=== PATIENT | male | born 1935 | race African-American/Black ===

== ENCOUNTER 2017-05-29 13:30 | Inpatient (IN) | payer OTHER, MEDICARE ==
[~2017-05-29] VITALS: Ht 170.2 cm; Wt 98.6 kg
[~2017-05-29 13:30] MED LIST: FURO1TAB93 PO; METO25 PO; POTA-243 PO
[2017-05-29 14:33] VITALS: BP 212/112; PULSE 83; RESP 18; TEMP 99.4; O2SAT 99
[2017-05-29] MEDS ORDERED: SODIUM CHLORIDE 0.9% FLUSH 10 ML FLUSH IVF PRN (14:45)
--- NOTE | 2017-05-29 14:54 | PD ---
HPI Chief Complaint: Edema Time Seen by Provider: 14:43 Travel History International Travel<30 days: No Contact w/Intl Traveler<30days: No Traveled to known affect area: No History of Present Illness HPI Patient is an 82-year-old male presenting to emergency department for evaluation of bilateral lower extremity edema. Patient states it was worse a few days ago. He usually keeps his legs elevated which helps. He denies any redness, drainage, foul odor, increased pain. He reports that on Saturday he was sitting in a chair eating when he turned and the chair flipped over. He denies any head injury or loss of consciousness. He is currently denying any chest pain, shortness breath, abdominal pain, nausea, vomiting, diarrhea. He states that he has not been on any medications since either the end of February the beginning march. 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 [facility] Past Medical History AAA: Yes Hypertension: Yes Past Surgical History Abdominal Aneurysm Repair: Yes Social History Alcohol Use: No Tobacco Use: No Substance Use: No Allergies-Medications (Allergen,Severity, Reaction): Coded Allergies: No Known Allergies (Verified , 02/13/09) Reported Meds & Prescriptions Reported Meds & Active Scripts Active Review of Systems Except as stated in HPI: all other systems reviewed are Neg Cardiovascular: Positive: Edema, No: Chest Pain or Discomfort Respiratory: No: Shortness of Breath Gastrointestinal: No: Nausea, Abdominal Pain Musculoskeletal: No: Myalgias Skin: Positive Dryness Neurologic: No: Weakness, Dizziness, Syncope Physical Exam Narrative GENERAL: Overweight, well-developed, alert elderly -[place] male. Presenting in no acute distress. SKIN: Warm and dry. Significantly dry, flaky, crusting skin to bilateral lower extremities. HEAD: Atraumatic. Normocephalic. EYES: Pupils equal and round. No scleral icterus. No injection or drainage. ENT: No nasal bleeding or discharge. Mucous membranes pink and moist. NECK: Trachea midline. No JVD. CARDIOVASCULAR: Mildly tachycardic. RESPIRATORY: No accessory muscle use. Clear to auscultation. Breath sounds equal bilaterally. GASTROINTESTINAL: Abdomen soft, non-tender, nondistended. Hepatic and splenic margins not palpable. MUSCULOSKELETAL: Extremities without clubbing, cyanosis, or edema. No obvious deformities. NEUROLOGICAL: Awake and alert. No obvious cranial nerve deficits. Motor grossly within normal limits. Five out of 5 muscle strength in the arms and legs. Normal speech. PSYCHIATRIC: Appropriate mood and affect; insight and judgment normal. Data Data Last Documented VS Vital Signs Date Time Temp Pulse Resp B/P (MAP) Pulse Ox O2 Delivery O2 Flow Rate FiO2 05/29/17 15:43 88 18 186/99 (128) 99 Room Air 05/29/17 14:33 99.4 Orders Orders Complete Blood Count With Diff (05/29/17 14:43) Comprehensive Metabolic Panel (05/29/17 14:43) B-Type Natriuretic Peptide (05/29/17 14:43) Act Partial Throm Time (Ptt) (05/29/17 14:43) Prothrombin Time / Inr (Pt) (05/29/17 14:43) Magnesium (Mg) (05/29/17 14:43) Urinalysis - C+S If Indicated (05/29/17 14:43) Iv Access Insert/Monitor (05/29/17 14:43) Electrocardiogram (05/29/17 14:43) Ecg Monitoring (05/29/17 14:43) Oximetry (05/29/17 14:43) Oxygen Administration (05/29/17 14:43) Chest, Single Ap (05/29/17 14:43) Sodium Chloride 0.9% Flush (Ns Flush) (05/29/17 14:45) Metoprolol Tartrate Inj (Lopressor Inj) (05/29/17 15:00) Cath For Specimen (05/29/17 15:43) Ornicept Request For Service (05/29/17 17:17) Comprehensive Metabolic Panel (05/30/17 06:00) Free Thyroxine (T4) (05/30/17 06:00) Hemoglobin (Hgb) A1c (05/30/17 06:00) Magnesium (Mg) (05/30/17 06:00) Phosphorus (Po4) (05/30/17 06:00) Thyroid Stimulating Hormone (05/30/17 06:00) Complete Blood Count With Diff (05/30/17 06:00) Bedside Glucose NITHIN.CSUGAR (05/29/17 18:21) Blood Glucose Goal (Criteria) (05/29/17 18:21) Hypoglycemia 70 Mg/Dl Or < (05/29/17 18:21) Notify Dr: Other (05/29/17 18:21) Dextrose 50% In Mel (Vial) Inj (D50w (Vi (05/29/17 18:30) Glucagon Inj (Glucagon Inj) (05/29/17 18:30) Case Management Consult (05/29/17 ) Insulin Aspart Supplemtl Scale (Novolog (05/29/17 21:00) Clonidine (Catapres) (05/29/17 18:30) Admit Order (Ed Use Only) (05/29/17 18:22) Labs Laboratory Tests Test 05/29/17 14:50 White Blood Count 8.3 TH/MM3 Red Blood Count 4.22 MIL/MM3 Hemoglobin 13.2 GM/DL Hematocrit 38.1 % Mean Corpuscular Volume 90.3 FL Mean Corpuscular Hemoglobin 31.4 PG Mean Corpuscular Hemoglobin Concent 34.8 % Red Cell Distribution Width 14.1 % Platelet Count 213 TH/MM3 Mean Platelet Volume 8.6 FL Neutrophils (%) (Auto) 78.9 % Lymphocytes (%) (Auto) 9.5 % Monocytes (%) (Auto) 10.2 % Eosinophils (%) (Auto) 0.7 % Basophils (%) (Auto) 0.7 % Neutrophils # (Auto) 6.6 TH/MM3 Lymphocytes # (Auto) 0.8 TH/MM3 Monocytes # (Auto) 0.9 TH/MM3 Eosinophils # (Auto) 0.1 TH/MM3 Basophils # (Auto) 0.1 TH/MM3 CBC Comment DIFF FINAL Differential Comment Prothrombin Time 11.2 SEC Prothromb Time International Ratio 1.1 RATIO Activated Partial Thromboplast Time 30.9 SEC Blood Urea Nitrogen 46 MG/DL Creatinine 2.98 MG/DL Random Glucose 123 MG/DL Total Protein 7.2 GM/DL Albumin 3.2 GM/DL Calcium Level 8.6 MG/DL Magnesium Level 2.2 MG/DL Alkaline Phosphatase 92 U/L Aspartate Amino Transf (AST/SGOT) 83 U/L Alanine Aminotransferase (ALT/SGPT) 24 U/L Total Bilirubin 1.1 MG/DL Sodium Level 140 MEQ/L Potassium Level 4.7 MEQ/L Chloride Level 106 MEQ/L Carbon Dioxide Level 23.8 MEQ/L Anion Gap 10 MEQ/L Estimat Glomerular Filtration Rate 25 ML/MIN B-Type Natriuretic Peptide 623 PG/ML [facility] Medical Decision Making Medical Screen Exam Complete: Yes Emergency Medical Condition: Yes Medical Record Reviewed: Yes Interpretation(s) Vital Signs Date Time Temp Pulse Resp B/P (MAP) Pulse Ox O2 Delivery O2 Flow Rate FiO2 05/29/17 14:33 99.4 83 18 212/112 (145) 99 Differential Diagnosis CHF versus metabolic abnormality versus hypertensive urgency versus other Narrative Course Patient is an 82-year-old male that initially presented for evaluation of bilateral lower extremity edema. His family is not present at bedside and he currently states that he has suprapubic pressure and has trouble voiding. He reports that when he fell the other day he was dizzy prior to the fall. Labs and imaging ordered and pending, will assess urinalysis. Patient was hypertensive on arrival, he was given metoprolol 5 mg IV 1 dose. Blood pressure trended down. CBC with no acute findings, chemistry with elevated BUN and creatinine 46/2.98, BNP is 623, chest x-ray shows no acute disease. Dr. Jimenez use ultrasound machine to visualize bladder. There was a significant amount of urinary retention. Attempted coud catheter twice with no success. Paged on-call urologist. Dr. Osorio returned page. He requested urology cart. Trubates paged. Dr. Osorio came to the emergency department and began to insert urinary catheter when patient spontaneously urinated at the exact same moment. Dr. Osorio recommended patient be placed on Flomax and he can follow-up as outpatient in his office. Paged [facility], Dr. Lam returned page, accepted admit. Orders placed. Discussed Dr. Osorio recommendations with him as well. Diagnosis Primary Impression: ARF (acute renal failure) Qualified Codes: N17.9 - Acute kidney failure, unspecified Additional Impressions: HTN (hypertension) Qualified Codes: I10 - Essential (primary) hypertension CHF (congestive heart failure) Qualified Codes: I50.9 - Heart failure, unspecified Urinary hesitancy Admitting Information Admitting Physician Requests: Admit Condition: Stable Priay Llamas Aruna STRONG May 29, 2017 14:54
[2017-05-29 14:58] VITALS: O2SAT 99
[2017-05-29] MEDS ORDERED: METOPROLOL TARTRATE 5 MG/5 ML VIAL IV PUSH ONE (15:00)
--- NOTE | 2017-05-29 15:18 | RADRPT ---
EXAM DATE/TIME: 05/29/2017 15:07 [facility] COMPARISON: No previous studies available for comparison. INDICATIONS : Short of breath after syncopal episode. MEDICAL HISTORY : Hypertension. SURGICAL HISTORY : CABG. ENCOUNTER: Initial ACUITY: 1 day PAIN SCORE: 0/10 LOCATION: Bilateral chest FINDINGS: A single view of the chest demonstrates the lungs to be symmetrically aerated without evidence of mas s, infiltrate or effusion. The cardiomediastinal contours are unremarkable. There is evidence of pre vious cardiothoracic surgery. Osseous structures are intact. CONCLUSION: No acute disease. Kranthi Mcgrath MD on May 29, 2017 at 15:15 Board Certified Radiologist. This report was verified electronically.
[2017-05-29 15:21] LABS: AUTOMATED NEUTROPHIL # 6.6 TH/MM3 (1.8-7.7); BASOPHIL # 0.1 TH/MM3 (0-0.2); BASOPHIL % 0.7 % (0.0-2.0); EOSINOPHIL # 0.1 TH/MM3 (0-0.4); EOSINOPHIL % 0.7 % (0.0-4.0); HEMATOCRIT 38.1 % (39.0-51.0); HEMOGLOBIN 13.2 GM/DL (13.0-17.0); LYMPH % 9.5 % (9.0-44.0); LYMPHOCYTE # 0.8 TH/MM3 (1.0-4.8); MEAN CELL VOLUME 90.3 FL (80.0-100.0); MEAN CORPUSCULAR HEMOGLOBIN 31.4 PG (27.0-34.0); MEAN CORPUSCULAR HGB CONC 34.8 % (32.0-36.0); MEAN PLATELET VOLUME 8.6 FL (7.0-11.0); MONO % 10.2 % (0.0-8.0); MONOCYTE # 0.9 TH/MM3 (0-0.9); NEUT % 78.9 % (16.0-70.0); PLATELET COUNT 213 TH/MM3 (150-450); RED BLOOD COUNT 4.22 MIL/MM3 (4.50-5.90); RED CELL DISTRIBUTION WIDTH 14.1 % (11.6-17.2); WHITE BLOOD COUNT 8.3 TH/MM3 (4.0-11.0)
[2017-05-29 15:27] LABS: INTERNATIONAL NORMALIZED RATIO 1.1 RATIO; PROTHROMBIN TIME - PATIENT 11.2 SEC (9.8-11.6)
[2017-05-29 15:43] VITALS: BP 186/99; PULSE 88; RESP 18; O2SAT 99
[2017-05-29 15:56] LABS: ALKALINE PHOSPHATASE 92 U/L (45-117); TOTAL BILIRUBIN ADULT 1.1 MG/DL (0.2-1.0); TOTAL PROTEIN 7.2 GM/DL (6.4-8.2)
[2017-05-29 16:19] LABS: ALBUMIN 3.2 GM/DL (3.4-5.0); ALT (GPT) 24 U/L (12-78); AST (GOT) 83 U/L (15-37); BICARBONATE 23.8 MEQ/L (21.0-32.0); BLOOD UREA NITROGEN 46 MG/DL (7-18); CALCIUM 8.6 MG/DL (8.5-10.1); CHLORIDE 106 MEQ/L (98-107); CREATININE 2.98 MG/DL (0.60-1.30); GLOMERULAR FILTRATION RATE 25 ML/MIN (>89); GLUCOSE,RANDOM 123 MG/DL (74-106); MAGNESIUM 2.2 MG/DL (1.5-2.5); SODIUM (NA) 140 MEQ/L (136-145)
[2017-05-29 18:26] VITALS: BP 174/90; PULSE 88; RESP 18; O2SAT 99
[2017-05-29] MEDS ORDERED: BISACODYL 10 MG SUPP RECTAL PRN ×2 (18:30)
[2017-05-29] MEDS ORDERED: oxyCODONE/ACETAMINOPHEN 10 MG/325 MG TAB PO PRN (18:30)
[2017-05-29] MEDS ORDERED: SENNOSIDES 8.6 MG TAB PO PRN ×2 (18:30)
[2017-05-29] MEDS ORDERED: amLODIPine BESYLATE 5 MG TAB PO ONE (18:30)
[2017-05-29] MEDS ORDERED: ACETAMINOPHEN 325 MG TAB PO PRN ×2 (18:30)
[2017-05-29] MEDS ORDERED: NALOXONE HCL 0.4 MG/ML AMP IV PUSH PRN ×2 (18:30)
[2017-05-29] MEDS ORDERED: LACTULOSE SYRUP 20 GM/30 ML CUP PO PRN ×2 (18:30)
[2017-05-29] MEDS ORDERED: FUROSEMIDE 40 MG TAB PO SCH (18:30)
[2017-05-29] MEDS ORDERED: GLUCAGON 1 MG/ML VIAL OTHER PRN (18:30)
[2017-05-29] MEDS ORDERED: MAGNESIUM HYDROXIDE SUSP 30 ML CUP PO PRN ×2 (18:30)
[2017-05-29] MEDS ORDERED: oxyCODONE/ACETAMINOPHEN 5 MG/325 MG TAB PO PRN (18:30)
[2017-05-29] MEDS ORDERED: MORPHINE SULFATE 2 MG/ML SYRINGE IV PUSH PRN (18:30)
[2017-05-29] MEDS ORDERED: ONDANSETRON HCL 4 MG/2 ML VIAL IVP PRN (18:30)
[2017-05-29] MEDS ORDERED: SODIUM CHLORIDE 0.9% FLUSH 10 ML FLUSH IV FLUSH PRN (18:30)
[2017-05-29] MEDS ORDERED: PROCHLORPERAZINE 25 MG SUPP RECTAL PRN (18:30)
[2017-05-29] MEDS ORDERED: DEXTROSE 50% IN WATER 50 ML VIAL(D50) IV PUSH PRN (18:30)
[2017-05-29] MEDS ORDERED: MORPHINE SULFATE 4 MG/ML INJ IV PUSH PRN (19:15)
[2017-05-29] MEDS: TAMSULOSIN HCL 0.4 MG CAP PO SCH (19:30)
[2017-05-29 20:04] LABS: AMORPHOUS SEDIMENT, URINE RARE; BACTERIA, URINE OCC /hpf; BILIRUBIN, URINE NEG (NEG); BLOOD, URINE LARGE (NEG); GLUCOSE,URINE NEG (NEG); KETONE, URINE NEG (NEG); NITRITE,URINE NEG (NEG); URINE LEUKOCYTE ESTERASE MOD (NEG)
[2017-05-29 20:05] LABS: URINE COLOR LIGHT-RED (YELLW/STRAW)
[2017-05-29] MEDS: METOPROLOL TARTRATE 25 MG TAB PO SCH (20:32)
[2017-05-29] MEDS: HEPARIN SODIUM - SQ 10,000 UNITS/ML VIAL SQ SCH (20:32)
[2017-05-29] MEDS: SODIUM CHLORIDE 0.9% FLUSH 10 ML FLUSH IV FLUSH SCH (20:32)
[2017-05-29] MEDS: DOCUSATE SODIUM 50 MG/SENNA 8.6 MG TAB PO SCH (20:32)
--- NOTE | 2017-05-29 20:42 | HHI.HP ---
[facility] Unknown Admission Diagnosis ARF, CHF, HTN Diagnoses: Travel History International Travel<30 Days: No Contact w/Intl Traveler <30 Da: No Traveled to Known Affected Are: No History of Present Illness 82-year-old male with a past medical history significant for hypertension, hyperlipidemia, borderline diabetes mellitus and history of DVT presents to the emergency department for evaluation of a fall. The patient complains of bilateral lower extremity edema for months and is noncompliant with his home medications. Patient denies any history of CHF. The patient reports that he was on the ground for 2-3 hours after his fall. He denies any loss of consciousness. He states he was trying to put on a sock when he lost his balance and fell onto his buttock. He complains of bilateral hip pain. He denies any head trauma. The patient states that he has had increasing fatigue and weakness over the past several months. He has not seen his doctor since February and has been noncompliant with all medication since that time. Patient denies fever/chills. Denies shortness of breath or chest pain. Denies nausea/vomiting/diarrhea. No lateralizing signs/symptoms. He is an extremely poor historian. Review of Systems Except as stated in HPI: all other systems reviewed are Neg Past Family Social History Past Medical History Hypertension Hyperlipidemia Diabetes mellitus? History of DVT 1, not on chronic anticoagulation Past Surgical History Aortic dissection repair Reported Medications Reported Meds & Active Scripts Active Allergies: Coded Allergies: No Known Allergies (Verified , 02/13/09) Family History Mother with diabetes mellitus Social History Denies tobacco, illicit drugs. Rare alcohol Physical Exam Vital Signs Vital Signs Date Time Temp Pulse Resp B/P (MAP) Pulse Ox O2 Delivery O2 Flow Rate FiO2 05/29/17 18:26 88 18 174/90 (118) 99 Room Air 05/29/17 15:43 88 18 186/99 (128) 99 Room Air 05/29/17 14:58 99 Room Air 05/29/17 14:58 99 05/29/17 14:33 99.4 83 18 212/112 (145) 99 Physical Exam GENERAL: Cecilia male lying in bed SKIN: Dry, scaly skin covering bilateral lower extremities with chronic skin changes present HEAD: Atraumatic. Normocephalic. No temporal or scalp tenderness. EYES: Pupils equal round and reactive. Extraocular motions intact. No scleral icterus. No injection or drainage. ENT: Nose without bleeding, purulent drainage or septal hematoma. Throat without erythema, tonsillar hypertrophy or exudate. Uvula midline. Airway patent. NECK: Trachea midline. No JVD or lymphadenopathy. Supple, nontender, no meningeal signs. CARDIOVASCULAR: Regular rate and rhythm without murmurs, gallops, or rubs. RESPIRATORY: Clear to auscultation. Breath sounds equal bilaterally. No wheezes , rales, or rhonchi. GASTROINTESTINAL: Abdomen soft, non-tender, nondistended. No hepato-splenomegaly , or palpable masses. No guarding. MUSCULOSKELETAL: 2+ pitting edema in the bilateral lower extremities NEUROLOGICAL: Awake and alert. Cranial nerves II through XII intact. Motor and sensory grossly within normal limits. Normal speech. Laboratory Laboratory Tests Test 05/29/17 14:50 05/29/17 18:02 White Blood Count 8.3 Red Blood Count 4.22 Hemoglobin 13.2 Hematocrit 38.1 Mean Corpuscular Volume 90.3 Mean Corpuscular Hemoglobin 31.4 Mean Corpuscular Hemoglobin Concent 34.8 Red Cell Distribution Width 14.1 Platelet Count 213 Mean Platelet Volume 8.6 Neutrophils (%) (Auto) 78.9 Lymphocytes (%) (Auto) 9.5 Monocytes (%) (Auto) 10.2 Eosinophils (%) (Auto) 0.7 Basophils (%) (Auto) 0.7 Neutrophils # (Auto) 6.6 Lymphocytes # (Auto) 0.8 Monocytes # (Auto) 0.9 Eosinophils # (Auto) 0.1 Basophils # (Auto) 0.1 CBC Comment DIFF FINAL Differential Comment Prothrombin Time 11.2 Prothromb Time International Ratio 1.1 Activated Partial Thromboplast Time 30.9 Blood Urea Nitrogen 46 Creatinine 2.98 Random Glucose 123 Total Protein 7.2 Albumin 3.2 Calcium Level 8.6 Magnesium Level 2.2 Alkaline Phosphatase 92 Aspartate Amino Transf (AST/SGOT) 83 Alanine Aminotransferase (ALT/SGPT) 24 Total Bilirubin 1.1 Sodium Level 140 Potassium Level 4.7 Chloride Level 106 Carbon Dioxide Level 23.8 Anion Gap 10 Estimat Glomerular Filtration Rate 25 B-Type Natriuretic Peptide 623 Urine Color LIGHT-RED Urine Turbidity HAZY Urine pH 6.0 Urine Specific Filley 1.017 Urine Protein 300 Urine Glucose (UA) NEG Urine Ketones NEG Urine Occult Blood LARGE Urine Nitrite NEG Urine Bilirubin NEG Urine Urobilinogen LESS THAN 2.0 Urine Leukocyte Esterase MOD Urine RBC Urine WBC 83 Urine Amorphous Sediment RARE Urine Bacteria OCC Microscopic Urinalysis Comment CULTURE INDICATED Date/Time Source Procedure Growth Status 05/29/17 18:02 Urine Clean Catch Urine Culture Pending Received Result Diagram: 05/29/17 1450 05/29/17 1450 Caprini VTE Risk Assessment Caprini VTE Risk Assessment: Mod/High Risk (score >= 2) Caprini Risk Assessment Model Point Value = 1 Point Value = 2 Point Value = 3 Point Value = 5 Age 41-60 Minor surgery BMI > 25 kg/m2 Swollen legs Varicose veins or History of unexplained or recurrent spontaneous Oral contraceptives or hormone replacement Sepsis (< 1 month) Serious lung disease, including pneumonia (< 1 month) Abnormal pulmonary function Acute myocardial infarction Congestive heart failure (< 1 month) History of inflammatory bowel disease Medical patient at bed rest Age 61-74 Arthroscopic surgery Major open surgery (> 45 min) Laparoscopic surgery (> 45 min) Malignancy Confined to bed (> 72 hours) Immobilizing plaster cast Central venous access Age >= 75 History of VTE Family history of VTE Factor V Leiden Prothrombin 12508T Lupus anticoagulant Anticardiolipin antibodies Elevated serum homocysteine Heparin-induced thrombocytopenia Other congenital or acquired thrombophilia Stroke (< 1 month) Elective arthroplasty Hip, pelvis, or leg fracture Acute spinal cord injury (< 1 month) Prophylaxis Regimen Total Risk Factor Score Risk Level Prophylaxis Regimen 0-1 Low Early ambulation 2 Moderate Order ONE of the following: *Sequential Compression Device (SCD) *Heparin 5000 units SQ BID 3-4 Higher Order ONE of the following medications: *Heparin 5000 units SQ TID *Enoxaparin/Lovenox 40 mg SQ daily (WT < 150 kg, CrCl > 30 mL/min) *Enoxaparin/Lovenox 30 mg SQ daily (WT < 150 kg, CrCl > 10-29 mL/min) *Enoxaparin/Lovenox 30 mg SQ BID (WT < 150 kg, CrCl > 30 mL/min) AND/OR *Sequential Compression Device (SCD) 5 or more Highest Order ONE of the following medications: *Heparin 5000 units SQ TID (Preferred with Epidurals) *Enoxaparin/Lovenox 40 mg SQ daily (WT < 150 kg, CrCl > 30 mL/min) *Enoxaparin/Lovenox 30 mg SQ daily (WT < 150 kg, CrCl > 10-29 mL/min) *Enoxaparin/Lovenox 30 mg SQ BID (WT < 150 kg, CrCl > 30 mL/min) AND *Sequential Compression Device (SCD) Assessment and Plan Assessment and Plan Assessment/plan: 1. Fall Patient suffered a mechanical fall Complaining of bilateral hip pain Pelvic x-ray pending PT 2. Acute kidney injury BUN/creatinine 46/2.98 Baseline unknown Concern for rhabdo given fall, CK pending Gentle IV fluid hydration given lower extremity edema Monitor renal function Consider nephrology consult if renal function does not improve 3. Bilateral lower extremity edema Patient with history of DVT; bilateral ultrasound pending BMP 623, echo pending IV Lasix - 20 mg twice a day given ROBINSON Chest x-ray with no signs of volume overload, personally reviewed ACS rule out pending 4. Hypertension/hyperlipidemia Metoprolol with clonidine when necessary Lipid profile pending 5. ? Diabetes mellitus A1c pending Sliding scale insulin Monitor blood glucose FEN Renal diet NS at 70 cc/hr Electrolytes: monitor and replete prn Heparin Physician Certification 2 Midnight Certification Type: Admission for Inpatient Services Order for Inpatient Services The services are ordered in accordance with Medicare regulations or non- Medicare payer requirements, as applicable. In the case of services not specified as inpatient-only, they are appropriately provided as inpatient services in accordance with the 2-midnight benchmark. Estimated LOS (days): 2 2 days is the estimated time the patient will need to remain in the hospital, assuming treatment plan goals are met and no additional complications. Post-Hospital Plan: Not yet determined Diana Roman MD May 29, 2017 20:42
[2017-05-29] MEDS: INSULIN ASPART SUPPLEMENTAL SCALE SQ SCH (21:00)
[2017-05-29] MEDS ORDERED: DOCUSATE SODIUM 50 MG/SENNA 8.6 MG TAB PO SCH (21:00)
--- NOTE | 2017-05-29 21:30 | RADRPT ---
EXAM DATE/TIME: 05/29/2017 20:53 [facility] COMPARISON: No previous studies available for comparison. INDICATIONS : Pelvic pain after fall. MEDICAL HISTORY : Hypertension. SURGICAL HISTORY : None. ENCOUNTER: Initial ACUITY: 3 days PAIN SCORE: 4/10 LOCATION: Bilateral pelvis FINDINGS: An acute abnormality is not seen. The hips joints are normally aligned. The pubic symphysis is aligne d. There is fusion of the sacroiliac joints. There is chronic hypertrophic change of the lateral aspe ct of the iliac bones bilaterally being more prominent on the right. There is degenerative change in the lower lumbar spine. Clips are seen over the left hip region. CONCLUSION: Chronic change. Nestor Sorensen MD on May 29, 2017 at 21:26 Board Certified Radiologist. This report was verified electronically.
[2017-05-29 22:17] LABS: TROPONIN I 0.48 NG/ML (0.02-0.05)
--- NOTE | 2017-05-29 22:35 | RADRPT ---
EXAM DATE/TIME: 05/29/2017 22:18 [facility] COMPARISON: No previous studies available for comparison. INDICATIONS : Bilateral leg swelling. MEDICAL HISTORY : Aneurysm, abdominal. Hypertension. SURGICAL HISTORY : Abdominal aortic aneurysm repair. Cervical surgery. ENCOUNTER: Initial ACUITY: 2 months PAIN SCORE: 8/10 LOCATION: Bilateral legs. TECHNIQUE: Venous ultrasound of the left and right leg was performed from the inguinal ligament to the proximal calf. Real-time, color Doppler and spectral tracing, compression and augmentation techniques were us ed. FINDINGS: RIGHT LEG: There is a pseudoaneurysm which is primarily thrombosed seen at the right groin region measuring 3.5 x 3.7 x 3.3 cm. There is normal compressibility of the deep venous system from the inguinal region to the proxim al calf. No echogenic clot is seen in the lumen of the common femoral, femoral, popliteal, and poste rior tibial veins. There is a normal response of the venous system to proximal and distal augmentati on and respiration. LEFT LEG: There is normal compressibility of the deep venous system from the inguinal region to the proximal ca lf. No echogenic clot is seen in the lumen of the common femoral, femoral, popliteal, and posterior tibial veins. There is a normal response of the venous system to proximal and distal augmentation an d respiration. CONCLUSION: 1. No DVT. 2. 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 This is seen at the anastomosis with a graft. There is c olor-flow at the orifice of the pseudoaneurysm. The vast majority of the pseudoaneurysm is thrombosed . Nestor Sorensen MD on May 29, 2017 at 22:31 Board Certified Radiologist. This report was verified electronically.
[2017-05-29] MEDS: cloNIDine HCL 0.1 MG TAB PO PRN (22:59)
[2017-05-29 23:00] VITALS: BP 183/99; PULSE 76; RESP 18; TEMP 98.6; O2SAT 99
[2017-05-30] VITALS (11 sets, daily range): BP systolic 123–184; BP diastolic 57–90; PULSE 69–89; RESP 16–20; TEMP 97.5–98.6; O2SAT 93–100
[2017-05-30 02:14] LABS: BASOPHIL # 0.1 TH/MM3 (0-0.2); BASOPHIL % 0.6 % (0.0-2.0); EOSINOPHIL # 0.2 TH/MM3 (0-0.4); EOSINOPHIL % 2.5 % (0.0-4.0); HEMATOCRIT 33.8 % (39.0-51.0); HEMOGLOBIN 11.8 GM/DL (13.0-17.0); LYMPH % 13.4 % (9.0-44.0); LYMPHOCYTE # 1.1 TH/MM3 (1.0-4.8); MEAN CELL VOLUME 91.2 FL (80.0-100.0); MEAN CORPUSCULAR HEMOGLOBIN 31.9 PG (27.0-34.0); MEAN PLATELET VOLUME 8.1 FL (7.0-11.0); MONO % 12.5 % (0.0-8.0); MONOCYTE # 1.1 TH/MM3 (0-0.9); PLATELET COUNT 182 TH/MM3 (150-450); RED BLOOD COUNT 3.71 MIL/MM3 (4.50-5.90); WHITE BLOOD COUNT 8.5 TH/MM3 (4.0-11.0)
[2017-05-30 02:51] LABS: ALBUMIN 2.5 GM/DL (3.4-5.0); ALKALINE PHOSPHATASE 78 U/L (45-117); ALT (GPT) 22 U/L (12-78); AST (GOT) 59 U/L (15-37); BICARBONATE 23.8 MEQ/L (21.0-32.0); BLOOD UREA NITROGEN 45 MG/DL (7-18); CALCIUM 7.8 MG/DL (8.5-10.1); CHLORIDE 109 MEQ/L (98-107); CREATININE 2.86 MG/DL (0.60-1.30); GLOMERULAR FILTRATION RATE 26 ML/MIN (>89); GLUCOSE,RANDOM 121 MG/DL (74-106); PHOSPHORUS 2.9 MG/DL (2.5-4.9); SODIUM (NA) 141 MEQ/L (136-145); TOTAL BILIRUBIN ADULT 0.7 MG/DL (0.2-1.0); TOTAL PROTEIN 5.8 GM/DL (6.4-8.2); TROPONIN I 0.46 NG/ML (0.02-0.05)
[2017-05-30 07:39] LABS: CHOLESTEROL/ HDL RATIO 3.87 RATIO; HDL CHOLESTEROL 48.8 MG/DL (40.0-60.0)
[2017-05-30] MEDS: INSULIN ASPART SUPPLEMENTAL SCALE SQ SCH ×4 (08:00→20:58)
[2017-05-30] MEDS: amLODIPine BESYLATE 5 MG TAB PO SCH (08:44)
[2017-05-30] MEDS: TAMSULOSIN HCL 0.4 MG CAP PO SCH (08:44)
[2017-05-30] MEDS: METOPROLOL TARTRATE 25 MG TAB PO SCH ×2 (08:44→20:57)
[2017-05-30] MEDS: DOCUSATE SODIUM 50 MG/SENNA 8.6 MG TAB PO SCH ×2 (08:44→20:57)
[2017-05-30] MEDS: HEPARIN SODIUM - SQ 10,000 UNITS/ML VIAL SQ SCH ×2 (08:45→20:57)
[2017-05-30] MEDS: SODIUM CHLORIDE 0.9% FLUSH 10 ML FLUSH IV FLUSH SCH ×2 (08:46→21:26)
[2017-05-30] MEDS ORDERED: FUROSEMIDE 20 MG/2 ML VIAL IV PUSH SCH (09:00)
[2017-05-30] MEDS: SODIUM CHLOR 0.9% 1000 ML INJ 1,000 ML IV SCH ×3 (10:48→23:39)
--- NOTE | 2017-05-30 13:25 | EKG ---
Date Performed: 05/29/2017 Time Performed: 15:16:38 PTAGE: 82 years EKG: Sinus rhythm WITH OCCASIONAL SUPRAVENTRICULAR PREMATURE COMPLEXES POSSIBLE LEFT ATRIAL ENLARGEMENT MARKED LEFT AX IS DEVIATION INCOMPLETE RIGHT BUNDLE BRANCH BLOCK LEFT VENTRICULAR HYPERTROPHY AND ST-T CHANGE ABNORM AL ECG Compared to PREVIOUS TRACING , left ventricular hypertrophy with repolarization changes are new. PREV IOUS TRACIN11/10/2000 15.59 DOCTOR: Luisito Chris Interpretating Date/Time 05/30/2017 13:23:59
--- NOTE | 2017-05-30 14:03 | ECHRPT ---
Indication: Cardiomyopathy, unspecified CONCLUSIONS Normal left ventricular size and wall thickness. The left ventricular systolic function is normal wi th an estimated ejection fraction in the range of 55-60%. Poor apical views; regional wall motion abnorm alities cannot be excluded. Trace mitral valve regurgitation. The aortic valve is not well visualized. Trace aortic valve regurgitation. BP: 123 / 64 HR: 69 Rhythm: Sinus MEASUREMENTS (Male / Female) Normal Values Technical Quality:Good 2D ECHO LV Diastolic Diameter PLAX 4.8 cm 4.2 - 5.9 / 3.9 - 5.3 cm LV Systolic Diameter PLAX 3.9 cm IVS Diastolic Thickness 1.0 cm 0.6 - 1.0 / 0.6 - 0.9 cm LVPW Diastolic Thickness 1.0 cm 0.6 - 1.0 / 0.6 - 0.9 cm LV Relative Wall Thickness 0.4 LVOT Diameter 2.2 cm M-MODE Aortic Root Diameter MM 2.5 cm LA Systolic Diameter MM 3.6 cm LA Ao Ratio MM 1.4 AV Cusp Separation MM 1.8 cm DOPPLER AV Peak Velocity 105.0 cm/s AV Peak Gradient 4.4 mmHg LVOT Peak Velocity 62.2 cm/s LVOT Peak Gradient 1.5 mmHg AV Area Cont Eq pk 2.3 cm MR Peak Velocity 337.5 cm/s MR Peak Gradient 45.6 mmHg Mitral E Point Velocity 55.3 cm/s Mitral A Point Velocity 38.5 cm/s Mitral E to A Ratio 1.4 LV E' Lateral Velocity 6.1 cm/s Mitral E to LV E' Lateral Ratio 9.0 LV E' Septal Velocity 4.1 cm/s Mitral E to LV E' Septal Ratio 13.5 PV Peak Velocity 96.4 cm/s PV Peak Gradient 3.7 mmHg FINDINGS LEFT VENTRICLE Normal left ventricular size and wall thickness. The left ventricular systolic function is normal wi th an estimated ejection fraction in the range of 55-60%. Poor apical views; regional wall motion abnorm alities cannot be excluded. RIGHT VENTRICLE Normal right ventricular size and systolic function. LEFT ATRIUM The left atrial size is normal. RIGHT ATRIUM The right atrial size is normal. ATRIAL SEPTUM Normal atrial septal thickness without atrial level shunting by limited color doppler interrogation. AORTA The aortic root and proximal ascending aorta are normal in size on limited imaging. MITRAL VALVE Trace mitral valve regurgitation. AORTIC VALVE The aortic valve is not well visualized. Trace aortic valve regurgitation. TRICUSPID VALVE Structurally normal tricuspid valve. No tricuspid valve stenosis or regurgitation. PULMONARY VALVE Trivial pulmonary valve regurgitation. VESSELS The inferior vena cava is normal in size. PERICARDIUM No pericardial effusion. Speedy Clayton MD (Electronically Signed) Final Date:30 May 2017 14:02
[2017-05-30 14:10] LABS: HEMOGLOBIN A1C 4.4 % (4.3-6.0)
--- NOTE | 2017-05-30 15:48 | HHI.PR ---
Subjective Remarks 82-year-old male with a past medical history significant for hypertension, hyperlipidemia, borderline diabetes mellitus and history of DVT presents to the emergency department for evaluation of a fall. The patient complains of bilateral lower extremity edema for months and is noncompliant with his home medications. Patient denies any history of CHF. The patient reports that he was on the ground for 2-3 hours after his fall. He denies any loss of consciousness. He states he was trying to put on a sock when he lost his balance and fell onto his buttock. He complains of bilateral hip pain. He denies any head trauma. The patient states that he has had increasing fatigue and weakness over the past several months. He has not seen his doctor since February and has been noncompliant with all medication since that time. Patient denies fever/chills. Denies shortness of breath or chest pain. Denies nausea/vomiting/diarrhea. No lateralizing signs/symptoms. He is an extremely poor historian. 05-30 medications restarted checking UA DW RN AND PT NO CURRENT COMPLAINTS BREATHING BETTER NEEDS TO WORK WITH PT AND OT Objective Vitals Vital Signs Date Time Temp Pulse Resp B/P (MAP) Pulse Ox O2 Delivery O2 Flow Rate FiO2 05/30/17 11:57 98.3 76 18 136/65 (88) 99 05/30/17 08:42 99 21 05/30/17 08:00 98.3 69 18 123/64 (83) 100 05/30/17 03:57 98.6 74 18 124/57 (79) 100 05/30/17 00:50 74 16 139/83 (101) 100 05/29/17 23:00 98.6 76 18 183/99 (127) 99 05/29/17 22:15 05/29/17 18:26 88 18 174/90 (118) 99 Room Air 05/29/17 15:43 88 18 186/99 (128) 99 Room Air I/O 05/29/17 05/29/17 05/29/17 05/30/17 05/30/17 05/30/17 07:00 15:00 23:00 07:00 15:00 23:00 Intake Total 360 ml 400 ml Output Total 250 ml Balance 360 ml 150 ml Intake Oral 360 ml 400 ml Output Urine Total 250 ml # Voids 3 # Bowel Movements 0 1 Result Diagram: 05/30/17 02005/30/17 020 Other Results Laboratory Tests Test 05/29/17 14:50 05/29/17 18:02 05/29/17 20:30 05/30/17 02:00 White Blood Count 8.3 TH/MM3 8.5 TH/MM3 Red Blood Count 4.22 MIL/MM3 3.71 MIL/MM3 Hemoglobin 13.2 GM/DL 11.8 GM/DL Hematocrit 38.1 % 33.8 % Mean Corpuscular Volume 90.3 FL 91.2 FL Mean Corpuscular Hemoglobin 31.4 PG 31.9 PG Mean Corpuscular Hemoglobin Concent 34.8 % 35.0 % Red Cell Distribution Width 14.1 % 14.0 % Platelet Count 213 TH/MM3 182 TH/MM3 Mean Platelet Volume 8.6 FL 8.1 FL Neutrophils (%) (Auto) 78.9 % 71.0 % Lymphocytes (%) (Auto) 9.5 % 13.4 % Monocytes (%) (Auto) 10.2 % 12.5 % Eosinophils (%) (Auto) 0.7 % 2.5 % Basophils (%) (Auto) 0.7 % 0.6 % Neutrophils # (Auto) 6.6 TH/MM3 6.0 TH/MM3 Lymphocytes # (Auto) 0.8 TH/MM3 1.1 TH/MM3 Monocytes # (Auto) 0.9 TH/MM3 1.1 TH/MM3 Eosinophils # (Auto) 0.1 TH/MM3 0.2 TH/MM3 Basophils # (Auto) 0.1 TH/MM3 0.1 TH/MM3 CBC Comment DIFF FINAL DIFF FINAL Differential Comment Prothrombin Time 11.2 SEC Prothromb Time International Ratio 1.1 RATIO Activated Partial Thromboplast Time 30.9 SEC Blood Urea Nitrogen 46 MG/DL 45 MG/DL Creatinine 2.98 MG/DL 2.86 MG/DL Random Glucose 123 MG/DL 121 MG/DL Total Protein 7.2 GM/DL 5.8 GM/DL Albumin 3.2 GM/DL 2.5 GM/DL Calcium Level 8.6 MG/DL 7.8 MG/DL Magnesium Level 2.2 MG/DL 2.0 MG/DL Alkaline Phosphatase 92 U/L 78 U/L Aspartate Amino Transf (AST/SGOT) 83 U/L 59 U/L Alanine Aminotransferase (ALT/SGPT) 24 U/L 22 U/L Total Bilirubin 1.1 MG/DL 0.7 MG/DL Sodium Level 140 MEQ/L 141 MEQ/L Potassium Level 4.7 MEQ/L 4.2 MEQ/L Chloride Level 106 MEQ/L 109 MEQ/L Carbon Dioxide Level 23.8 MEQ/L 23.8 MEQ/L Anion Gap 10 MEQ/L 8 MEQ/L Estimat Glomerular Filtration Rate 25 ML/MIN 26 ML/MIN Hemoglobin A1c 4.4 % B-Type Natriuretic Peptide 623 PG/ML Urine Color LIGHT-RED Urine Turbidity HAZY Urine pH 6.0 Urine Specific [place] 1.017 Urine Protein 300 mg/dL Urine Glucose (UA) NEG mg/dL Urine Ketones NEG mg/dL Urine Occult Blood LARGE Urine Nitrite NEG Urine Bilirubin NEG Urine Urobilinogen LESS THAN 2.0 MG/DL Urine Leukocyte Esterase MOD Urine RBC /hpf Urine WBC 83 /hpf Urine Amorphous Sediment RARE Urine Bacteria OCC /hpf Microscopic Urinalysis Comment CULTURE INDICATED Total Creatine Kinase 1333 U/L 1133 U/L Creatine Kinase MB 9.1 NG/ML 7.6 NG/ML Creatine Kinase MB % 0.7 % 0.7 % Troponin I 0.48 NG/ML 0.46 NG/ML Phosphorus Level 2.9 MG/DL Free Thyroxine 1.40 NG/DL Thyroid Stimulating Hormone 3rd Gen 1.290 uIU/ML Test 05/30/17 05:22 Triglycerides Level 102 MG/DL Cholesterol Level 189 MG/DL LDL Cholesterol 120 MG/DL HDL Cholesterol 48.8 MG/DL Cholesterol/HDL Ratio 3.87 RATIO Imaging Last Impressions Chest X-Ray 05/29/17 1443 Signed Impressions: Service Date/Time: Monday, May 29, 2017 15:07 - CONCLUSION: No acute disease. Kranthi Mcgrath MD Pelvis X-Ray 05/29/17 0000 Signed Impressions: Service Date/Time: Monday, May 29, 2017 20:53 - CONCLUSION: Chronic change. Nestor Sorensen MD Lower Extremity Ultrasound 05/29/17 0000 Signed Impressions: Service Date/Time: Monday, May 29, 2017 22:18 - CONCLUSION: 1. No DVT. 2. 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 This is seen at the anastomosis with a graft. There is color-flow at the orifice of the pseudoaneurysm. The vast majority of the pseudoaneurysm is thrombosed. Nestor Sorensen MD Objective Remarks GENERAL: Cecilia male lying in bed SKIN: Dry, scaly skin covering bilateral lower extremities with chronic skin changes present MIDLINE INCISION FROM CHEST TO UMBILICUS OLD HEALED HEAD: Atraumatic. Normocephalic. No temporal or scalp tenderness. EYES: Pupils equal round and reactive. Extraocular motions intact. No scleral icterus. No injection or drainage. ENT: Nose without bleeding, purulent drainage or septal hematoma. Throat without erythema, tonsillar hypertrophy or exudate. Uvula midline. Airway patent. NECK: Trachea midline. No JVD or lymphadenopathy. Supple, nontender, no meningeal signs. CARDIOVASCULAR: Regular rate and rhythm without murmurs, gallops, or rubs. RESPIRATORY: Clear to auscultation. Breath sounds equal bilaterally. No wheezes , rales, or rhonchi. GASTROINTESTINAL: Abdomen soft, non-tender, nondistended. No hepato-splenomegaly , or palpable masses. No guarding. MUSCULOSKELETAL: 3+ pitting edema in the bilateral lower extremities BRAWNY EDEMA BL LE NEUROLOGICAL: Awake and alert. Cranial nerves II through XII intact. Motor and sensory grossly within normal limits. Normal speech. INSIGHT AND JUDGEMENT ARE GOOD MOOD AND BEHAVIOR ARE APPROPRIATE Medications and IVs Current Medications Sodium Chloride (NS Flush) 2 ml UNSCH PRN IVF FLUSH AFTER USING IV ACCESS; Start 05/29/17 at 14:45; Stop 05/29/17 at 18:47; Status DC Metoprolol Tartrate (Lopressor Inj) 5 mg ONCE ONCE IV PUSH Last administered on 05/29/17at 15:11; Start 05/29/17 at 15:00; Stop 05/29/17 at 15:01; Status DC Dextrose (D50w (Vial) Inj) 50 ml UNSCH PRN IV PUSH HYPOGLYCEMIA-SEE COMMENTS; Start 05/29/17 at 18:30 Glucagon (Glucagon Inj) 1 mg UNSCH PRN OTHER HYPOGLYCEMIA-SEE COMMENTS; Start 05/29/17 at 18:30 Insulin Aspart (NovoLOG SUPPLEMENTAL SCALE) 1 ACHS SLIDING SCALE SQ ; Start at 21:00 Clonidine (Catapres) 0.1 mg Q4H PRN PO SBP>160, DBP>90 Last administered on at 22:59; Start 05/29/17 at 18:30 Metoprolol Tartrate (Lopressor) 25 mg Q12HR PO Last administered on 05/30/17at 08:44; Start 05/29/17 at 21:00 Furosemide (Lasix) 40 mg DAILY PO ; Start 05/29/17 at 18:30; Stop 05/29/17 at 20 :29; Status DC Amlodipine Besylate (Norvasc) 5 mg ONCE ONCE PO Last administered on at 20:32; Start 05/29/17 at 18:30; Stop 05/29/17 at 18:48; Status DC Amlodipine Besylate (Norvasc) 5 mg DAILY PO Last administered on 05/30/17at 08: 44; Start 05/30/17 at 09:00 Tamsulosin HCl (Flomax) 0.4 mg DAILY PO Last administered on 05/30/17at 08:44; Start 05/29/17 at 19:30 Sodium Chloride (NS Flush) 2 ml UNSCH PRN IV FLUSH FLUSH AFTER USING IV ACCESS ; Start 05/29/17 at 18:30 Sodium Chloride (NS Flush) 2 ml BID IV FLUSH Last administered on 05/30/17at 08: 46; Start 05/29/17 at 21:00 Naloxone HCl (Narcan Inj) 0.4 mg UNSCH PRN IV PUSH SEE LABEL COMMENTS; Start at 18:30 Senna/Docusate Sodium (Danyelle-Colace) 1 tab BID PO ; Start 05/29/17 at 21:00; Stop 05/29/17 at 21:00; Status DC Magnesium Hydroxide (Milk Of Magnesia Liq) 30 ml Q12H PRN PO Mild constipation ; Start 05/29/17 at 18:30 Sennosides (Senokot) 17.2 mg Q12H PRN PO Moderate constipation; Start 05/29/17 at 18:30; Stop 05/29/17 at 18:50; Status DC Bisacodyl (Dulcolax Supp) 10 mg DAILY PRN RECTAL SEVERE CONSITIPATION; Start at 18:30 Lactulose (Lactulose Liq) 30 ml DAILY PRN PO SEVERE CONSITIPATION; Start at 18:30; Stop 05/29/17 at 18:50; Status DC Acetaminophen (Tylenol) 650 mg Q4H PRN PO TEMP > 100.4; Start 05/29/17 at 18:30 Ondansetron HCl (Zofran Inj) 4 mg Q6H PRN IVP NAUSEA OR VOMITING; Start at 18:30 Prochlorperazine (Compazine Supp) 25 mg Q12H PRN RECTAL NAUSEA OR VOMITING; Start 05/29/17 at 18:30 Heparin Sodium (Porcine) (Heparin Inj) 5,000 units Q12H SQ Last administered on 05/30/17at 08:45; Start 05/29/17 at 20:00 Acetaminophen (Tylenol) 650 mg Q6H PRN PO PAIN SCALE 1 TO 2; Start 05/29/17 at 18:30 Oxycodone/ Acetaminophen (Percocet 5-325 Mg) 1 tab Q6H PRN PO PAIN SCALE 3 TO 5; Start 05/29/17 at 18:30 Oxycodone/ Acetaminophen (Percocet 10-325 Mg) 1 tab Q6H PRN PO PAIN SCALE 6 TO 10; Start 05/29/17 at 18:30 Morphine Sulfate (Morphine Inj) 2 mg Q3H PRN IV PUSH Pain 3-5; if unable to take PO; Start 05/29/17 at 18:30 Morphine Sulfate (Morphine Inj) 4 mg Q3H PRN IV PUSH Pain 6-10;if unable to take PO; Start 05/29/17 at 19:15 Naloxone HCl (Narcan Inj) 0.4 mg UNSCH PRN IV PUSH SEE LABEL COMMENTS; Start at 18:30; Stop 05/29/17 at 18:50; Status DC Senna/Docusate Sodium (Danyelle-Colace) 1 tab BID PO Last administered on at 08:44; Start 05/29/17 at 21:00 Magnesium Hydroxide (Milk Of Magnesia Liq) 30 ml Q12H PRN PO Mild constipation ; Start 05/29/17 at 18:30; Stop 05/29/17 at 18:50; Status DC Sennosides (Senokot) 17.2 mg Q12H PRN PO Moderate constipation; Start 05/29/17 at 18:30 Bisacodyl (Dulcolax Supp) 10 mg DAILY PRN RECTAL SEVERE CONSITIPATION; Start at 18:30; Stop 05/29/17 at 19:03; Status DC Lactulose (Lactulose Liq) 30 ml DAILY PRN PO SEVERE CONSITIPATION; Start at 18:30 Sodium Chloride 1,000 ml @ 70 mls/hr [id number] IV ; Start 05/29/17 at 20:30 Furosemide (Lasix Inj) 20 mg BID@09,18 IV PUSH Last administered on 05/30/17at 08:45; Start 05/30/17 at 09:00 A/P Assessment and Plan 1. Fall Patient suffered a mechanical fall Complaining of bilateral hip pain Pelvic x-ray pending PT AND OT 2. Acute kidney injury BUN/creatinine 46/2.98 Baseline unknown Concern for rhabdo given fall, CK pending Gentle IV fluid hydration given lower extremity edema Monitor renal function Consider nephrology consult if renal function does not improve 3. Bilateral lower extremity edema Patient with history of DVT; bilateral ultrasound pending BMP 623, echo pending IV Lasix - 20 mg twice a day given ROBINSON Chest x-ray with no signs of volume overload, personally reviewed ACS rule out pending CONSULT VASCULAR REGARDING US OF RIGHT GROIN 4. Hypertension/hyperlipidemia Metoprolol with clonidine when necessary Lipid profile pending 5. ? Diabetes mellitus A1c pending Sliding scale insulin Monitor blood glucose FEN Renal diet NS at 70 cc/hr Electrolytes: monitor and replete prn Heparin UTI- ROCEPHIN 1 GRAM DAILY Discharge Planning PENDING IMPROVEMENT IN ACTIVITY AND OR KIDNEY FUNCTIONS AM LABS Hiro Tom DO May 30, 2017 15:48
--- NOTE | 2017-05-30 15:57 | PD.VS.CON ---
History of Present Illness Chief Complaint: R groin pseudoaneurysm Consult Requested by: Medical service History of Present Illness 82 yo male adm after a fall on Saturday that he says he landed flat on his back. C/o hip pain that led to R groin duplex. This showed a pseudoaneurysm. The patient has no groin pain. He has a notable history of aortic dissection repaired in 1972 according to the patient, but he is somewhat of a poor historian. He likely had a groin cannulation or even graft to facilitate cardiopulmonary bypass. Past/Family/Social History Past Medical History HTN XOL DM DVT aortic dissection Past Surgical History aortic dissection repair L neck surgery (?flap for trauma) Family History NC Home Medications Discontinued Reported Medications Potassium Chloride (Klor-Con 10 Meq) 10 Meq Tabcr, 10 MEQ PO DAILY 02/13/09 Furosemide (Lasix) 40 Mg Tab, 40 MG PO DAILY 02/13/09 Metoprolol Tartrate 25 mg (Metoprolol Tartrate 25 mg) 25 Mg Tab, 25 MG PO BID 02/13/09 Coded Allergies: No Known Allergies (Verified , 02/13/09) Review of Systems Cardiovascular: DENIES: Chest pain Physical Exam Vitals/I&O Date Time Temp Pulse Resp B/P (MAP) Pulse Ox O2 Delivery O2 Flow Rate FiO2 05/30/17 11:57 98.3 76 18 136/65 (88) 99 05/30/17 08:42 99 21 05/30/17 08:00 98.3 69 18 123/64 (83) 100 05/30/17 03:57 98.6 74 18 124/57 (79) 100 05/30/17 00:50 74 16 139/83 (101) 100 05/29/17 23:00 98.6 76 18 183/99 (127) 99 05/29/17 22:15 05/29/17 18:26 88 18 174/90 (118) 99 Room Air 05/30/17 05/30/17 05/30/17 07:00 15:00 23:00 Intake Total 360 ml 400 ml Output Total 250 ml Balance 360 ml 150 ml Neuro: alert, oriented, no distress HEENT: NC/AT Neck: L neck surgical incisions Heart: reg rate Lungs: nonlabored Abdomen: NT Vascular: generous R femoral pulse and normal L femoral pulse skin intact over R groin and nontender to palpation Extremities: venous stasis changes B Laboratory Tests Test 05/29/17 18:02 05/29/17 20:30 05/30/17 02:00 05/30/17 05:22 Urine Color LIGHT-RED Urine Turbidity HAZY Urine pH 6.0 Urine Specific [place] 1.017 Urine Protein 300 Urine Glucose (UA) NEG Urine Ketones NEG Urine Occult Blood LARGE Urine Nitrite NEG Urine Bilirubin NEG Urine Urobilinogen LESS THAN 2.0 Urine Leukocyte Esterase MOD Urine RBC Urine WBC 83 Urine Amorphous Sediment RARE Urine Bacteria OCC Microscopic Urinalysis Comment CULTURE INDICATED Total Creatine Kinase 1333 1133 Creatine Kinase MB 9.1 7.6 Creatine Kinase MB % 0.7 0.7 Troponin I 0.48 0.46 White Blood Count 8.5 Red Blood Count 3.71 Hemoglobin 11.8 Hematocrit 33.8 Mean Corpuscular Volume 91.2 Mean Corpuscular Hemoglobin 31.9 Mean Corpuscular Hemoglobin Concent 35.0 Red Cell Distribution Width 14.0 Platelet Count 182 Mean Platelet Volume 8.1 Neutrophils (%) (Auto) 71.0 Lymphocytes (%) (Auto) 13.4 Monocytes (%) (Auto) 12.5 Eosinophils (%) (Auto) 2.5 Basophils (%) (Auto) 0.6 Neutrophils # (Auto) 6.0 Lymphocytes # (Auto) 1.1 Monocytes # (Auto) 1.1 Eosinophils # (Auto) 0.2 Basophils # (Auto) 0.1 CBC Comment DIFF FINAL Differential Comment Blood Urea Nitrogen 45 Creatinine 2.86 Random Glucose 121 Total Protein 5.8 Albumin 2.5 Calcium Level 7.8 Phosphorus Level 2.9 Magnesium Level 2.0 Alkaline Phosphatase 78 Aspartate Amino Transf (AST/SGOT) 59 Alanine Aminotransferase (ALT/SGPT) 22 Total Bilirubin 0.7 Sodium Level 141 Potassium Level 4.2 Chloride Level 109 Carbon Dioxide Level 23.8 Anion Gap 8 Estimat Glomerular Filtration Rate 26 Free Thyroxine 1.40 Thyroid Stimulating Hormone 3rd Gen 1.290 Triglycerides Level 102 Cholesterol Level 189 LDL Cholesterol 120 HDL Cholesterol 48.8 Cholesterol/HDL Ratio 3.87 Date/Time Source Procedure Growth Status 05/29/17 18:02 Urine Clean Catch Urine Culture - Preliminary NO GROWTH IN 24 HOURS. Resulted Last 48 hours Impressions Chest X-Ray 05/29/17 1443 Signed Impressions: Service Date/Time: Monday, May 29, 2017 15:07 - CONCLUSION: No acute disease. Kranthi Mcgrath MD Pelvis X-Ray 05/29/17 0000 Signed Impressions: Service Date/Time: Monday, May 29, 2017 20:53 - CONCLUSION: Chronic change. Nestor Sorensen MD Lower Extremity Ultrasound 05/29/17 0000 Signed Impressions: Service Date/Time: Monday, May 29, 2017 22:18 - CONCLUSION: 1. No DVT. 2. 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 This is seen at the anastomosis with a graft. There is color-flow at the orifice of the pseudoaneurysm. The vast majority of the pseudoaneurysm is thrombosed. 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 1. I would recommend a CT C/A/P through thighs to eval the dissection as up to 30% become aneurysmal. Ideally, this should be CTA but given ATN this is not possible. A NC CT is a good start and would chambers through groins 2. I will order ABIs. If perfusion ok, can have compression for venous stasis. Will follow. Adam Murphy MD [facility] tack maker [facility] - Heart and Vascular Surgery at [facility] [phone] Adam Murphy MD May 30, 2017 15:57
[2017-05-30] MEDS: cefTRIAXone INJ 1,000 MG in SODIUM CHLORIDE 0.9% INJ 100 ML IV SCH (18:10)
--- NOTE | 2017-05-30 18:29 | MB ---
cc: Armani Avery MD DATE: 05/30/2017 REASON FOR CONSULTATION: Elevated BUN and creatinine, for evaluation. HISTORY OF PRESENT ILLNESS: This is an 82-year-old male with a past medical history of hypertension, diabetes mellitus, hyperlipidemia, history of deep vein thrombosis, possible chronic kidney disease, came to the hospital with complaint of leg edema and history of a fall. I was called to see the patient because of elevated BUN and creatinine. The patient was found to have creatinine of 2.9 on admission and now it is 2.8. He previously had creatinine of 1.2. This was in 2008. The patient denies any known history of renal disease. He was seen by his primary care physician in February and according to him, he was never told that he has any kidney disease. The patient has some prostatic symptoms and he admits that he has some trouble passing the urine for the last 2-3 weeks. He denies any history of dysuria or hematuria, but he has dysuria and hematuria after they tried to put the Scanlon catheter here in the hospital. He has this swelling in the legs, according to him, for the last 2 years, and it has been improving. He fell down 2 days before the admission. Denies any loss of consciousness. According to him, he did not keep his balance and he fell down. He was complaining of some hip pain, but denies taking any nonsteroidal anti-inflammatory drugs at home. PAST MEDICAL HISTORY: Hypertension, diabetes mellitus, hyperlipidemia, possible chronic kidney disease. PAST SURGICAL HISTORY: Aortic dissection repair. REVIEW OF SYSTEMS: There is no history of fever. He has generalized weakness, feeling tired. No nausea, vomiting. No abdominal pain. No history of diarrhea. No shortness of breath. No chest pain. He has some dysuria and a small amount of blood came out after they tried to put the Scanlon catheter. At home, he did not have any of the symptoms in the urine, except that he has some difficulty in starting the urination and the stream was slow. SOCIAL HISTORY: There is no history of smoking. Occasionally, he drinks alcoholic beverages. FAMILY HISTORY: Positive for diabetes on mother's side. ALLERGIES: HE HAS NO KNOWN DRUG ALLERGIES. MEDICATIONS: Currently, he is on normal saline at 70 an hour, Danyelle-Colace 1 tablet b.i.d., Lasix 20 mg b.i.d., Norvasc 5 mg once a day, Flomax 0.4 mg daily, Lopressor 25 mg q. 12 hours, ceftriaxone 1 gm q. 24 hours, insulin as per sliding scale. PHYSICAL EXAMINATION: GENERAL: Patient is awake, alert. He is not in acute distress. VITAL SIGNS: His last blood pressure is 136/65. His blood pressure has been on the lower side, and when he came in here, the first reading was 212/112. HEENT: Pupils , nonicteric sclerae. Conjunctivae pale. NECK: Supple. JVD is not elevated. LUNGS: The patient has bilateral good air entry with scattered wheezing. HEART: S1, S2. Regular rhythm. ABDOMEN: Soft, lax, distended, nontender. Bowel sounds positive. EXTREMITIES: He has bilateral mild leg edema with some wrinkling of the skin and dryness and scaling in the skin in the lower legs. INVESTIGATIONS: WBC count is 8.5, hemoglobin 11.8, platelet count of 182, neutrophils 71%, eosinophil 2.5%. Sodium 142, potassium 4.2, chloride 109, bicarbonate 23.8, BUN 45, creatinine 2.8, glucose 121, calcium 7.8, phosphorus 2.9, AST is 59, ALT is 22, alkaline phosphatase is 78. Creatinine kinase is 1133. Total protein is 5.8 with albumin of 2.5, cholesterol 189. TSH is 1.29. INR 1.1. Urinalysis showing protein of 300. IMAGING STUDIES: The patient has ultrasound of the lower leg done, which shows no DVT and there is a 3.7 cm pseudoaneurysm in the right groin. Chest x-ray was done, which shows lung henrandez clear. Pelvic x-ray was done that showed some chronic changes. ASSESSMENT AND PLAN: 1. Acute kidney injury with possibility of chronic kidney disease. 2. Hypertension, uncontrolled. 3. Diabetes mellitus. 4. History of fall. 5. Aortic aneurysm. The patient has elevated BUN and creatinine and his CPK level is high. He possibly has an element of acute kidney injury, either because of the dehydration or possibility of rhabdomyolysis, and there must be an underlying chronic kidney disease, although he is not aware of it. He has significant proteinuria. I will send the serologies for any other secondary disease including BARTOLO and ANCA and also, I will get the 24-hour urine collection. I will discontinue the Lasix for the time being. Agree with continued IV fluid. Avoid any nephrotoxins and follow the urine output and the BUN and creatinine. I will also order the ultrasound of the kidneys. Thank you for the consultation, and I will follow the patient while he is in the hospital. MD MOHINDER Rincon/KWAME , 05:45 PM , 06:27 PM
[2017-05-30 22:09] LABS: HEMOGLOBIN A1C 4.5 % (4.3-6.0)
[2017-05-30] MEDS: cloNIDine HCL 0.1 MG TAB PO PRN (23:40)
[2017-05-31] VITALS (8 sets, daily range): BP systolic 127–163; BP diastolic 59–84; PULSE 66–84; RESP 16–18; TEMP 97.2–98.7; O2SAT 98–100
[2017-05-31] MEDS: INSULIN ASPART SUPPLEMENTAL SCALE SQ SCH ×4 (08:00→20:56)
[2017-05-31 08:03] LABS: AUTOMATED NEUTROPHIL # 4.1 TH/MM3 (1.8-7.7); BASOPHIL # 0.1 TH/MM3 (0-0.2); BASOPHIL % 0.9 % (0.0-2.0); EOSINOPHIL # 0.3 TH/MM3 (0-0.4); EOSINOPHIL % 5.1 % (0.0-4.0); HEMATOCRIT 29.9 % (39.0-51.0); HEMOGLOBIN 10.9 GM/DL (13.0-17.0); LYMPH % 22.3 % (9.0-44.0); LYMPHOCYTE # 1.5 TH/MM3 (1.0-4.8); MEAN CELL VOLUME 89.6 FL (80.0-100.0); MEAN CORPUSCULAR HEMOGLOBIN 32.7 PG (27.0-34.0); MEAN PLATELET VOLUME 8.4 FL (7.0-11.0); MONO % 11.7 % (0.0-8.0); MONOCYTE # 0.8 TH/MM3 (0-0.9); PLATELET COUNT 173 TH/MM3 (150-450); RED BLOOD COUNT 3.34 MIL/MM3 (4.50-5.90); WHITE BLOOD COUNT 6.8 TH/MM3 (4.0-11.0)
[2017-05-31 08:10] LABS: MEAN CORPUSCULAR HGB CONC 36.4 % (32.0-36.0)
[2017-05-31 08:39] LABS: ALBUMIN 2.5 GM/DL (3.4-5.0); AST (GOT) 44 U/L (15-37); BLOOD UREA NITROGEN 51 MG/DL (7-18); CALCIUM 7.8 MG/DL (8.5-10.1); CHLORIDE 106 MEQ/L (98-107); CREATININE 2.78 MG/DL (0.60-1.30); GLOMERULAR FILTRATION RATE 27 ML/MIN (>89); GLUCOSE,RANDOM 98 MG/DL (74-106); MAGNESIUM 2.1 MG/DL (1.5-2.5); SODIUM (NA) 137 MEQ/L (136-145)
[2017-05-31 08:40] LABS: ALT (GPT) 22 U/L (12-78); PHOSPHORUS 3.8 MG/DL (2.5-4.9)
[2017-05-31 08:42] LABS: ALKALINE PHOSPHATASE 76 U/L (45-117); TOTAL BILIRUBIN ADULT 0.5 MG/DL (0.2-1.0)
[2017-05-31 08:43] LABS: COMPLEMENT C3 101 MG/DL (90-180); COMPLEMENT C4 33 MG/DL (10-40)
[2017-05-31] MEDS: TAMSULOSIN HCL 0.4 MG CAP PO SCH (08:47)
[2017-05-31] MEDS: METOPROLOL TARTRATE 25 MG TAB PO SCH ×2 (08:47→20:53)
[2017-05-31] MEDS: DOCUSATE SODIUM 50 MG/SENNA 8.6 MG TAB PO SCH ×2 (08:47→20:53)
[2017-05-31] MEDS: amLODIPine BESYLATE 5 MG TAB PO SCH (08:47)
[2017-05-31] MEDS: HEPARIN SODIUM - SQ 10,000 UNITS/ML VIAL SQ SCH ×2 (08:47→20:53)
[2017-05-31] MEDS: SODIUM CHLORIDE 0.9% FLUSH 10 ML FLUSH IV FLUSH SCH ×2 (08:48→20:53)
--- NOTE | 2017-05-31 10:15 | HHI.NPPN ---
Subjective General Problems: Anemia Renal Failure: Chronic, Acute History of Present Illness This is an 82-year-old male with a past medical history of hypertension, diabetes mellitus, hyperlipidemia, history of deep vein thrombosis, possible chronic kidney disease, came to the hospital with complaint of leg edema and history of a fall. Nephrology was called to see the patient because of elevated BUN and creatinine. The patient was found to have creatinine of 2.9 on admission and now it is 2.8. He previously had creatinine of 1.2. This was in 2008. The patient denies any known history of renal disease. He was seen by his primary care physician in February and according to him, he was never told that he has any kidney disease. The patient has some prostatic symptoms and he admits that he has some trouble passing the urine for the last 2-3 weeks. He denies any history of dysuria or hematuria, but he has dysuria and hematuria after they tried to put the Scanlon catheter here in the hospital. He has this swelling in the legs, according to him, for the last 2 years,and it has been improving. He fell down 2 days before the admission. Denies any loss of consciousness. According to him, he did not keep his balance and he fell down. He was complaining of some hip pain, but denies taking any nonsteroidal anti- inflammatory drugs at home. Additional Remarks Patient is resting comfortably. Daughter at bedside. Patient denies any SOB. Lower extremity edema. Creatinine is improving. (Damaris Sommers) Review of Systems Respiratory Respiratory Remarks Denies any SOB (Damaris Sommers) Cardiovascular Cardiac: Edema Cardiac Remarks Denies any CP (Damaris Sommers) Gastrointestinal GI Remarks Denies any abdominal pain (Damaris Sommers) Genitourinary Genitourinary: Burning (Damaris Sommers) Objective Data Data Vital Signs Date Time Temp Pulse Resp B/P (MAP) Pulse Ox O2 Delivery O2 Flow Rate FiO2 05/31/17 04:20 98.4 84 18 162/81 (108) 98 05/30/17 23:50 97.9 86 20 184/86 (118) 100 05/30/17 20:40 80 166/90 (115) 05/30/17 20:23 21 05/30/17 19:45 97.5 78 20 151/81 (104) 94 05/30/17 18:55 82 05/30/17 16:50 97.9 72 18 142/75 (97) 97 05/30/17 11:57 98.3 76 18 136/65 (88) 99 (Damaris Sommers) -: 05/31/17 0715 05/31/17 0715 Imaging Last Impressions Chest X-Ray 05/29/17 1443 Signed Impressions: Service Date/Time: Monday, May 29, 2017 15:07 - CONCLUSION: No acute disease. Kranthi Mcgrath MD Pelvis X-Ray 05/29/17 0000 Signed Impressions: Service Date/Time: Monday, May 29, 2017 20:53 - CONCLUSION: Chronic change. Nestor Sorensen MD Lower Extremity Ultrasound 05/29/17 0000 Signed Impressions: Service Date/Time: Monday, May 29, 2017 22:18 - CONCLUSION: 1. No DVT. 2. 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 This is seen at the anastomosis with a graft. There is color-flow at the orifice of the pseudoaneurysm. The vast majority of the pseudoaneurysm is thrombosed. Nestor Sorensen MD (Damaris Sommers) Physical Exam General Appearance: No Acute Distress, Comfortable (Damaris Sommers) Pulmonary Resp Exam: Clear Bilaterally, Breath Sounds Equal, No Distress (Damaris Sommers) Cardiology CV Exam: Regular (Damaris Sommers) Gastrointestinal/Abdomen GI Exam: Soft, Non-Tender, Bowel Sounds Present (Damaris Sommers) Genitourinary Remarks Suprapubic tenderness on palpation (Damaris Sommers) Integumentary Skin Exam: Clear, Warm (Damaris Sommers) Extremeties Extremities Exam: Moderate Edema (Damaris Sommers) Neurologic Neuro Exam: Alert, Awake, Oriented (Damaris Sommers) Psychiatric Psych Exam: Appropriate Responses (Damaris Sommers) Assessment/Plan Discussed Condition With: Patient, Daughter Assessment Summary: ROBINSON/Acute Renal Failure Problem List: (1) ARF (acute renal failure) ICD Codes: N17.9 - Acute kidney failure, unspecified Status: Acute Plan: Acute Kidney injury either because of dehydration or possibility of rhabdomyolysis, and there must be an underlying chronic kidney disease, although he is not aware of it. Significant proteinuria. Creatinine has improved from 2.78 from 2.86 UOP over night at 1100 Plan; US of kidney pending\ HTN amlodipine increased Continue gentle hydration C3 and C4 are negative the rest of serology is pending. 24 urine collection ordered Avoid nephrotoxins Follow the urine output and the BUN and creatinine (2) HTN (hypertension) ICD Codes: I10 - Essential (primary) hypertension Status: Acute Plan: HTN and amlodipine increased. (Damaris Sommers) Problem List: (1) ARF (acute renal failure) ICD Codes: N17.9 - Acute kidney failure, unspecified Status: Acute Plan: Acute Kidney injury either because of dehydration or possibility of rhabdomyolysis, and there must be an underlying chronic kidney disease, although he is not aware of it. Significant proteinuria. Creatinine has improved from 2.78 from 2.86 UOP over night at 1100 Plan; US of kidney pending\ HTN amlodipine increased Continue gentle hydration C3 and C4 are negative the rest of serology is pending. 24 urine collection ordered Avoid nephrotoxins Follow the urine output and the BUN and creatinine. Patient seen and examined,agree with above. Has bilateral small and echogenic kidneys. Complements normal, other serology PND. Continue gentle Hydration. (2) HTN (hypertension) ICD Codes: I10 - Essential (primary) hypertension Status: Acute Plan: HTN and amlodipine increased. (Cale Avery MD) Problem Qualifiers (1) ARF (acute renal failure): Qualified Codes: N17.9 - Acute kidney failure, unspecified (2) HTN (hypertension): Qualified Codes: I10 - Essential (primary) hypertension Damaris Sommers May 31, 2017 10:15 Cale Avery MD May 31, 2017 15:23
--- NOTE | 2017-05-31 10:48 | RADRPT ---
EXAM DATE/TIME: 05/31/2017 08:16 [facility] COMPARISON: No previous studies available for comparison. INDICATIONS : Elevated BUN and creatinine. MEDICAL HISTORY : Hypertension. Arthritis. Neurologic problems. Clotting problems. PTSD. Musculoskeletal disorders. SURGICAL HISTORY : Abdominal aortic aneurysm repair. Cardiac surgery. Orthopedic surgery. ENCOUNTER: Initial ACUITY: 1 day PAIN SCORE: 4/10 LOCATION: Bilateral flank MEASUREMENTS: RIGHT KIDNEY: 8.4 x 4.0 x 3.8 cm LEFT KIDNEY: 8.5 x 4.1 x 3.6 cm FINDINGS: RIGHT KIDNEY: The right kidney is small and atrophic with diffuse cortical thinning and increased echogenicity. The re is a single large simple appearing cyst measuring 7.1 x 7.3 x 5.8 cm extending off the mid kidney. There is no solid mass or hydronephrosis. LEFT KIDNEY: The left kidney is small and atrophic with diffuse cortical thinning and increased echogenicity. A si ngle moderate cyst measuring 4.8 x 4 x 4.8 cm. There is no solid mass or hydronephrosis. BLADDER: Within normal limits given the degree of distension. CONCLUSION: 1. The kidneys are small and atrophic in appearance with cortical thinning and increased echogenicity characteristic of medical renal disease. 2. No hydronephrosis. 3. Bilateral cysts. Farhat Torres MD on May 31, 2017 at 10:44 Board Certified Radiologist. This report was verified electronically.
--- NOTE | 2017-05-31 10:58 | HHI.PR ---
Subjective Remarks 82-year-old male with a past medical history significant for hypertension, hyperlipidemia, borderline diabetes mellitus and history of DVT presents to the emergency department for evaluation of a fall. The patient complains of bilateral lower extremity edema for months and is noncompliant with his home medications. Patient denies any history of CHF. The patient reports that he was on the ground for 2-3 hours after his fall. He denies any loss of consciousness. He states he was trying to put on a sock when he lost his balance and fell onto his buttock. He complains of bilateral hip pain. He denies any head trauma. The patient states that he has had increasing fatigue and weakness over the past several months. He has not seen his doctor since February and has been noncompliant with all medication since that time. Patient denies fever/chills. Denies shortness of breath or chest pain. Denies nausea/vomiting/diarrhea. No lateralizing signs/symptoms. He is an extremely poor historian. 05-30 medications restarted checking UA DW RN AND PT NO CURRENT COMPLAINTS BREATHING BETTER NEEDS TO WORK WITH PT AND OT 05-31 found to have UTI STARTED ON ROCEPHIN SEEN BY VASCULAR AND RENAL NO NEW COMPLAINTS DW RN AND PT AND FAMILY STUDIES ORDERED STILL PENDING Objective Vitals Vital Signs Date Time Temp Pulse Resp B/P (MAP) Pulse Ox O2 Delivery O2 Flow Rate FiO2 05/31/17 10:31 72 05/31/17 04:20 98.4 84 18 162/81 (108) 98 05/30/17 23:50 97.9 86 20 184/86 (118) 100 05/30/17 20:40 80 166/90 (115) 05/30/17 20:23 21 05/30/17 19:45 97.5 78 20 151/81 (104) 94 05/30/17 18:55 82 05/30/17 16:50 97.9 72 18 142/75 (97) 97 05/30/17 11:57 98.3 76 18 136/65 (88) 99 I/O 05/30/17 05/30/17 05/30/17 05/31/17 05/31/17 05/31/17 07:00 15:00 23:00 07:00 15:00 23:00 Intake Total 360 ml 400 ml 100 ml 480 ml Output Total 250 ml 850 ml Balance 360 ml 150 ml 100 ml -370 ml Intake Oral 360 ml 400 ml 480 ml IV Total 100 ml Output Urine Total 250 ml 850 ml # Voids 3 # Bowel Movements 0 1 0 Result Diagram: 05/31/17 0715 05/31/17 0715 Other Results Laboratory Tests Test 05/29/17 14:50 05/29/17 18:02 05/29/17 20:30 05/30/17 02:00 White Blood Count 8.3 TH/MM3 8.5 TH/MM3 Red Blood Count 4.22 MIL/MM3 3.71 MIL/MM3 Hemoglobin 13.2 GM/DL 11.8 GM/DL Hematocrit 38.1 % 33.8 % Mean Corpuscular Volume 90.3 FL 91.2 FL Mean Corpuscular Hemoglobin 31.4 PG 31.9 PG Mean Corpuscular Hemoglobin Concent 34.8 % 35.0 % Red Cell Distribution Width 14.1 % 14.0 % Platelet Count 213 TH/MM3 182 TH/MM3 Mean Platelet Volume 8.6 FL 8.1 FL Neutrophils (%) (Auto) 78.9 % 71.0 % Lymphocytes (%) (Auto) 9.5 % 13.4 % Monocytes (%) (Auto) 10.2 % 12.5 % Eosinophils (%) (Auto) 0.7 % 2.5 % Basophils (%) (Auto) 0.7 % 0.6 % Neutrophils # (Auto) 6.6 TH/MM3 6.0 TH/MM3 Lymphocytes # (Auto) 0.8 TH/MM3 1.1 TH/MM3 Monocytes # (Auto) 0.9 TH/MM3 1.1 TH/MM3 Eosinophils # (Auto) 0.1 TH/MM3 0.2 TH/MM3 Basophils # (Auto) 0.1 TH/MM3 0.1 TH/MM3 CBC Comment DIFF FINAL DIFF FINAL Differential Comment Prothrombin Time 11.2 SEC Prothromb Time International Ratio 1.1 RATIO Activated Partial Thromboplast Time 30.9 SEC Blood Urea Nitrogen 46 MG/DL 45 MG/DL Creatinine 2.98 MG/DL 2.86 MG/DL Random Glucose 123 MG/DL 121 MG/DL Total Protein 7.2 GM/DL 5.8 GM/DL Albumin 3.2 GM/DL 2.5 GM/DL Calcium Level 8.6 MG/DL 7.8 MG/DL Magnesium Level 2.2 MG/DL 2.0 MG/DL Alkaline Phosphatase 92 U/L 78 U/L Aspartate Amino Transf (AST/SGOT) 83 U/L 59 U/L Alanine Aminotransferase (ALT/SGPT) 24 U/L 22 U/L Total Bilirubin 1.1 MG/DL 0.7 MG/DL Sodium Level 140 MEQ/L 141 MEQ/L Potassium Level 4.7 MEQ/L 4.2 MEQ/L Chloride Level 106 MEQ/L 109 MEQ/L Carbon Dioxide Level 23.8 MEQ/L 23.8 MEQ/L Anion Gap 10 MEQ/L 8 MEQ/L Estimat Glomerular Filtration Rate 25 ML/MIN 26 ML/MIN Hemoglobin A1c 4.4 % 4.5 % B-Type Natriuretic Peptide 623 PG/ML Urine Color LIGHT-RED Urine Turbidity HAZY Urine pH 6.0 Urine Specific [place] 1.017 Urine Protein 300 mg/dL Urine Glucose (UA) NEG mg/dL Urine Ketones NEG mg/dL Urine Occult Blood LARGE Urine Nitrite NEG Urine Bilirubin NEG Urine Urobilinogen LESS THAN 2.0 MG/DL Urine Leukocyte Esterase MOD Urine RBC /hpf Urine WBC 83 /hpf Urine Amorphous Sediment RARE Urine Bacteria OCC /hpf Microscopic Urinalysis Comment CULTURE INDICATED Total Creatine Kinase 1333 U/L 1133 U/L Creatine Kinase MB 9.1 NG/ML 7.6 NG/ML Creatine Kinase MB % 0.7 % 0.7 % Troponin I 0.48 NG/ML 0.46 NG/ML Phosphorus Level 2.9 MG/DL Free Thyroxine 1.40 NG/DL Thyroid Stimulating Hormone 3rd Gen 1.290 uIU/ML Test 05/30/17 05:22 05/31/17 07:15 Triglycerides Level 102 MG/DL Cholesterol Level 189 MG/DL LDL Cholesterol 120 MG/DL HDL Cholesterol 48.8 MG/DL Cholesterol/HDL Ratio 3.87 RATIO White Blood Count 6.8 TH/MM3 Red Blood Count 3.34 MIL/MM3 Hemoglobin 10.9 GM/DL Hematocrit 29.9 % Mean Corpuscular Volume 89.6 FL Mean Corpuscular Hemoglobin 32.7 PG Mean Corpuscular Hemoglobin Concent 36.4 % Red Cell Distribution Width 14.0 % Platelet Count 173 TH/MM3 Mean Platelet Volume 8.4 FL Neutrophils (%) (Auto) 60.0 % Lymphocytes (%) (Auto) 22.3 % Monocytes (%) (Auto) 11.7 % Eosinophils (%) (Auto) 5.1 % Basophils (%) (Auto) 0.9 % Neutrophils # (Auto) 4.1 TH/MM3 Lymphocytes # (Auto) 1.5 TH/MM3 Monocytes # (Auto) 0.8 TH/MM3 Eosinophils # (Auto) 0.3 TH/MM3 Basophils # (Auto) 0.1 TH/MM3 CBC Comment AUTO DIFF Differential Comment AUTO DIFF CONFIRMED Blood Urea Nitrogen 51 MG/DL Creatinine 2.78 MG/DL Random Glucose 98 MG/DL Total Protein 6.0 GM/DL Albumin 2.5 GM/DL Calcium Level 7.8 MG/DL Phosphorus Level 3.8 MG/DL Magnesium Level 2.1 MG/DL Alkaline Phosphatase 76 U/L Aspartate Amino Transf (AST/SGOT) 44 U/L Alanine Aminotransferase (ALT/SGPT) 22 U/L Total Bilirubin 0.5 MG/DL Sodium Level 137 MEQ/L Potassium Level 4.5 MEQ/L Chloride Level 106 MEQ/L Carbon Dioxide Level 22.0 MEQ/L Anion Gap 9 MEQ/L Estimat Glomerular Filtration Rate 27 ML/MIN Complement C3 101 MG/DL Complement C4 33 MG/DL Imaging Last Impressions Renal Ultrasound 05/31/17 0600 Signed Impressions: Service Date/Time: Wednesday, May 31, 2017 08:16 - CONCLUSION: 1. The kidneys are small and atrophic in appearance with cortical thinning and increased echogenicity characteristic of medical renal disease. 2. No hydronephrosis. 3. Bilateral cysts. Farhat Torres MD Chest X-Ray 05/29/17 1443 Signed Impressions: Service Date/Time: Monday, May 29, 2017 15:07 - CONCLUSION: No acute disease. Kranthi Mcgrath MD Pelvis X-Ray 05/29/17 0000 Signed Impressions: Service Date/Time: Monday, May 29, 2017 20:53 - CONCLUSION: Chronic change. Nestor Sorensen MD Lower Extremity Ultrasound 05/29/17 0000 Signed Impressions: Service Date/Time: Monday, May 29, 2017 22:18 - CONCLUSION: 1. No DVT. 2. 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 This is seen at the anastomosis with a graft. There is color-flow at the orifice of the pseudoaneurysm. The vast majority of the pseudoaneurysm is thrombosed. Nestor Sorensen MD Objective Remarks GENERAL: Cecilia male lying in bed SKIN: Dry, scaly skin covering bilateral lower extremities with chronic skin changes present MIDLINE INCISION FROM CHEST TO UMBILICUS OLD HEALED HEAD: Atraumatic. Normocephalic. No temporal or scalp tenderness. EYES: Pupils equal round and reactive. Extraocular motions intact. No scleral icterus. No injection or drainage. ENT: Nose without bleeding, purulent drainage or septal hematoma. Throat without erythema, tonsillar hypertrophy or exudate. Uvula midline. Airway patent. NECK: Trachea midline. No JVD or lymphadenopathy. Supple, nontender, no meningeal signs. CARDIOVASCULAR: Regular rate and rhythm without murmurs, gallops, or rubs. RESPIRATORY: Clear to auscultation. Breath sounds equal bilaterally. No wheezes , rales, or rhonchi. GASTROINTESTINAL: Abdomen soft, non-tender, nondistended. No hepato-splenomegaly , or palpable masses. No guarding. MUSCULOSKELETAL: 3+ pitting edema in the bilateral lower extremities BRAWNY EDEMA BL LE NEUROLOGICAL: Awake and alert. Cranial nerves II through XII intact. Motor and sensory grossly within normal limits. Normal speech. INSIGHT AND JUDGEMENT ARE GOOD MOOD AND BEHAVIOR ARE APPROPRIATE Medications and IVs Current Medications Sodium Chloride (NS Flush) 2 ml UNSCH PRN IVF FLUSH AFTER USING IV ACCESS; Start 05/29/17 at 14:45; Stop 05/29/17 at 18:47; Status DC Metoprolol Tartrate (Lopressor Inj) 5 mg ONCE ONCE IV PUSH Last administered on 05/29/17at 15:11; Start 05/29/17 at 15:00; Stop 05/29/17 at 15:01; Status DC Dextrose (D50w (Vial) Inj) 50 ml UNSCH PRN IV PUSH HYPOGLYCEMIA-SEE COMMENTS; Start 05/29/17 at 18:30 Glucagon (Glucagon Inj) 1 mg UNSCH PRN OTHER HYPOGLYCEMIA-SEE COMMENTS; Start 05/29/17 at 18:30 Insulin Aspart (NovoLOG SUPPLEMENTAL SCALE) 1 ACHS SLIDING SCALE SQ ; Start at 21:00 Clonidine (Catapres) 0.1 mg Q4H PRN PO SBP>160, DBP>90 Last administered on at 23:40; Start 05/29/17 at 18:30 Metoprolol Tartrate (Lopressor) 25 mg Q12HR PO Last administered on 05/31/17at 08:47; Start 05/29/17 at 21:00 Furosemide (Lasix) 40 mg DAILY PO ; Start 05/29/17 at 18:30; Stop 05/29/17 at 20 :29; Status DC Amlodipine Besylate (Norvasc) 5 mg ONCE ONCE PO Last administered on at 20:32; Start 05/29/17 at 18:30; Stop 05/29/17 at 18:48; Status DC Amlodipine Besylate (Norvasc) 5 mg DAILY PO Last administered on 05/31/17at 08: 47; Start 05/30/17 at 09:00; Stop 05/31/17 at 10:13; Status DC Tamsulosin HCl (Flomax) 0.4 mg DAILY PO Last administered on 05/31/17at 08:47; Start 05/29/17 at 19:30 Sodium Chloride (NS Flush) 2 ml UNSCH PRN IV FLUSH FLUSH AFTER USING IV ACCESS ; Start 05/29/17 at 18:30 Sodium Chloride (NS Flush) 2 ml BID IV FLUSH Last administered on 05/31/17at 08: 48; Start 05/29/17 at 21:00 Naloxone HCl (Narcan Inj) 0.4 mg UNSCH PRN IV PUSH SEE LABEL COMMENTS; Start at 18:30 Senna/Docusate Sodium (Danyelle-Colace) 1 tab BID PO ; Start 05/29/17 at 21:00; Stop 05/29/17 at 21:00; Status DC Magnesium Hydroxide (Milk Of Magnesia Liq) 30 ml Q12H PRN PO Mild constipation ; Start 05/29/17 at 18:30 Sennosides (Senokot) 17.2 mg Q12H PRN PO Moderate constipation; Start 05/29/17 at 18:30; Stop 05/29/17 at 18:50; Status DC Bisacodyl (Dulcolax Supp) 10 mg DAILY PRN RECTAL SEVERE CONSITIPATION; Start at 18:30 Lactulose (Lactulose Liq) 30 ml DAILY PRN PO SEVERE CONSITIPATION; Start at 18:30; Stop 05/29/17 at 18:50; Status DC Acetaminophen (Tylenol) 650 mg Q4H PRN PO TEMP > 100.4; Start 05/29/17 at 18:30 Ondansetron HCl (Zofran Inj) 4 mg Q6H PRN IVP NAUSEA OR VOMITING; Start at 18:30 Prochlorperazine (Compazine Supp) 25 mg Q12H PRN RECTAL NAUSEA OR VOMITING; Start 05/29/17 at 18:30 Heparin Sodium (Porcine) (Heparin Inj) 5,000 units Q12H SQ Last administered on 05/31/17at 08:47; Start 05/29/17 at 20:00 Acetaminophen (Tylenol) 650 mg Q6H PRN PO PAIN SCALE 1 TO 2; Start 05/29/17 at 18:30 Oxycodone/ Acetaminophen (Percocet 5-325 Mg) 1 tab Q6H PRN PO PAIN SCALE 3 TO 5; Start 05/29/17 at 18:30 Oxycodone/ Acetaminophen (Percocet 10-325 Mg) 1 tab Q6H PRN PO PAIN SCALE 6 TO 10; Start 05/29/17 at 18:30 Morphine Sulfate (Morphine Inj) 2 mg Q3H PRN IV PUSH Pain 3-5; if unable to take PO; Start 05/29/17 at 18:30 Morphine Sulfate (Morphine Inj) 4 mg Q3H PRN IV PUSH Pain 6-10;if unable to take PO; Start 05/29/17 at 19:15 Naloxone HCl (Narcan Inj) 0.4 mg UNSCH PRN IV PUSH SEE LABEL COMMENTS; Start at 18:30; Stop 05/29/17 at 18:50; Status DC Senna/Docusate Sodium (Danyelle-Colace) 1 tab BID PO Last administered on at 08:47; Start 05/29/17 at 21:00 Magnesium Hydroxide (Milk Of Magnesia Liq) 30 ml Q12H PRN PO Mild constipation ; Start 05/29/17 at 18:30; Stop 05/29/17 at 18:50; Status DC Sennosides (Senokot) 17.2 mg Q12H PRN PO Moderate constipation; Start 05/29/17 at 18:30 Bisacodyl (Dulcolax Supp) 10 mg DAILY PRN RECTAL SEVERE CONSITIPATION; Start at 18:30; Stop 05/29/17 at 19:03; Status DC Lactulose (Lactulose Liq) 30 ml DAILY PRN PO SEVERE CONSITIPATION; Start at 18:30 Sodium Chloride 1,000 ml @ 70 mls/hr [id number] IV Last administered on at 18:35; Start 05/29/17 at 20:30 Furosemide (Lasix Inj) 20 mg BID@09,18 IV PUSH Last administered on 05/30/17at 08:45; Start 05/30/17 at 09:00; Stop 05/30/17 at 17:47; Status DC Ceftriaxone Sodium 1000 mg/ Sodium Chloride 100 ml @ 200 mls/hr Q24H IV Last administered on 05/30/17at 18:10; Start 05/30/17 at 17:00 Amlodipine Besylate (Norvasc) 10 mg DAILY PO ; Start 06/01/17 at 09:00 A/P Assessment and Plan 1. Fall Patient suffered a mechanical fall Complaining of bilateral hip pain Pelvic x-ray pending PT AND OT 2. Acute kidney injury- SUSPECT CHRONIC KIDNEY DISEASE DUE TO RENAL ULTRASOUND SUGGESTING MEDICAL RENAL DISEASE BUN/creatinine 46/2.98 Baseline unknown Concern for rhabdo given fall, CK pending Gentle IV fluid hydration given lower extremity edema Monitor renal function Consider nephrology consult if renal function does not improve 3. Bilateral lower extremity edema Patient with history of DVT; bilateral ultrasound pending BMP 623, echo pending LASIX BEING HELD Chest x-ray with no signs of volume overload, personally reviewed ACS rule out pending CONSULT VASCULAR REGARDING US OF RIGHT GROIN 4. Hypertension/hyperlipidemia Metoprolol with clonidine when necessary Lipid profile pending MEDS INCREASED FOR HYPERTENSION- NORVASC 5. ? Diabetes mellitus A1c pending- NORMAL SUSPECT NOT A DIABETIC Sliding scale insulin DC Monitor blood glucose DC FEN Renal diet NS at 70 cc/hr Electrolytes: monitor and replete prn Heparin UTI- ROCEPHIN 1 GRAM DAILY Discharge Planning PENDING IMPROVEMENT IN ACTIVITY AND OR KIDNEY FUNCTIONS AM LABS Hiro Tom DO May 31, 2017 10:58
--- NOTE | 2017-05-31 11:32 | EKG ---
Date Performed: 05/29/2017 Time Performed: 21:34:36 PTAGE: 82 years EKG: Sinus rhythm WITH OCCASIONAL VENTRICULAR PREMATURE COMPLEXES POSSIBLE LEFT ATRIAL ENLARGEMENT MARKED LEFT AXIS DE VIATION INCOMPLETE RIGHT BUNDLE BRANCH BLOCK POSSIBLE LEFT VENTRICULAR HYPERTROPHY ST DEVIATION AND M ODERATE T-WAVE ABNORMALITY, CONSIDER LATERAL ISCHEMIA ABNORMAL ECG PREVIOUS TRACING : 05/29/2017 15.16 Since the previous tracing, no significant change noted DOCTOR: Rolan Ramirez Interpretating Date/Time 05/31/2017 11:28:08
--- NOTE | 2017-05-31 13:48 | RADRPT ---
EXAM DATE/TIME: 05/30/2017 00:00 [facility] COMPARISON: US LEG BILATERAL VENOUS DOPPLER, May 29, 2017, 22:18. INDICATIONS : Bilateral leg swelling. Right femoral graft. Right groin pseudoaneurysm TECHNIQUE: Four-cuff ankle and brachial pressures were obtained. Pulse cuff waveform tracings of the ankles were recorded, and ankle-brachial indices were calculated. PRESSURES (mmHg): Brachial (arm): Right 115 Left IV SITE Ankle: Right 135 Left 105 KATE: Right 1.17 Left 0.91 TBI: Right 0.73 Left 0.68 PULSED CUFF WAVEFORMS: Demonstrate normal amplitude bilaterally. CONCLUSION: Unremarkable ankle brachial indices. No evidence of significant arterial vascular insufficiency. Jacinto Phillips MD on May 31, 2017 at 13:44 Board Certified Radiologist. This report was verified electronically.
[2017-05-31] MEDS: cefTRIAXone INJ 1,000 MG in SODIUM CHLORIDE 0.9% INJ 100 ML IV SCH (17:58)
[2017-05-31] MEDS: SODIUM CHLOR 0.9% 1000 ML INJ 1,000 ML IV SCH (17:59)
[2017-06-01] VITALS (7 sets, daily range): BP systolic 128–192; BP diastolic 59–91; PULSE 58–98; RESP 16–18; TEMP 97.7–98.6; O2SAT 96–99
[2017-06-01] MEDS: cloNIDine HCL 0.1 MG TAB PO PRN (01:18)
[2017-06-01] MEDS: SODIUM CHLOR 0.9% 1000 ML INJ 1,000 ML IV SCH ×2 (05:42→20:00)
[2017-06-01 07:21] LABS: AUTOMATED NEUTROPHIL # 3.5 TH/MM3 (1.8-7.7); BASOPHIL # 0.1 TH/MM3 (0-0.2); BASOPHIL % 0.9 % (0.0-2.0); EOSINOPHIL # 0.4 TH/MM3 (0-0.4); EOSINOPHIL % 6.3 % (0.0-4.0); HEMATOCRIT 30.7 % (39.0-51.0); HEMOGLOBIN 10.8 GM/DL (13.0-17.0); LYMPH % 21.8 % (9.0-44.0); LYMPHOCYTE # 1.3 TH/MM3 (1.0-4.8); MEAN CELL VOLUME 90.6 FL (80.0-100.0); MEAN CORPUSCULAR HEMOGLOBIN 31.9 PG (27.0-34.0); MEAN CORPUSCULAR HGB CONC 35.3 % (32.0-36.0); MEAN PLATELET VOLUME 8.6 FL (7.0-11.0); MONO % 13.1 % (0.0-8.0); MONOCYTE # 0.8 TH/MM3 (0-0.9); NEUT % 57.9 % (16.0-70.0); PLATELET COUNT 173 TH/MM3 (150-450); RED BLOOD COUNT 3.39 MIL/MM3 (4.50-5.90); RED CELL DISTRIBUTION WIDTH 13.9 % (11.6-17.2)
[2017-06-01 07:43] LABS: ALBUMIN 2.5 GM/DL (3.4-5.0); ALT (GPT) 20 U/L (12-78); AST (GOT) 30 U/L (15-37); BICARBONATE 21.3 MEQ/L (21.0-32.0); BLOOD UREA NITROGEN 49 MG/DL (7-18); CALCIUM 7.7 MG/DL (8.5-10.1); CHLORIDE 108 MEQ/L (98-107); GLOMERULAR FILTRATION RATE 30 ML/MIN (>89); GLUCOSE,RANDOM 87 MG/DL (74-106); PHOSPHORUS 3.4 MG/DL (2.5-4.9); SODIUM (NA) 139 MEQ/L (136-145)
[2017-06-01 07:45] LABS: ALKALINE PHOSPHATASE 74 U/L (45-117); TOTAL BILIRUBIN ADULT 0.4 MG/DL (0.2-1.0); TOTAL PROTEIN 5.8 GM/DL (6.4-8.2)
[2017-06-01] MEDS: INSULIN ASPART SUPPLEMENTAL SCALE SQ SCH ×4 (08:00→20:23)
[2017-06-01] MEDS: HEPARIN SODIUM - SQ 10,000 UNITS/ML VIAL SQ SCH ×2 (08:27→20:31)
[2017-06-01] MEDS: METOPROLOL TARTRATE 25 MG TAB PO SCH ×2 (08:28→20:32)
[2017-06-01] MEDS: TAMSULOSIN HCL 0.4 MG CAP PO SCH (08:28)
[2017-06-01] MEDS: DOCUSATE SODIUM 50 MG/SENNA 8.6 MG TAB PO SCH ×2 (08:29→20:32)
[2017-06-01] MEDS: SODIUM CHLORIDE 0.9% FLUSH 10 ML FLUSH IV FLUSH SCH ×2 (08:29→20:32)
--- NOTE | 2017-06-01 09:50 | HHI.PR ---
Subjective Remarks 82-year-old male with a past medical history significant for hypertension, hyperlipidemia, borderline diabetes mellitus and history of DVT presents to the emergency department for evaluation of a fall. The patient complains of bilateral lower extremity edema for months and is noncompliant with his home medications. Patient denies any history of CHF. The patient reports that he was on the ground for 2-3 hours after his fall. He denies any loss of consciousness. He states he was trying to put on a sock when he lost his balance and fell onto his buttock. He complains of bilateral hip pain. He denies any head trauma. The patient states that he has had increasing fatigue and weakness over the past several months. He has not seen his doctor since February and has been noncompliant with all medication since that time. Patient denies fever/chills. Denies shortness of breath or chest pain. Denies nausea/vomiting/diarrhea. No lateralizing signs/symptoms. He is an extremely poor historian. 05-30 medications restarted checking UA DW RN AND PT NO CURRENT COMPLAINTS BREATHING BETTER NEEDS TO WORK WITH PT AND OT 05-31 found to have UTI STARTED ON ROCEPHIN SEEN BY VASCULAR AND RENAL NO NEW COMPLAINTS DW RN AND PT AND FAMILY STUDIES ORDERED STILL PENDING 06-01 CONTINUE ON ROCEPHIN KATE ARE STABLE CONTINUE 24 HOUR URINE DC HOPEFULLY IN NEXT 24- 48 HOURS DW RN AND PT AND FAMILY AND RENAL AND CASE MANAGEMENT Objective Vitals Vital Signs Date Time Temp Pulse Resp B/P (MAP) Pulse Ox O2 Delivery O2 Flow Rate FiO2 06/01/17 04:00 97.7 69 18 158/81 (106) 99 06/01/17 03:51 58 06/01/17 00:00 70 18 192/91 (124) 96 05/31/17 23:52 71 05/31/17 19:53 67 05/31/17 19:30 98.2 74 18 163/84 (110) 100 05/31/17 17:49 21 05/31/17 16:00 98.0 68 16 149/79 (102) 99 05/31/17 12:00 97.2 66 16 128/69 (88) 100 05/31/17 10:31 72 I/O 05/31/17 05/31/17 05/31/17 06/01/17 06/01/17 06/01/17 07:00 15:00 23:00 07:00 15:00 23:00 Intake Total 480 ml 1465 ml 480 ml Output Total 850 ml 800 ml 200 ml Balance -370 ml 665 ml 280 ml Intake Oral 480 ml 600 ml 480 ml IV Total 865 ml Output Urine Total 850 ml 800 ml 200 ml # Bowel Movements 0 0 Result Diagram: 06/01/17 0626 06/01/17 0626 Other Results Laboratory Tests Test 05/29/17 14:50 05/29/17 18:02 05/29/17 20:30 05/30/17 02:00 White Blood Count 8.3 TH/MM3 8.5 TH/MM3 Red Blood Count 4.22 MIL/MM3 3.71 MIL/MM3 Hemoglobin 13.2 GM/DL 11.8 GM/DL Hematocrit 38.1 % 33.8 % Mean Corpuscular Volume 90.3 FL 91.2 FL Mean Corpuscular Hemoglobin 31.4 PG 31.9 PG Mean Corpuscular Hemoglobin Concent 34.8 % 35.0 % Red Cell Distribution Width 14.1 % 14.0 % Platelet Count 213 TH/MM3 182 TH/MM3 Mean Platelet Volume 8.6 FL 8.1 FL Neutrophils (%) (Auto) 78.9 % 71.0 % Lymphocytes (%) (Auto) 9.5 % 13.4 % Monocytes (%) (Auto) 10.2 % 12.5 % Eosinophils (%) (Auto) 0.7 % 2.5 % Basophils (%) (Auto) 0.7 % 0.6 % Neutrophils # (Auto) 6.6 TH/MM3 6.0 TH/MM3 Lymphocytes # (Auto) 0.8 TH/MM3 1.1 TH/MM3 Monocytes # (Auto) 0.9 TH/MM3 1.1 TH/MM3 Eosinophils # (Auto) 0.1 TH/MM3 0.2 TH/MM3 Basophils # (Auto) 0.1 TH/MM3 0.1 TH/MM3 CBC Comment DIFF FINAL DIFF FINAL Differential Comment Prothrombin Time 11.2 SEC Prothromb Time International Ratio 1.1 RATIO Activated Partial Thromboplast Time 30.9 SEC Blood Urea Nitrogen 46 MG/DL 45 MG/DL Creatinine 2.98 MG/DL 2.86 MG/DL Random Glucose 123 MG/DL 121 MG/DL Total Protein 7.2 GM/DL 5.8 GM/DL Albumin 3.2 GM/DL 2.5 GM/DL Calcium Level 8.6 MG/DL 7.8 MG/DL Magnesium Level 2.2 MG/DL 2.0 MG/DL Alkaline Phosphatase 92 U/L 78 U/L Aspartate Amino Transf (AST/SGOT) 83 U/L 59 U/L Alanine Aminotransferase (ALT/SGPT) 24 U/L 22 U/L Total Bilirubin 1.1 MG/DL 0.7 MG/DL Sodium Level 140 MEQ/L 141 MEQ/L Potassium Level 4.7 MEQ/L 4.2 MEQ/L Chloride Level 106 MEQ/L 109 MEQ/L Carbon Dioxide Level 23.8 MEQ/L 23.8 MEQ/L Anion Gap 10 MEQ/L 8 MEQ/L Estimat Glomerular Filtration Rate 25 ML/MIN 26 ML/MIN Hemoglobin A1c 4.4 % 4.5 % B-Type Natriuretic Peptide 623 PG/ML Urine Color LIGHT-RED Urine Turbidity HAZY Urine pH 6.0 Urine Specific [place] 1.017 Urine Protein 300 mg/dL Urine Glucose (UA) NEG mg/dL Urine Ketones NEG mg/dL Urine Occult Blood LARGE Urine Nitrite NEG Urine Bilirubin NEG Urine Urobilinogen LESS THAN 2.0 MG/DL Urine Leukocyte Esterase MOD Urine RBC /hpf Urine WBC 83 /hpf Urine Amorphous Sediment RARE Urine Bacteria OCC /hpf Microscopic Urinalysis Comment CULTURE INDICATED Total Creatine Kinase 1333 U/L 1133 U/L Creatine Kinase MB 9.1 NG/ML 7.6 NG/ML Creatine Kinase MB % 0.7 % 0.7 % Troponin I 0.48 NG/ML 0.46 NG/ML Phosphorus Level 2.9 MG/DL Free Thyroxine 1.40 NG/DL Thyroid Stimulating Hormone 3rd Gen 1.290 uIU/ML Test 05/30/17 05:22 05/31/17 07:15 06/01/17 06:26 Triglycerides Level 102 MG/DL Cholesterol Level 189 MG/DL LDL Cholesterol 120 MG/DL HDL Cholesterol 48.8 MG/DL Cholesterol/HDL Ratio 3.87 RATIO White Blood Count 6.8 TH/MM3 6.0 TH/MM3 Red Blood Count 3.34 MIL/MM3 3.39 MIL/MM3 Hemoglobin 10.9 GM/DL 10.8 GM/DL Hematocrit 29.9 % 30.7 % Mean Corpuscular Volume 89.6 FL 90.6 FL Mean Corpuscular Hemoglobin 32.7 PG 31.9 PG Mean Corpuscular Hemoglobin Concent 36.4 % 35.3 % Red Cell Distribution Width 14.0 % 13.9 % Platelet Count 173 TH/MM3 173 TH/MM3 Mean Platelet Volume 8.4 FL 8.6 FL Neutrophils (%) (Auto) 60.0 % 57.9 % Lymphocytes (%) (Auto) 22.3 % 21.8 % Monocytes (%) (Auto) 11.7 % 13.1 % Eosinophils (%) (Auto) 5.1 % 6.3 % Basophils (%) (Auto) 0.9 % 0.9 % Neutrophils # (Auto) 4.1 TH/MM3 3.5 TH/MM3 Lymphocytes # (Auto) 1.5 TH/MM3 1.3 TH/MM3 Monocytes # (Auto) 0.8 TH/MM3 0.8 TH/MM3 Eosinophils # (Auto) 0.3 TH/MM3 0.4 TH/MM3 Basophils # (Auto) 0.1 TH/MM3 0.1 TH/MM3 CBC Comment AUTO DIFF DIFF FINAL Differential Comment AUTO DIFF CONFIRMED Blood Urea Nitrogen 51 MG/DL 49 MG/DL Creatinine 2.78 MG/DL 2.50 MG/DL Random Glucose 98 MG/DL 87 MG/DL Total Protein 6.0 GM/DL 5.8 GM/DL Albumin 2.5 GM/DL 2.5 GM/DL Calcium Level 7.8 MG/DL 7.7 MG/DL Phosphorus Level 3.8 MG/DL 3.4 MG/DL Magnesium Level 2.1 MG/DL 2.0 MG/DL Alkaline Phosphatase 76 U/L 74 U/L Aspartate Amino Transf (AST/SGOT) 44 U/L 30 U/L Alanine Aminotransferase (ALT/SGPT) 22 U/L 20 U/L Total Bilirubin 0.5 MG/DL 0.4 MG/DL Sodium Level 137 MEQ/L 139 MEQ/L Potassium Level 4.5 MEQ/L 4.3 MEQ/L Chloride Level 106 MEQ/L 108 MEQ/L Carbon Dioxide Level 22.0 MEQ/L 21.3 MEQ/L Anion Gap 9 MEQ/L 10 MEQ/L Estimat Glomerular Filtration Rate 27 ML/MIN 30 ML/MIN Anti-Nuclear Antibody Screen NEG Complement C3 101 MG/DL Complement C4 33 MG/DL Imaging Last Impressions Renal Ultrasound 05/31/17 0600 Signed Impressions: Service Date/Time: Wednesday, May 31, 2017 08:16 - CONCLUSION: 1. The kidneys are small and atrophic in appearance with cortical thinning and increased echogenicity characteristic of medical renal disease. 2. No hydronephrosis. 3. Bilateral cysts. Farhat Torres MD Chest X-Ray 05/29/17 1443 Signed Impressions: Service Date/Time: Monday, May 29, 2017 15:07 - CONCLUSION: No acute disease. Kranthi Mcgrath MD Pelvis X-Ray 05/29/17 0000 Signed Impressions: Service Date/Time: Monday, May 29, 2017 20:53 - CONCLUSION: Chronic change. Nestor Sorensen MD Lower Extremity Ultrasound 05/29/17 0000 Signed Impressions: Service Date/Time: Monday, May 29, 2017 22:18 - CONCLUSION: 1. No DVT. 2. 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 This is seen at the anastomosis with a graft. There is color-flow at the orifice of the pseudoaneurysm. The vast majority of the pseudoaneurysm is thrombosed. Nestor Sorensen MD Objective Remarks GENERAL: Cecilia male lying in bed SKIN: Dry, scaly skin covering bilateral lower extremities with chronic skin changes present MIDLINE INCISION FROM CHEST TO UMBILICUS OLD HEALED HEAD: Atraumatic. Normocephalic. No temporal or scalp tenderness. EYES: Pupils equal round and reactive. Extraocular motions intact. No scleral icterus. No injection or drainage. ENT: Nose without bleeding, purulent drainage or septal hematoma. Throat without erythema, tonsillar hypertrophy or exudate. Uvula midline. Airway patent. NECK: Trachea midline. No JVD or lymphadenopathy. Supple, nontender, no meningeal signs. CARDIOVASCULAR: Regular rate and rhythm without murmurs, gallops, or rubs. RESPIRATORY: Clear to auscultation. Breath sounds equal bilaterally. No wheezes , rales, or rhonchi. GASTROINTESTINAL: Abdomen soft, non-tender, nondistended. No hepato-splenomegaly , or palpable masses. No guarding. MUSCULOSKELETAL: 2+ pitting edema in the bilateral lower extremities BRAWNY EDEMA BL LE NEUROLOGICAL: Awake and alert. Cranial nerves II through XII intact. Motor and sensory grossly within normal limits. Normal speech. INSIGHT AND JUDGEMENT ARE GOOD MOOD AND BEHAVIOR ARE APPROPRIATE Medications and IVs Current Medications Sodium Chloride (NS Flush) 2 ml UNSCH PRN IVF FLUSH AFTER USING IV ACCESS; Start 05/29/17 at 14:45; Stop 05/29/17 at 18:47; Status DC Metoprolol Tartrate (Lopressor Inj) 5 mg ONCE ONCE IV PUSH Last administered on 05/29/17at 15:11; Start 05/29/17 at 15:00; Stop 05/29/17 at 15:01; Status DC Dextrose (D50w (Vial) Inj) 50 ml UNSCH PRN IV PUSH HYPOGLYCEMIA-SEE COMMENTS; Start 05/29/17 at 18:30 Glucagon (Glucagon Inj) 1 mg UNSCH PRN OTHER HYPOGLYCEMIA-SEE COMMENTS; Start 05/29/17 at 18:30 Insulin Aspart (NovoLOG SUPPLEMENTAL SCALE) 1 ACHS SLIDING SCALE SQ ; Start at 21:00 Clonidine (Catapres) 0.1 mg Q4H PRN PO SBP>160, DBP>90 Last administered on at 01:18; Start 05/29/17 at 18:30 Metoprolol Tartrate (Lopressor) 25 mg Q12HR PO Last administered on 06/01/17at 08:28; Start 05/29/17 at 21:00 Furosemide (Lasix) 40 mg DAILY PO ; Start 05/29/17 at 18:30; Stop 05/29/17 at 20 :29; Status DC Amlodipine Besylate (Norvasc) 5 mg ONCE ONCE PO Last administered on at 20:32; Start 05/29/17 at 18:30; Stop 05/29/17 at 18:48; Status DC Amlodipine Besylate (Norvasc) 5 mg DAILY PO Last administered on 05/31/17at 08: 47; Start 05/30/17 at 09:00; Stop 05/31/17 at 10:13; Status DC Tamsulosin HCl (Flomax) 0.4 mg DAILY PO Last administered on 06/01/17at 08:28; Start 05/29/17 at 19:30 Sodium Chloride (NS Flush) 2 ml UNSCH PRN IV FLUSH FLUSH AFTER USING IV ACCESS ; Start 05/29/17 at 18:30 Sodium Chloride (NS Flush) 2 ml BID IV FLUSH Last administered on 05/31/17at 08: 48; Start 05/29/17 at 21:00 Naloxone HCl (Narcan Inj) 0.4 mg UNSCH PRN IV PUSH SEE LABEL COMMENTS; Start at 18:30 Senna/Docusate Sodium (Danyelle-Colace) 1 tab BID PO ; Start 05/29/17 at 21:00; Stop 05/29/17 at 21:00; Status DC Magnesium Hydroxide (Milk Of Magnesia Liq) 30 ml Q12H PRN PO Mild constipation ; Start 05/29/17 at 18:30 Sennosides (Senokot) 17.2 mg Q12H PRN PO Moderate constipation; Start 05/29/17 at 18:30; Stop 05/29/17 at 18:50; Status DC Bisacodyl (Dulcolax Supp) 10 mg DAILY PRN RECTAL SEVERE CONSITIPATION; Start at 18:30 Lactulose (Lactulose Liq) 30 ml DAILY PRN PO SEVERE CONSITIPATION; Start at 18:30; Stop 05/29/17 at 18:50; Status DC Acetaminophen (Tylenol) 650 mg Q4H PRN PO TEMP > 100.4; Start 05/29/17 at 18:30 Ondansetron HCl (Zofran Inj) 4 mg Q6H PRN IVP NAUSEA OR VOMITING; Start at 18:30 Prochlorperazine (Compazine Supp) 25 mg Q12H PRN RECTAL NAUSEA OR VOMITING; Start 05/29/17 at 18:30 Heparin Sodium (Porcine) (Heparin Inj) 5,000 units Q12H SQ Last administered on 06/01/17at 08:27; Start 05/29/17 at 20:00 Acetaminophen (Tylenol) 650 mg Q6H PRN PO PAIN SCALE 1 TO 2; Start 05/29/17 at 18:30 Oxycodone/ Acetaminophen (Percocet 5-325 Mg) 1 tab Q6H PRN PO PAIN SCALE 3 TO 5; Start 05/29/17 at 18:30 Oxycodone/ Acetaminophen (Percocet 10-325 Mg) 1 tab Q6H PRN PO PAIN SCALE 6 TO 10; Start 05/29/17 at 18:30 Morphine Sulfate (Morphine Inj) 2 mg Q3H PRN IV PUSH Pain 3-5; if unable to take PO; Start 05/29/17 at 18:30 Morphine Sulfate (Morphine Inj) 4 mg Q3H PRN IV PUSH Pain 6-10;if unable to take PO; Start 05/29/17 at 19:15 Naloxone HCl (Narcan Inj) 0.4 mg UNSCH PRN IV PUSH SEE LABEL COMMENTS; Start at 18:30; Stop 05/29/17 at 18:50; Status DC Senna/Docusate Sodium (Danyelle-Colace) 1 tab BID PO Last administered on at 08:29; Start 05/29/17 at 21:00 Magnesium Hydroxide (Milk Of Magnesia Liq) 30 ml Q12H PRN PO Mild constipation ; Start 05/29/17 at 18:30; Stop 05/29/17 at 18:50; Status DC Sennosides (Senokot) 17.2 mg Q12H PRN PO Moderate constipation; Start 05/29/17 at 18:30 Bisacodyl (Dulcolax Supp) 10 mg DAILY PRN RECTAL SEVERE CONSITIPATION; Start at 18:30; Stop 05/29/17 at 19:03; Status DC Lactulose (Lactulose Liq) 30 ml DAILY PRN PO SEVERE CONSITIPATION; Start at 18:30 Sodium Chloride 1,000 ml @ 70 mls/hr [id number] IV Last administered on at 05:42; Start 05/29/17 at 20:30 Furosemide (Lasix Inj) 20 mg BID@09,18 IV PUSH Last administered on 05/30/17at 08:45; Start 05/30/17 at 09:00; Stop 05/30/17 at 17:47; Status DC Ceftriaxone Sodium 1000 mg/ Sodium Chloride 100 ml @ 200 mls/hr Q24H IV Last administered on 05/31/17at 17:58; Start 05/30/17 at 17:00 Amlodipine Besylate (Norvasc) 10 mg DAILY PO Last administered on 06/01/17at 08: 28; Start 06/01/17 at 09:00 A/P Assessment and Plan 1. Fall Patient suffered a mechanical fall Complaining of bilateral hip pain Pelvic x-ray pending PT AND OT 2. Acute kidney injury- SUSPECT CHRONIC KIDNEY DISEASE DUE TO RENAL ULTRASOUND SUGGESTING MEDICAL RENAL DISEASE BUN/creatinine 46/2.98 Baseline unknown Concern for rhabdo given fall, CK pending Gentle IV fluid hydration given lower extremity edema Monitor renal function Consider nephrology consult if renal function does not improve 3. Bilateral lower extremity edema Patient with history of DVT; bilateral ultrasound pending BMP 623, echo pending LASIX BEING HELD Chest x-ray with no signs of volume overload, personally reviewed ACS rule out pending CONSULT VASCULAR REGARDING US OF RIGHT GROIN 4. Hypertension/hyperlipidemia Metoprolol with clonidine when necessary Lipid profile pending MEDS INCREASED FOR HYPERTENSION- NORVASC 5. ? Diabetes mellitus A1c pending- NORMAL SUSPECT NOT A DIABETIC Sliding scale insulin DC Monitor blood glucose DC FEN Renal diet NS at 70 cc/hr Electrolytes: monitor and replete prn Heparin UTI- ROCEPHIN 1 GRAM DAILY AM LABS RENAL FUNCTIONS IMPROVEMENT Discharge Planning PENDING IMPROVEMENT IN ACTIVITY AND OR KIDNEY FUNCTIONS AM LABS Hiro Tom DO Jun 01, 2017 09:50
--- NOTE | 2017-06-01 10:05 | HHI.NPPN ---
Subjective General Problems: Anemia Renal Failure: Chronic, Acute History of Present Illness This is an 82-year-old male with a past medical history of hypertension, diabetes mellitus, hyperlipidemia, history of deep vein thrombosis, possible chronic kidney disease, came to the hospital with complaint of leg edema and history of a fall. Nephrology was called to see the patient because of elevated BUN and creatinine. The patient was found to have creatinine of 2.9 on admission and now it is 2.8. He previously had creatinine of 1.2. This was in 2008. The patient denies any known history of renal disease. He was seen by his primary care physician in February and according to him, he was never told that he has any kidney disease. The patient has some prostatic symptoms and he admits that he has some trouble passing the urine for the last 2-3 weeks. He denies any history of dysuria or hematuria, but he has dysuria and hematuria after they tried to put the Scanlon catheter here in the hospital. He has this swelling in the legs, according to him, for the last 2 years,and it has been improving. He fell down 2 days before the admission. Denies any loss of consciousness. According to him, he did not keep his balance and he fell down. He was complaining of some hip pain, but denies taking any nonsteroidal anti- inflammatory drugs at home. Additional Remarks Patient is alert, feeling better, no SOB. Review of Systems Respiratory Respiratory Remarks Denies any SOB Cardiovascular Cardiac: Edema Cardiac Remarks Denies any CP Gastrointestinal GI Remarks Denies any abdominal pain Genitourinary Genitourinary: Burning Objective Data Data Vital Signs Date Time Temp Pulse Resp B/P (MAP) Pulse Ox O2 Delivery O2 Flow Rate FiO2 06/01/17 08:00 98.0 91 18 162/79 (106) 98 06/01/17 04:00 97.7 69 18 158/81 (106) 99 06/01/17 03:51 58 06/01/17 00:00 70 18 192/91 (124) 96 05/31/17 23:52 71 05/31/17 19:53 67 05/31/17 19:30 98.2 74 18 163/84 (110) 100 05/31/17 17:49 21 05/31/17 16:00 98.0 68 16 149/79 (102) 99 05/31/17 12:00 97.2 66 16 128/69 (88) 100 05/31/17 10:31 72 -: 06/01/17 0626 06/01/17 0626 Physical Exam General Appearance: No Acute Distress, Comfortable Pulmonary Resp Exam: Clear Bilaterally, Breath Sounds Equal, No Distress Cardiology CV Exam: Regular Gastrointestinal/Abdomen GI Exam: Soft, Non-Tender, Bowel Sounds Present Integumentary Skin Exam: Clear, Warm Extremeties Extremities Exam: Moderate Edema Neurologic Neuro Exam: Alert, Awake, Oriented Psychiatric Psych Exam: Appropriate Responses Assessment/Plan Discussed Condition With: Patient, Daughter Assessment Summary: ROBINSON/Acute Renal Failure Problem List: (1) ARF (acute renal failure) ICD Codes: N17.9 - Acute kidney failure, unspecified Status: Acute Plan: Acute Kidney injury either because of dehydration or possibility of rhabdomyolysis, and there must be an underlying chronic kidney disease, although he is not aware of it. Significant proteinuria. Creatinine has improved from 2.78 from 2.86 UOP over night at 1100 Plan; US of kidney pending\ HTN amlodipine increased Continue gentle hydration C3 and C4 are negative the rest of serology is pending. 24 urine collection ordered Avoid nephrotoxins Follow the urine output and the BUN and creatinine. Patient seen and examined,agree with above. Has bilateral small and echogenic kidneys. Complements normal, and BARTOLO negative. 24 Hr. urine collection in progress. Creatinine is 2.5, better. Can be discharged after urine collection. I can follow as out patient. (2) HTN (hypertension) ICD Codes: I10 - Essential (primary) hypertension Status: Acute Plan: HTN and amlodipine increased. Problem Qualifiers (1) ARF (acute renal failure): Qualified Codes: N17.9 - Acute kidney failure, unspecified (2) HTN (hypertension): Qualified Codes: I10 - Essential (primary) hypertension Cale Avery MD Jun 01, 2017 10:05
--- NOTE | 2017-06-01 14:01 | EKG ---
Date Performed: 06/01/2017 Time Performed: 05:01:25 PTAGE: 82 years EKG: Sinus rhythm WITH OCCASIONAL SUPRAVENTRICULAR PREMATURE COMPLEXES BORDERLINE LEFT AXIS DEVIATION LEFT VENTRICULAR HYPERTROPHY AND ST-T CHANGE ABNORMAL ECG PREVIOUS TRACING : 05/29/2017 21.34 Since the previous tracing, no significant change noted DOCTOR: Rolan Ramirez Interpretating Date/Time 06/01/2017 13:59:05
[2017-06-01] MEDS: cefTRIAXone INJ 1,000 MG in SODIUM CHLORIDE 0.9% INJ 100 ML IV SCH (17:30)
[2017-06-02 00:15] VITALS: BP 173/85; PULSE 85; RESP 18; TEMP 99; O2SAT 96
[2017-06-02 04:15] VITALS: BP 183/93; PULSE 79; RESP 18; TEMP 97.9; O2SAT 98
[2017-06-02] MEDS: cloNIDine HCL 0.1 MG TAB PO PRN (04:35)
[2017-06-02 06:42] LABS: AUTOMATED NEUTROPHIL # 4.3 TH/MM3 (1.8-7.7); BASOPHIL # 0.1 TH/MM3 (0-0.2); EOSINOPHIL # 0.3 TH/MM3 (0-0.4); EOSINOPHIL % 4.9 % (0.0-4.0); HEMATOCRIT 34.2 % (39.0-51.0); LYMPH % 21.1 % (9.0-44.0); LYMPHOCYTE # 1.5 TH/MM3 (1.0-4.8); MEAN CELL VOLUME 91.3 FL (80.0-100.0); MEAN CORPUSCULAR HEMOGLOBIN 32.1 PG (27.0-34.0); MEAN CORPUSCULAR HGB CONC 35.2 % (32.0-36.0); MEAN PLATELET VOLUME 8.8 FL (7.0-11.0); MONO % 11.3 % (0.0-8.0); MONOCYTE # 0.8 TH/MM3 (0-0.9); NEUT % 61.7 % (16.0-70.0); PLATELET COUNT 216 TH/MM3 (150-450); RED BLOOD COUNT 3.75 MIL/MM3 (4.50-5.90); RED CELL DISTRIBUTION WIDTH 13.8 % (11.6-17.2); WHITE BLOOD COUNT 6.9 TH/MM3 (4.0-11.0)
[2017-06-02 07:07] LABS: ALBUMIN 2.8 GM/DL (3.4-5.0); AST (GOT) 35 U/L (15-37); BICARBONATE 19.8 MEQ/L (21.0-32.0); BLOOD UREA NITROGEN 52 MG/DL (7-18); CALCIUM 8.2 MG/DL (8.5-10.1); CHLORIDE 107 MEQ/L (98-107); CREATININE 2.43 MG/DL (0.60-1.30); GLOMERULAR FILTRATION RATE 31 ML/MIN (>89); GLUCOSE,RANDOM 79 MG/DL (74-106); MAGNESIUM 2.2 MG/DL (1.5-2.5); SODIUM (NA) 136 MEQ/L (136-145)
[2017-06-02 07:08] LABS: ALT (GPT) 29 U/L (12-78); PHOSPHORUS 3.6 MG/DL (2.5-4.9)
[2017-06-02 07:10] LABS: ALKALINE PHOSPHATASE 97 U/L (45-117); TOTAL BILIRUBIN ADULT 0.4 MG/DL (0.2-1.0); TOTAL PROTEIN 6.7 GM/DL (6.4-8.2)
[2017-06-02 08:00] VITALS: BP 193/93; PULSE 76; RESP 18; TEMP 99.3; O2SAT 99
[2017-06-02] MEDS: INSULIN ASPART SUPPLEMENTAL SCALE SQ SCH ×4 (08:00→19:44)
[2017-06-02] MEDS: HEPARIN SODIUM - SQ 10,000 UNITS/ML VIAL SQ SCH ×2 (08:23→19:44)
[2017-06-02] MEDS: TAMSULOSIN HCL 0.4 MG CAP PO SCH (08:23)
[2017-06-02] MEDS: DOCUSATE SODIUM 50 MG/SENNA 8.6 MG TAB PO SCH ×2 (08:24→19:43)
[2017-06-02] MEDS: METOPROLOL TARTRATE 25 MG TAB PO SCH (08:24)
[2017-06-02] MEDS: SODIUM CHLORIDE 0.9% FLUSH 10 ML FLUSH IV FLUSH SCH ×2 (08:27→19:44)
[2017-06-02] MEDS: SODIUM CHLOR 0.9% 1000 ML INJ 1,000 ML IV SCH (10:18)
[2017-06-02 12:00] VITALS: BP 174/81; PULSE 70; RESP 18; TEMP 98.1; O2SAT 100
--- NOTE | 2017-06-02 12:56 | HHI.PR ---
Subjective Remarks 82-year-old male with a past medical history significant for hypertension, hyperlipidemia, borderline diabetes mellitus and history of DVT presents to the emergency department for evaluation of a fall. The patient complains of bilateral lower extremity edema for months and is noncompliant with his home medications. Patient denies any history of CHF. The patient reports that he was on the ground for 2-3 hours after his fall. He denies any loss of consciousness. He states he was trying to put on a sock when he lost his balance and fell onto his buttock. He complains of bilateral hip pain. He denies any head trauma. The patient states that he has had increasing fatigue and weakness over the past several months. He has not seen his doctor since February and has been noncompliant with all medication since that time. Patient denies fever/chills. Denies shortness of breath or chest pain. Denies nausea/vomiting/diarrhea. No lateralizing signs/symptoms. He is an extremely poor historian. 3 medications restarted checking UA DW RN AND PT NO CURRENT COMPLAINTS BREATHING BETTER NEEDS TO WORK WITH PT AND OT 3 found to have UTI STARTED ON ROCEPHIN SEEN BY VASCULAR AND RENAL NO NEW COMPLAINTS DW RN AND PT AND FAMILY STUDIES ORDERED STILL PENDING 06-01 CONTINUE ON ROCEPHIN KATE ARE STABLE CONTINUE 24 HOUR URINE DC HOPEFULLY IN NEXT 24- 48 HOURS DW RN AND PT AND FAMILY AND RENAL AND CASE MANAGEMENT 4- seen by RENAL AND MYSELF OK FOR SNF IF BED IS AVAILABLE DW RN AND PT AND CM AND FAMILY FOLLOW UP WITH NEPHROLOGY Objective Vitals Vital Signs Date Time Temp Pulse Resp B/P (MAP) Pulse Ox O2 Delivery O2 Flow Rate FiO2 06/02/17 08:00 99.3 76 18 193/93 (126) 99 06/02/17 04:15 97.9 79 18 183/93 (123) 98 06/02/17 00:15 99.0 85 18 173/85 (114) 96 06/01/17 19:30 98.1 87 18 159/88 (111) 99 06/01/17 19:14 98.6 76 18 153/69 (97) 97 06/01/17 14:58 98.0 98 16 128/59 (82) 98 I/O 06/01/17 06/01/17 06/01/17 06/02/17 06/02/17 06/02/17 07:00 15:00 23:00 07:00 15:00 23:00 Intake Total 480 ml 600 ml 360 ml Output Total 200 ml 800 ml Balance 280 ml -200 ml 360 ml Intake Oral 480 ml 600 ml 360 ml Output Urine Total 200 ml 800 ml # Voids 2 # Bowel Movements 0 0 Result Diagram: 06/02/17 0425 06/02/17 0425 Other Results Laboratory Tests Test 05/31/17 07:15 06/01/17 06:26 06/02/17 04:25 06/02/17 08:30 White Blood Count 6.8 TH/MM3 6.0 TH/MM3 6.9 TH/MM3 Red Blood Count 3.34 MIL/MM3 3.39 MIL/MM3 3.75 MIL/MM3 Hemoglobin 10.9 GM/DL 10.8 GM/DL 12.0 GM/DL Hematocrit 29.9 % 30.7 % 34.2 % Mean Corpuscular Volume 89.6 FL 90.6 FL 91.3 FL Mean Corpuscular Hemoglobin 32.7 PG 31.9 PG 32.1 PG Mean Corpuscular Hemoglobin Concent 36.4 % 35.3 % 35.2 % Red Cell Distribution Width 14.0 % 13.9 % 13.8 % Platelet Count 173 TH/MM3 173 TH/MM3 216 TH/MM3 Mean Platelet Volume 8.4 FL 8.6 FL 8.8 FL Neutrophils (%) (Auto) 60.0 % 57.9 % 61.7 % Lymphocytes (%) (Auto) 22.3 % 21.8 % 21.1 % Monocytes (%) (Auto) 11.7 % 13.1 % 11.3 % Eosinophils (%) (Auto) 5.1 % 6.3 % 4.9 % Basophils (%) (Auto) 0.9 % 0.9 % 1.0 % Neutrophils # (Auto) 4.1 TH/MM3 3.5 TH/MM3 4.3 TH/MM3 Lymphocytes # (Auto) 1.5 TH/MM3 1.3 TH/MM3 1.5 TH/MM3 Monocytes # (Auto) 0.8 TH/MM3 0.8 TH/MM3 0.8 TH/MM3 Eosinophils # (Auto) 0.3 TH/MM3 0.4 TH/MM3 0.3 TH/MM3 Basophils # (Auto) 0.1 TH/MM3 0.1 TH/MM3 0.1 TH/MM3 CBC Comment AUTO DIFF DIFF FINAL DIFF FINAL Differential Comment AUTO DIFF CONFIRMED Blood Urea Nitrogen 51 MG/DL 49 MG/DL 52 MG/DL Creatinine 2.78 MG/DL 2.50 MG/DL 2.43 MG/DL Random Glucose 98 MG/DL 87 MG/DL 79 MG/DL Total Protein 6.0 GM/DL 5.8 GM/DL 6.7 GM/DL Albumin 2.5 GM/DL 2.5 GM/DL 2.8 GM/DL Calcium Level 7.8 MG/DL 7.7 MG/DL 8.2 MG/DL Phosphorus Level 3.8 MG/DL 3.4 MG/DL 3.6 MG/DL Magnesium Level 2.1 MG/DL 2.0 MG/DL 2.2 MG/DL Alkaline Phosphatase 76 U/L 74 U/L 97 U/L Aspartate Amino Transf (AST/SGOT) 44 U/L 30 U/L 35 U/L Alanine Aminotransferase (ALT/SGPT) 22 U/L 20 U/L 29 U/L Total Bilirubin 0.5 MG/DL 0.4 MG/DL 0.4 MG/DL Sodium Level 137 MEQ/L 139 MEQ/L 136 MEQ/L Potassium Level 4.5 MEQ/L 4.3 MEQ/L 4.9 MEQ/L Chloride Level 106 MEQ/L 108 MEQ/L 107 MEQ/L Carbon Dioxide Level 22.0 MEQ/L 21.3 MEQ/L 19.8 MEQ/L Anion Gap 9 MEQ/L 10 MEQ/L 9 MEQ/L Estimat Glomerular Filtration Rate 27 ML/MIN 30 ML/MIN 31 ML/MIN Anti-Nuclear Antibody Screen NEG Complement C3 101 MG/DL Complement C4 33 MG/DL Urine Total Volume 24 Hours 1170 ML Urine Total Protein 24 Hour 1494 MG/24HR Imaging Last Impressions Renal Ultrasound 05/31/17 0600 Signed Impressions: Service Date/Time: Wednesday, May 31, 2017 08:16 - CONCLUSION: 1. The kidneys are small and atrophic in appearance with cortical thinning and increased echogenicity characteristic of medical renal disease. 2. No hydronephrosis. 3. Bilateral cysts. Farhat Torres MD Chest X-Ray 05/29/17 1443 Signed Impressions: Service Date/Time: Monday, May 29, 2017 15:07 - CONCLUSION: No acute disease. Kranthi Mcgrath MD Pelvis X-Ray 05/29/17 0000 Signed Impressions: Service Date/Time: Monday, May 29, 2017 20:53 - CONCLUSION: Chronic change. Nestor Sorensen MD Lower Extremity Ultrasound 05/29/17 0000 Signed Impressions: Service Date/Time: Monday, May 29, 2017 22:18 - CONCLUSION: 1. No DVT. 2. 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 This is seen at the anastomosis with a graft. There is color-flow at the orifice of the pseudoaneurysm. The vast majority of the pseudoaneurysm is thrombosed. Nestor Sorensen MD Objective Remarks GENERAL: Cecilia male lying in bed SKIN: Dry, scaly skin covering bilateral lower extremities with chronic skin changes present MIDLINE INCISION FROM CHEST TO UMBILICUS OLD HEALED HEAD: Atraumatic. Normocephalic. No temporal or scalp tenderness. EYES: Pupils equal round and reactive. Extraocular motions intact. No scleral icterus. No injection or drainage. ENT: Nose without bleeding, purulent drainage or septal hematoma. Throat without erythema, tonsillar hypertrophy or exudate. Uvula midline. Airway patent. NECK: Trachea midline. No JVD or lymphadenopathy. Supple, nontender, no meningeal signs. CARDIOVASCULAR: Regular rate and rhythm without murmurs, gallops, or rubs. RESPIRATORY: Clear to auscultation. Breath sounds equal bilaterally. No wheezes , rales, or rhonchi. GASTROINTESTINAL: Abdomen soft, non-tender, nondistended. No hepato-splenomegaly , or palpable masses. No guarding. MUSCULOSKELETAL: 2+ pitting edema in the bilateral lower extremities BRAWNY EDEMA BL LE NEUROLOGICAL: Awake and alert. Cranial nerves II through XII intact. Motor and sensory grossly within normal limits. Normal speech. INSIGHT AND JUDGEMENT ARE GOOD MOOD AND BEHAVIOR ARE APPROPRIATE Procedures NONE Medications and IVs Current Medications Sodium Chloride (NS Flush) 2 ml UNSCH PRN IVF FLUSH AFTER USING IV ACCESS; Start 05/29/17 at 14:45; Stop 05/29/17 at 18:47; Status DC Metoprolol Tartrate (Lopressor Inj) 5 mg ONCE ONCE IV PUSH Last administered on 05/29/17at 15:11; Start 05/29/17 at 15:00; Stop 05/29/17 at 15:01; Status DC Dextrose (D50w (Vial) Inj) 50 ml UNSCH PRN IV PUSH HYPOGLYCEMIA-SEE COMMENTS; Start 05/29/17 at 18:30 Glucagon (Glucagon Inj) 1 mg UNSCH PRN OTHER HYPOGLYCEMIA-SEE COMMENTS; Start 05/29/17 at 18:30 Insulin Aspart (NovoLOG SUPPLEMENTAL SCALE) 1 ACHS SLIDING SCALE SQ ; Start at 21:00 Clonidine (Catapres) 0.1 mg Q4H PRN PO SBP>160, DBP>90 Last administered on 06/02at 04:35; Start 05/29/17 at 18:30 Metoprolol Tartrate (Lopressor) 25 mg Q12HR PO Last administered on 06/02/17at 08 :24; Start 05/29/17 at 21:00 Furosemide (Lasix) 40 mg DAILY PO ; Start 05/29/17 at 18:30; Stop 05/29/17 at 20 :29; Status DC Amlodipine Besylate (Norvasc) 5 mg ONCE ONCE PO Last administered on at 20:32; Start 05/29/17 at 18:30; Stop 05/29/17 at 18:48; Status DC Amlodipine Besylate (Norvasc) 5 mg DAILY PO Last administered on 05/31/17at 08: 47; Start 05/30/17 at 09:00; Stop 05/31/17 at 10:13; Status DC Tamsulosin HCl (Flomax) 0.4 mg DAILY PO Last administered on 06/02/17at 08:23; Start 05/29/17 at 19:30 Sodium Chloride (NS Flush) 2 ml UNSCH PRN IV FLUSH FLUSH AFTER USING IV ACCESS ; Start 05/29/17 at 18:30 Sodium Chloride (NS Flush) 2 ml BID IV FLUSH Last administered on 06/02/17at 08: 27; Start 05/29/17 at 21:00 Naloxone HCl (Narcan Inj) 0.4 mg UNSCH PRN IV PUSH SEE LABEL COMMENTS; Start at 18:30 Senna/Docusate Sodium (Danyelle-Colace) 1 tab BID PO ; Start 05/29/17 at 21:00; Stop 05/29/17 at 21:00; Status DC Magnesium Hydroxide (Milk Of Magnesia Liq) 30 ml Q12H PRN PO Mild constipation ; Start 05/29/17 at 18:30 Sennosides (Senokot) 17.2 mg Q12H PRN PO Moderate constipation; Start 05/29/17 at 18:30; Stop 05/29/17 at 18:50; Status DC Bisacodyl (Dulcolax Supp) 10 mg DAILY PRN RECTAL SEVERE CONSITIPATION; Start at 18:30 Lactulose (Lactulose Liq) 30 ml DAILY PRN PO SEVERE CONSITIPATION; Start at 18:30; Stop 05/29/17 at 18:50; Status DC Acetaminophen (Tylenol) 650 mg Q4H PRN PO TEMP > 100.4; Start 05/29/17 at 18:30 Ondansetron HCl (Zofran Inj) 4 mg Q6H PRN IVP NAUSEA OR VOMITING; Start at 18:30 Prochlorperazine (Compazine Supp) 25 mg Q12H PRN RECTAL NAUSEA OR VOMITING; Start 05/29/17 at 18:30 Heparin Sodium (Porcine) (Heparin Inj) 5,000 units Q12H SQ Last administered on 06/02/17at 08:23; Start 05/29/17 at 20:00 Acetaminophen (Tylenol) 650 mg Q6H PRN PO PAIN SCALE 1 TO 2; Start 05/29/17 at 18:30 Oxycodone/ Acetaminophen (Percocet 5-325 Mg) 1 tab Q6H PRN PO PAIN SCALE 3 TO 5; Start 05/29/17 at 18:30 Oxycodone/ Acetaminophen (Percocet 10-325 Mg) 1 tab Q6H PRN PO PAIN SCALE 6 TO 10; Start 05/29/17 at 18:30 Morphine Sulfate (Morphine Inj) 2 mg Q3H PRN IV PUSH Pain 3-5; if unable to take PO; Start 05/29/17 at 18:30 Morphine Sulfate (Morphine Inj) 4 mg Q3H PRN IV PUSH Pain 6-10;if unable to take PO; Start 05/29/17 at 19:15 Naloxone HCl (Narcan Inj) 0.4 mg UNSCH PRN IV PUSH SEE LABEL COMMENTS; Start at 18:30; Stop 05/29/17 at 18:50; Status DC Senna/Docusate Sodium (Danyelle-Colace) 1 tab BID PO Last administered on 06/02/17at 08:24; Start 05/29/17 at 21:00 Magnesium Hydroxide (Milk Of Magnesia Liq) 30 ml Q12H PRN PO Mild constipation ; Start 05/29/17 at 18:30; Stop 05/29/17 at 18:50; Status DC Sennosides (Senokot) 17.2 mg Q12H PRN PO Moderate constipation; Start 05/29/17 at 18:30 Bisacodyl (Dulcolax Supp) 10 mg DAILY PRN RECTAL SEVERE CONSITIPATION; Start at 18:30; Stop 05/29/17 at 19:03; Status DC Lactulose (Lactulose Liq) 30 ml DAILY PRN PO SEVERE CONSITIPATION; Start at 18:30 Sodium Chloride 1,000 ml @ 70 mls/hr [id number] IV Last administered on at 05:42; Start 05/29/17 at 20:30 Furosemide (Lasix Inj) 20 mg BID@09,18 IV PUSH Last administered on 05/30/17at 08:45; Start 05/30/17 at 09:00; Stop 05/30/17 at 17:47; Status DC Ceftriaxone Sodium 1000 mg/ Sodium Chloride 100 ml @ 200 mls/hr Q24H IV Last administered on 06/01/17at 17:30; Start 05/30/17 at 17:00 Amlodipine Besylate (Norvasc) 10 mg DAILY PO Last administered on 06/02/17at 08: 23; Start 06/01/17 at 09:00 A/P Assessment and Plan 1. Fall Patient suffered a mechanical fall Complaining of bilateral hip pain Pelvic x-ray pending PT AND OT 2. Acute kidney injury- SUSPECT CHRONIC KIDNEY DISEASE DUE TO RENAL ULTRASOUND SUGGESTING MEDICAL RENAL DISEASE BUN/creatinine 46/2.98 Baseline unknown Concern for rhabdo given fall, CK pending Gentle IV fluid hydration given lower extremity edema Monitor renal function Consider nephrology consult if renal function does not improve 3. Bilateral lower extremity edema Patient with history of DVT; bilateral ultrasound pending BMP 623, echo pending LASIX BEING HELD Chest x-ray with no signs of volume overload, personally reviewed ACS rule out pending CONSULT VASCULAR REGARDING US OF RIGHT GROIN 4. Hypertension/hyperlipidemia Metoprolol with clonidine when necessary Lipid profile pending MEDS INCREASED FOR HYPERTENSION- NORVASC 5. ? Diabetes mellitus A1c pending- NORMAL SUSPECT NOT A DIABETIC Sliding scale insulin DC Monitor blood glucose DC FEN Renal diet NS at 70 cc/hr Electrolytes: monitor and replete prn Heparin UTI- ROCEPHIN 1 GRAM DAILY AM LABS RENAL FUNCTIONS IMPROVEMENT DC TO SNF IF BED AVAILABLE CLEARED FOR DC BY ALL OTHERS FOLLOW UP NEPHROLOGY Discharge Planning PENDING IMPROVEMENT IN ACTIVITY AND OR KIDNEY FUNCTIONS AM LABS Hiro Tom DO Jun 02, 2017 12:56
[2017-06-02] MEDS ORDERED: SENN187 PO (12:59)
[2017-06-02] MEDS ORDERED: TAMS5CAP PO (12:59)
[2017-06-02] MEDS ORDERED: METO25TA3 PO (12:59)
[2017-06-02] MEDS ORDERED: CEFU1TAB18 PO (12:59)
[2017-06-02] MEDS ORDERED: OXYC1TAB63 PO (12:59)
[2017-06-02] MEDS ORDERED: CLON.1 PO (12:59)
[2017-06-02] MEDS ORDERED: AMLO10 PO (12:59)
--- NOTE | 2017-06-02 13:02 | HHI.DS ---
Discharge Summary Admission Date May 29, 2017 at 18:23 Discharge Date: Jun 02, 2017 Admitting Diagnosis ARF, CHF, HTN (1) ARF (acute renal failure) ICD Code: N17.9 - Acute kidney failure, unspecified Status: Acute (2) HTN (hypertension) ICD Code: I10 - Essential (primary) hypertension Status: Acute (3) Urinary hesitancy ICD Code: R39.11 - Hesitancy of micturition Status: Acute (4) CHF (congestive heart failure) ICD Code: I50.9 - Heart failure, unspecified Status: Acute Procedures NONE Brief History - From Admission 82-year-old male with a past medical history significant for hypertension, hyperlipidemia, borderline diabetes mellitus and history of DVT presents to the emergency department for evaluation of a fall. The patient complains of bilateral lower extremity edema for months and is noncompliant with his home medications. Patient denies any history of CHF. The patient reports that he was on the ground for 2-3 hours after his fall. He denies any loss of consciousness. He states he was trying to put on a sock when he lost his balance and fell onto his buttock. He complains of bilateral hip pain. He denies any head trauma. The patient states that he has had increasing fatigue and weakness over the past several months. He has not seen his doctor since February and has been noncompliant with all medication since that time. Patient denies fever/chills. Denies shortness of breath or chest pain. Denies nausea/vomiting/diarrhea. No lateralizing signs/symptoms. He is an extremely poor historian. CBC/BMP: 06/02/17 0425 06/02/17 0425 Significant Findings Laboratory Tests Test 05/31/17 07:15 06/01/17 06:26 06/02/17 04:25 06/02/17 08:30 Red Blood Count 3.34 MIL/MM3 (4.50-5.90) 3.39 MIL/MM3 (4.50-5.90) 3.75 MIL/MM3 (4.50-5.90) Hemoglobin 10.9 GM/DL (13.0-17.0) 10.8 GM/DL (13.0-17.0) 12.0 GM/DL (13.0-17.0) Hematocrit 29.9 % (39.0-51.0) 30.7 % (39.0-51.0) 34.2 % (39.0-51.0) Mean Corpuscular Hemoglobin Concent 36.4 % (32.0-36.0) Monocytes (%) (Auto) 11.7 % (0.0-8.0) 13.1 % (0.0-8.0) 11.3 % (0.0-8.0) Eosinophils (%) (Auto) 5.1 % (0.0-4.0) 6.3 % (0.0-4.0) 4.9 % (0.0-4.0) Blood Urea Nitrogen 51 MG/DL (7-18) 49 MG/DL (7-18) 52 MG/DL (7-18) Creatinine 2.78 MG/DL (0.60-1.30) 2.50 MG/DL (0.60-1.30) 2.43 MG/DL (0.60-1.30) Total Protein 6.0 GM/DL (6.4-8.2) 5.8 GM/DL (6.4-8.2) Albumin 2.5 GM/DL (3.4-5.0) 2.5 GM/DL (3.4-5.0) 2.8 GM/DL (3.4-5.0) Calcium Level 7.8 MG/DL (8.5-10.1) 7.7 MG/DL (8.5-10.1) 8.2 MG/DL (8.5-10.1) Aspartate Amino Transf (AST/SGOT) 44 U/L (15-37) Estimat Glomerular Filtration Rate 27 ML/MIN (>89) 30 ML/MIN (>89) 31 ML/MIN (>89) Chloride Level 108 MEQ/L (98-107) Carbon Dioxide Level 19.8 MEQ/L (21.0-32.0) Urine Total Protein 24 Hour 1494 MG/24HR (0-150) Imaging Last Impressions Renal Ultrasound 05/31/17 0600 Signed Impressions: Service Date/Time: Wednesday, May 31, 2017 08:16 - CONCLUSION: 1. The kidneys are small and atrophic in appearance with cortical thinning and increased echogenicity characteristic of medical renal disease. 2. No hydronephrosis. 3. Bilateral cysts. Farhat Torres MD Chest X-Ray 05/29/17 1443 Signed Impressions: Service Date/Time: Monday, May 29, 2017 15:07 - CONCLUSION: No acute disease. Kranthi Mcgrath MD Pelvis X-Ray 05/29/17 0000 Signed Impressions: Service Date/Time: Monday, May 29, 2017 20:53 - CONCLUSION: Chronic change. Nestor Sorensen MD Lower Extremity Ultrasound 05/29/17 0000 Signed Impressions: Service Date/Time: Monday, May 29, 2017 22:18 - CONCLUSION: 1. No DVT. 2. 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 This is seen at the anastomosis with a graft. There is color-flow at the orifice of the pseudoaneurysm. The vast majority of the pseudoaneurysm is thrombosed. Nestor Sorensen MD PE at Discharge GENERAL: Cecilia male lying in bed SKIN: Dry, scaly skin covering bilateral lower extremities with chronic skin changes present MIDLINE INCISION FROM CHEST TO UMBILICUS OLD HEALED HEAD: Atraumatic. Normocephalic. No temporal or scalp tenderness. EYES: Pupils equal round and reactive. Extraocular motions intact. No scleral icterus. No injection or drainage. ENT: Nose without bleeding, purulent drainage or septal hematoma. Throat without erythema, tonsillar hypertrophy or exudate. Uvula midline. Airway patent. NECK: Trachea midline. No JVD or lymphadenopathy. Supple, nontender, no meningeal signs. CARDIOVASCULAR: Regular rate and rhythm without murmurs, gallops, or rubs. RESPIRATORY: Clear to auscultation. Breath sounds equal bilaterally. No wheezes , rales, or rhonchi. GASTROINTESTINAL: Abdomen soft, non-tender, nondistended. No hepato-splenomegaly , or palpable masses. No guarding. MUSCULOSKELETAL: 2+ pitting edema in the bilateral lower extremities BRAWNY EDEMA BL LE NEUROLOGICAL: Awake and alert. Cranial nerves II through XII intact. Motor and sensory grossly within normal limits. Normal speech. INSIGHT AND JUDGEMENT ARE GOOD MOOD AND BEHAVIOR ARE APPROPRIATE Hospital Course 82-year-old male with a past medical history significant for hypertension, hyperlipidemia, borderline diabetes mellitus and history of DVT presents to the emergency department for evaluation of a fall. The patient complains of bilateral lower extremity edema for months and is noncompliant with his home medications. Patient denies any history of CHF. The patient reports that he was on the ground for 2-3 hours after his fall. He denies any loss of consciousness. He states he was trying to put on a sock when he lost his balance and fell onto his buttock. He complains of bilateral hip pain. He denies any head trauma. The patient states that he has had increasing fatigue and weakness over the past several months. He has not seen his doctor since February and has been noncompliant with all medication since that time. Patient denies fever/chills. Denies shortness of breath or chest pain. Denies nausea/vomiting/diarrhea. No lateralizing signs/symptoms. He is an extremely poor historian. 3 medications restarted checking UA DW RN AND PT NO CURRENT COMPLAINTS BREATHING BETTER NEEDS TO WORK WITH PT AND OT 3 found to have UTI STARTED ON ROCEPHIN SEEN BY VASCULAR AND RENAL NO NEW COMPLAINTS DW RN AND PT AND FAMILY STUDIES ORDERED STILL PENDING 3 CONTINUE ON ROCEPHIN KATE ARE STABLE CONTINUE 24 HOUR URINE DC HOPEFULLY IN NEXT 24- 48 HOURS DW RN AND PT AND FAMILY AND RENAL AND CASE MANAGEMENT Pt Condition on Discharge: Good Discharge Disposition: Discharge to SNF Discharge Time: > 30 minutes Discharge Instructions DIET: Follow Instructions for: Heart Healthy Diet, Renal Failure Diet Speech Therapy-Diet Recommends: Regular Activities you can perform: Regular-No Restrictions Follow up Referrals: Nephrology - 2 Weeks with Cale Avery MD PCP Follow-up - 1 Week with Nestor Lockwood MD New Medications: Cefuroxime (Ceftin) 250 Mg Tab 250 MG PO BID for Infection for 5 Days, #10 TAB Amlodipine (Norvasc) 10 Mg Tab 10 MG PO DAILY for Blood Pressure Management, #30 TAB Clonidine (Catapres) 0.1 Mg Tab 0.1 MG PO Q4H PRN for SBP>160, DBP>90, #120 TAB Metoprolol Tartrate (Metoprolol Tartrate) 25 Mg Tab 25 MG PO Q12HR for Blood Pressure Management, #60 TAB Oxycodone HCl/Acetaminophen (Oxycodone-Acetaminophen 5-325) 5 Mg-325 Mg Tablet 1 TAB PO Q6H PRN for PAIN SCALE 3 TO 5, #60 TAB Sennosides (Senna-Lax) 8.6 Mg Tab 17.2 MG PO Q12H for Constipation, #120 TAB Tamsulosin (Flomax) 0.4 Mg Cap 0.4 MG PO DAILY for Manage Prostate Problems, #30 CAP Hiro Tom DO Jun 02, 2017 13:02
--- NOTE | 2017-06-02 13:41 | HHI.NPPN ---
Subjective General Problems: Anemia Renal Failure: Chronic, Acute History of Present Illness This is an 82-year-old male with a past medical history of hypertension, diabetes mellitus, hyperlipidemia, history of deep vein thrombosis, possible chronic kidney disease, came to the hospital with complaint of leg edema and history of a fall. Nephrology was called to see the patient because of elevated BUN and creatinine. The patient was found to have creatinine of 2.9 on admission and now it is 2.8. He previously had creatinine of 1.2. This was in 2008. The patient denies any known history of renal disease. He was seen by his primary care physician in February and according to him, he was never told that he has any kidney disease. The patient has some prostatic symptoms and he admits that he has some trouble passing the urine for the last 2-3 weeks. He denies any history of dysuria or hematuria, but he has dysuria and hematuria after they tried to put the Scanlon catheter here in the hospital. He has this swelling in the legs, according to him, for the last 2 years,and it has been improving. He fell down 2 days before the admission. Denies any loss of consciousness. According to him, he did not keep his balance and he fell down. He was complaining of some hip pain, but denies taking any nonsteroidal anti- inflammatory drugs at home. Additional Remarks Patient is alert, feeling better, no SOB, eating, no complaint. Review of Systems Respiratory Respiratory Remarks Denies any SOB Cardiovascular Cardiac: Edema Cardiac Remarks Denies any CP Gastrointestinal GI Remarks Denies any abdominal pain Genitourinary Genitourinary: Burning Objective Data Data Vital Signs Date Time Temp Pulse Resp B/P (MAP) Pulse Ox O2 Delivery O2 Flow Rate FiO2 06/02/17 12:00 98.1 70 18 174/81 (112) 100 06/02/17 08:00 99.3 76 18 193/93 (126) 99 06/02/17 04:15 97.9 79 18 183/93 (123) 98 06/02/17 00:15 99.0 85 18 173/85 (114) 96 06/01/17 19:30 98.1 87 18 159/88 (111) 99 06/01/17 19:14 98.6 76 18 153/69 (97) 97 06/01/17 14:58 98.0 98 16 128/59 (82) 98 -: 06/02/17 0425 06/02/17 0425 Physical Exam General Appearance: No Acute Distress, Comfortable Pulmonary Resp Exam: Clear Bilaterally, Breath Sounds Equal, No Distress Cardiology CV Exam: Regular Gastrointestinal/Abdomen GI Exam: Soft, Non-Tender, Bowel Sounds Present Integumentary Skin Exam: Clear, Warm Extremeties Extremities Exam: Moderate Edema Neurologic Neuro Exam: Alert, Awake, Oriented Psychiatric Psych Exam: Appropriate Responses Assessment/Plan Discussed Condition With: Patient, Daughter Assessment Summary: ROBINSON/Acute Renal Failure Problem List: (1) ARF (acute renal failure) ICD Codes: N17.9 - Acute kidney failure, unspecified Status: Acute Plan: Acute Kidney injury either because of dehydration or possibility of rhabdomyolysis, and there must be an underlying chronic kidney disease, although he is not aware of it. Significant proteinuria. Creatinine has improved from 2.78 from 2.86 UOP over night at 1100 Plan; US of kidney pending\ HTN amlodipine increased Continue gentle hydration C3 and C4 are negative the rest of serology is pending. 24 urine collection ordered Avoid nephrotoxins Follow the urine output and the BUN and creatinine. Patient seen and examined,agree with above. Has bilateral small and echogenic kidneys. Complements normal, and BARTOLO negative. 24 Hr. urine collection in progress. Creatinine is now 2.4, 24 hr. urine protein is 1.7 gm only. For placement in SNF. (2) HTN (hypertension) ICD Codes: I10 - Essential (primary) hypertension Status: Acute Plan: HTN and amlodipine increased. Problem Qualifiers (1) ARF (acute renal failure): Qualified Codes: N17.9 - Acute kidney failure, unspecified (2) HTN (hypertension): Qualified Codes: I10 - Essential (primary) hypertension Cale Avery MD Jun 02, 2017 13:41
[2017-06-02] MEDS: cefTRIAXone INJ 1,000 MG in SODIUM CHLORIDE 0.9% INJ 100 ML IV SCH (17:39)
[2017-06-02] MEDS: METOPROLOL TARTRATE 50 MG TAB PO SCH (19:43)
[2017-06-02 20:00] VITALS: BP 178/84; PULSE 85; RESP 20; TEMP 98.1; O2SAT 97
[2017-06-02 21:44] VITALS: O2SAT 100
[2017-06-03] VITALS (9 sets, daily range): BP systolic 137–174; BP diastolic 66–84; PULSE 66–96; RESP 17–18; TEMP 97.3–98.5; O2SAT 94–99
[2017-06-03] MEDS: SODIUM CHLOR 0.9% 1000 ML INJ 1,000 ML IV SCH ×2 (00:36→14:54)
[2017-06-03] MEDS: INSULIN ASPART SUPPLEMENTAL SCALE SQ SCH ×4 (08:00→21:00)
[2017-06-03] MEDS: HEPARIN SODIUM - SQ 10,000 UNITS/ML VIAL SQ SCH ×2 (08:11→20:59)
[2017-06-03] MEDS: SODIUM CHLORIDE 0.9% FLUSH 10 ML FLUSH IV FLUSH SCH ×2 (08:12→20:59)
[2017-06-03] MEDS: METOPROLOL TARTRATE 50 MG TAB PO SCH ×2 (08:12→20:59)
[2017-06-03] MEDS: DOCUSATE SODIUM 50 MG/SENNA 8.6 MG TAB PO SCH ×2 (08:12→20:59)
[2017-06-03] MEDS: TAMSULOSIN HCL 0.4 MG CAP PO SCH (08:12)
--- NOTE | 2017-06-03 09:50 | HHI.NPPN ---
Subjective General Problems: Anemia Renal Failure: Chronic, Acute History of Present Illness This is an 82-year-old male with a past medical history of hypertension, diabetes mellitus, hyperlipidemia, history of deep vein thrombosis, possible chronic kidney disease, came to the hospital with complaint of leg edema and history of a fall. Nephrology was called to see the patient because of elevated BUN and creatinine. The patient was found to have creatinine of 2.9 on admission and now it is 2.8. He previously had creatinine of 1.2. This was in 2008. The patient denies any known history of renal disease. He was seen by his primary care physician in February and according to him, he was never told that he has any kidney disease. The patient has some prostatic symptoms and he admits that he has some trouble passing the urine for the last 2-3 weeks. He denies any history of dysuria or hematuria, but he has dysuria and hematuria after they tried to put the Scanlon catheter here in the hospital. He has this swelling in the legs, according to him, for the last 2 years,and it has been improving. He fell down 2 days before the admission. Denies any loss of consciousness. According to him, he did not keep his balance and he fell down. He was complaining of some hip pain, but denies taking any nonsteroidal anti- inflammatory drugs at home. Additional Remarks Patient is alert with family at bedside, no complaints. (Damaris Sommers) Review of Systems Respiratory Respiratory Remarks Denies any SOB (Damaris Sommers) Cardiovascular Cardiac: Edema Cardiac Remarks Denies any CP (Damaris Sommers) Gastrointestinal GI Remarks Denies any abdominal pain (Damaris Sommers) Genitourinary Genitourinary: Burning (Damaris Sommers) Objective Data Data Vital Signs Date Time Temp Pulse Resp B/P (MAP) Pulse Ox O2 Delivery O2 Flow Rate FiO2 06/03/17 09:27 99 06/03/17 04:00 98.5 72 17 165/77 (106) 97 06/03/17 00:00 98.4 72 17 174/84 (114) 97 06/02/17 21:44 100 21 06/02/17 20:00 98.1 85 20 178/84 (115) 97 06/02/17 12:00 98.1 70 18 174/81 (112) 100 (Damaris Sommers) -: 06/02/17 0425 06/02/17 0425 Physical Exam General Appearance: No Acute Distress, Comfortable (Damaris Sommers) Pulmonary Resp Exam: Clear Bilaterally, Breath Sounds Equal, No Distress (Damaris Sommers) Cardiology CV Exam: Regular (Damaris Sommers) Gastrointestinal/Abdomen GI Exam: Soft, Non-Tender, Bowel Sounds Present (Damaris Sommers) Genitourinary Remarks Suprapubic tenderness on palpation (Damaris Sommers) Integumentary Skin Exam: Clear, Warm (Damaris Sommers) Extremeties Extremities Exam: Moderate Edema (Damaris Sommers) Neurologic Neuro Exam: Alert, Awake, Oriented (Damaris Sommers) Psychiatric Psych Exam: Appropriate Responses (Damaris Sommers) Assessment/Plan Discussed Condition With: Patient, Daughter Assessment Summary: ROBINSON/Acute Renal Failure Problem List: (1) ARF (acute renal failure) ICD Codes: N17.9 - Acute kidney failure, unspecified Status: Acute Plan: Acute Kidney injury either because of dehydration or possibility of rhabdomyolysis, and there must be an underlying chronic kidney disease, although he is not aware of it. Significant proteinuria. US of kidney: Has bilateral small and echogenic kidneys. Complements normal, and BARTOLO negative. 24 hr. urine protein is 1.7 gm only. Plan For discharge to rehab today Will need to be followed by nephrology outpatient with advanced kidney disease Continue to avoid nephrotoxins (2) HTN (hypertension) ICD Codes: I10 - Essential (primary) hypertension Status: Acute Plan: Continue home medications (Damaris Sommers) Problem List: (1) ARF (acute renal failure) ICD Codes: N17.9 - Acute kidney failure, unspecified Status: Acute Plan: Acute Kidney injury either because of dehydration or possibility of rhabdomyolysis, and there must be an underlying chronic kidney disease, although he is not aware of it. Significant proteinuria. US of kidney: Has bilateral small and echogenic kidneys. Complements normal, and BARTOLO negative. 24 hr. urine protein is 1.7 gm only. Plan For discharge to rehab today Will need to be followed by nephrology outpatient with advanced kidney disease Continue to avoid nephrotoxins Patient seen and examined, agree with above. Creatinine is almost same, continue IVF. (2) HTN (hypertension) ICD Codes: I10 - Essential (primary) hypertension Status: Acute Plan: Continue home medications (Cale Avery MD) Problem Qualifiers (1) ARF (acute renal failure): Qualified Codes: N17.9 - Acute kidney failure, unspecified (2) HTN (hypertension): Qualified Codes: I10 - Essential (primary) hypertension Damaris Sommers Jun 03, 2017 09:50 Cale Avery MD Jun 03, 2017 17:54
[2017-06-03 10:03] LABS: AUTOMATED NEUTROPHIL # 3.8 TH/MM3 (1.8-7.7); BASOPHIL % 0.4 % (0.0-2.0); EOSINOPHIL # 0.3 TH/MM3 (0-0.4); EOSINOPHIL % 4.9 % (0.0-4.0); HEMATOCRIT 31.9 % (39.0-51.0); HEMOGLOBIN 11.2 GM/DL (13.0-17.0); LYMPH % 21.8 % (9.0-44.0); LYMPHOCYTE # 1.4 TH/MM3 (1.0-4.8); MEAN CELL VOLUME 90.2 FL (80.0-100.0); MEAN CORPUSCULAR HEMOGLOBIN 31.7 PG (27.0-34.0); MEAN CORPUSCULAR HGB CONC 35.1 % (32.0-36.0); MEAN PLATELET VOLUME 8.3 FL (7.0-11.0); MONO % 12.7 % (0.0-8.0); MONOCYTE # 0.8 TH/MM3 (0-0.9); NEUT % 60.2 % (16.0-70.0); PLATELET COUNT 204 TH/MM3 (150-450); RED BLOOD COUNT 3.54 MIL/MM3 (4.50-5.90); RED CELL DISTRIBUTION WIDTH 13.8 % (11.6-17.2); WHITE BLOOD COUNT 6.3 TH/MM3 (4.0-11.0)
[2017-06-03 10:19] LABS: ALBUMIN 2.6 GM/DL (3.4-5.0); AST (GOT) 31 U/L (15-37); BICARBONATE 21.7 MEQ/L (21.0-32.0); BLOOD UREA NITROGEN 51 MG/DL (7-18); CALCIUM 7.8 MG/DL (8.5-10.1); CHLORIDE 107 MEQ/L (98-107); CREATININE 2.48 MG/DL (0.60-1.30); GLOMERULAR FILTRATION RATE 30 ML/MIN (>89); GLUCOSE,RANDOM 73 MG/DL (74-106); MAGNESIUM 2.1 MG/DL (1.5-2.5); SODIUM (NA) 138 MEQ/L (136-145)
[2017-06-03 10:23] LABS: ALKALINE PHOSPHATASE 80 U/L (45-117); ALT (GPT) 24 U/L (12-78); PHOSPHORUS 4.1 MG/DL (2.5-4.9); TOTAL BILIRUBIN ADULT 0.5 MG/DL (0.2-1.0); TOTAL PROTEIN 6.1 GM/DL (6.4-8.2)
--- NOTE | 2017-06-03 10:56 | HHI.PR ---
Subjective Remarks 82-year-old male with a past medical history significant for hypertension, hyperlipidemia, borderline diabetes mellitus and history of DVT presents to the emergency department for evaluation of a fall. The patient complains of bilateral lower extremity edema for months and is noncompliant with his home medications. Patient denies any history of CHF. The patient reports that he was on the ground for 2-3 hours after his fall. He denies any loss of consciousness. He states he was trying to put on a sock when he lost his balance and fell onto his buttock. He complains of bilateral hip pain. He denies any head trauma. The patient states that he has had increasing fatigue and weakness over the past several months. He has not seen his doctor since February and has been noncompliant with all medication since that time. Patient denies fever/chills. Denies shortness of breath or chest pain. Denies nausea/vomiting/diarrhea. No lateralizing signs/symptoms. He is an extremely poor historian. 3-29 medications restarted checking UA DW RN AND PT NO CURRENT COMPLAINTS BREATHING BETTER NEEDS TO WORK WITH PT AND OT 3-30 found to have UTI STARTED ON ROCEPHIN SEEN BY VASCULAR AND RENAL NO NEW COMPLAINTS DW RN AND PT AND FAMILY STUDIES ORDERED STILL PENDING 3-31 CONTINUE ON ROCEPHIN KATE ARE STABLE CONTINUE 24 HOUR URINE DC HOPEFULLY IN NEXT 24- 48 HOURS DW RN AND PT AND FAMILY AND RENAL AND CASE MANAGEMENT 4-1 seen by RENAL AND MYSELF OK FOR SNF IF BED IS AVAILABLE DW RN AND PT AND CM AND FAMILY FOLLOW UP WITH NEPHROLOGY 4-2 patient had rhabdomyolysis which has improved Patient can be discharged to SNF if bed is available and insurance approves it paperwork has been done Await SNF placement Discussed with patient and RN Objective Vitals Vital Signs Date Time Temp Pulse Resp B/P (MAP) Pulse Ox O2 Delivery O2 Flow Rate FiO2 06/03/17 09:27 99 06/03/17 08:00 97.8 70 17 171/80 (110) 99 06/03/17 04:00 98.5 72 17 165/77 (106) 97 06/03/17 00:00 98.4 72 17 174/84 (114) 97 06/02/17 21:44 100 21 06/02/17 20:00 98.1 85 20 178/84 (115) 97 06/02/17 12:00 98.1 70 18 174/81 (112) 100 I/O 06/02/17 06/02/17 06/02/17 06/03/17 06/03/17 06/03/17 07:00 15:00 23:00 07:00 15:00 23:00 Intake Total 360 ml 600 ml 420 ml Output Total 600 ml 400 ml Balance 360 ml 0 ml 20 ml Intake Oral 360 ml 600 ml 420 ml Output Urine Total 600 ml 400 ml # Voids 2 # Bowel Movements 0 1 Result Diagram: 06/03/17 0933 06/03/17 0933 Other Results Laboratory Tests Test 06/01/17 06:26 06/02/17 04:25 06/02/17 08:30 06/03/17 09:33 White Blood Count 6.0 TH/MM3 6.9 TH/MM3 6.3 TH/MM3 Red Blood Count 3.39 MIL/MM3 3.75 MIL/MM3 3.54 MIL/MM3 Hemoglobin 10.8 GM/DL 12.0 GM/DL 11.2 GM/DL Hematocrit 30.7 % 34.2 % 31.9 % Mean Corpuscular Volume 90.6 FL 91.3 FL 90.2 FL Mean Corpuscular Hemoglobin 31.9 PG 32.1 PG 31.7 PG Mean Corpuscular Hemoglobin Concent 35.3 % 35.2 % 35.1 % Red Cell Distribution Width 13.9 % 13.8 % 13.8 % Platelet Count 173 TH/MM3 216 TH/MM3 204 TH/MM3 Mean Platelet Volume 8.6 FL 8.8 FL 8.3 FL Neutrophils (%) (Auto) 57.9 % 61.7 % 60.2 % Lymphocytes (%) (Auto) 21.8 % 21.1 % 21.8 % Monocytes (%) (Auto) 13.1 % 11.3 % 12.7 % Eosinophils (%) (Auto) 6.3 % 4.9 % 4.9 % Basophils (%) (Auto) 0.9 % 1.0 % 0.4 % Neutrophils # (Auto) 3.5 TH/MM3 4.3 TH/MM3 3.8 TH/MM3 Lymphocytes # (Auto) 1.3 TH/MM3 1.5 TH/MM3 1.4 TH/MM3 Monocytes # (Auto) 0.8 TH/MM3 0.8 TH/MM3 0.8 TH/MM3 Eosinophils # (Auto) 0.4 TH/MM3 0.3 TH/MM3 0.3 TH/MM3 Basophils # (Auto) 0.1 TH/MM3 0.1 TH/MM3 0.0 TH/MM3 CBC Comment DIFF FINAL DIFF FINAL DIFF FINAL Differential Comment Blood Urea Nitrogen 49 MG/DL 52 MG/DL 51 MG/DL Creatinine 2.50 MG/DL 2.43 MG/DL 2.48 MG/DL Random Glucose 87 MG/DL 79 MG/DL 73 MG/DL Total Protein 5.8 GM/DL 6.7 GM/DL 6.1 GM/DL Albumin 2.5 GM/DL 2.8 GM/DL 2.6 GM/DL Calcium Level 7.7 MG/DL 8.2 MG/DL 7.8 MG/DL Phosphorus Level 3.4 MG/DL 3.6 MG/DL 4.1 MG/DL Magnesium Level 2.0 MG/DL 2.2 MG/DL 2.1 MG/DL Alkaline Phosphatase 74 U/L 97 U/L 80 U/L Aspartate Amino Transf (AST/SGOT) 30 U/L 35 U/L 31 U/L Alanine Aminotransferase (ALT/SGPT) 20 U/L 29 U/L 24 U/L Total Bilirubin 0.4 MG/DL 0.4 MG/DL 0.5 MG/DL Sodium Level 139 MEQ/L 136 MEQ/L 138 MEQ/L Potassium Level 4.3 MEQ/L 4.9 MEQ/L 4.6 MEQ/L Chloride Level 108 MEQ/L 107 MEQ/L 107 MEQ/L Carbon Dioxide Level 21.3 MEQ/L 19.8 MEQ/L 21.7 MEQ/L Anion Gap 10 MEQ/L 9 MEQ/L 9 MEQ/L Estimat Glomerular Filtration Rate 30 ML/MIN 31 ML/MIN 30 ML/MIN Urine Total Volume 24 Hours 1170 ML Urine Total Protein 24 Hour 1494 MG/24HR Imaging Last Impressions Renal Ultrasound 05/31/17 0600 Signed Impressions: Service Date/Time: Wednesday, May 31, 2017 08:16 - CONCLUSION: 1. The kidneys are small and atrophic in appearance with cortical thinning and increased echogenicity characteristic of medical renal disease. 2. No hydronephrosis. 3. Bilateral cysts. Farhat Torres MD Chest X-Ray 05/29/17 1443 Signed Impressions: Service Date/Time: Monday, May 29, 2017 15:07 - CONCLUSION: No acute disease. Kranthi Mcgrath MD Pelvis X-Ray 05/29/17 0000 Signed Impressions: Service Date/Time: Monday, May 29, 2017 20:53 - CONCLUSION: Chronic change. Nestor Sorensen MD Lower Extremity Ultrasound 05/29/17 0000 Signed Impressions: Service Date/Time: Monday, May 29, 2017 22:18 - CONCLUSION: 1. No DVT. 2. 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 This is seen at the anastomosis with a graft. There is color-flow at the orifice of the pseudoaneurysm. The vast majority of the pseudoaneurysm is thrombosed. Nestor Sorensen MD Objective Remarks GENERAL: Cecilia male lying in bed SKIN: Dry, scaly skin covering bilateral lower extremities with chronic skin changes present MIDLINE INCISION FROM CHEST TO UMBILICUS OLD HEALED HEAD: Atraumatic. Normocephalic. No temporal or scalp tenderness. EYES: Pupils equal round and reactive. Extraocular motions intact. No scleral icterus. No injection or drainage. ENT: Nose without bleeding, purulent drainage or septal hematoma. Throat without erythema, tonsillar hypertrophy or exudate. Uvula midline. Airway patent. NECK: Trachea midline. No JVD or lymphadenopathy. Supple, nontender, no meningeal signs. CARDIOVASCULAR: Regular rate and rhythm without murmurs, gallops, or rubs. RESPIRATORY: Clear to auscultation. Breath sounds equal bilaterally. No wheezes , rales, or rhonchi. GASTROINTESTINAL: Abdomen soft, non-tender, nondistended. No hepato-splenomegaly , or palpable masses. No guarding. MUSCULOSKELETAL: 2+ pitting edema in the bilateral lower extremities BRAWNY EDEMA BL LE NEUROLOGICAL: Awake and alert. Cranial nerves II through XII intact. Motor and sensory grossly within normal limits. Normal speech. INSIGHT AND JUDGEMENT ARE GOOD MOOD AND BEHAVIOR ARE APPROPRIATE Procedures NONE Medications and IVs Current Medications Sodium Chloride (NS Flush) 2 ml UNSCH PRN IVF FLUSH AFTER USING IV ACCESS; Start 05/29/17 at 14:45; Stop 05/29/17 at 18:47; Status DC Metoprolol Tartrate (Lopressor Inj) 5 mg ONCE ONCE IV PUSH Last administered on 05/29/17at 15:11; Start 05/29/17 at 15:00; Stop 05/29/17 at 15:01; Status DC Dextrose (D50w (Vial) Inj) 50 ml UNSCH PRN IV PUSH HYPOGLYCEMIA-SEE COMMENTS; Start 05/29/17 at 18:30 Glucagon (Glucagon Inj) 1 mg UNSCH PRN OTHER HYPOGLYCEMIA-SEE COMMENTS; Start 05/29/17 at 18:30 Insulin Aspart (NovoLOG SUPPLEMENTAL SCALE) 1 ACHS SLIDING SCALE SQ ; Start at 21:00 Clonidine (Catapres) 0.1 mg Q4H PRN PO SBP>160, DBP>90 Last administered on 06/02at 04:35; Start 05/29/17 at 18:30 Metoprolol Tartrate (Lopressor) 25 mg Q12HR PO Last administered on 06/02/17at 08 :24; Start 05/29/17 at 21:00; Stop 06/02/17 at 13:41; Status DC Furosemide (Lasix) 40 mg DAILY PO ; Start 05/29/17 at 18:30; Stop 05/29/17 at 20 :29; Status DC Amlodipine Besylate (Norvasc) 5 mg ONCE ONCE PO Last administered on at 20:32; Start 05/29/17 at 18:30; Stop 05/29/17 at 18:48; Status DC Amlodipine Besylate (Norvasc) 5 mg DAILY PO Last administered on 05/31/17at 08: 47; Start 05/30/17 at 09:00; Stop 05/31/17 at 10:13; Status DC Tamsulosin HCl (Flomax) 0.4 mg DAILY PO Last administered on 06/03/17at 08:12; Start 05/29/17 at 19:30 Sodium Chloride (NS Flush) 2 ml UNSCH PRN IV FLUSH FLUSH AFTER USING IV ACCESS ; Start 05/29/17 at 18:30 Sodium Chloride (NS Flush) 2 ml BID IV FLUSH Last administered on 06/03/17at 08: 12; Start 05/29/17 at 21:00 Naloxone HCl (Narcan Inj) 0.4 mg UNSCH PRN IV PUSH SEE LABEL COMMENTS; Start at 18:30 Senna/Docusate Sodium (Danyelle-Colace) 1 tab BID PO ; Start 05/29/17 at 21:00; Stop 05/29/17 at 21:00; Status DC Magnesium Hydroxide (Milk Of Magnesia Liq) 30 ml Q12H PRN PO Mild constipation ; Start 05/29/17 at 18:30 Sennosides (Senokot) 17.2 mg Q12H PRN PO Moderate constipation; Start 05/29/17 at 18:30; Stop 05/29/17 at 18:50; Status DC Bisacodyl (Dulcolax Supp) 10 mg DAILY PRN RECTAL SEVERE CONSITIPATION; Start at 18:30 Lactulose (Lactulose Liq) 30 ml DAILY PRN PO SEVERE CONSITIPATION; Start at 18:30; Stop 05/29/17 at 18:50; Status DC Acetaminophen (Tylenol) 650 mg Q4H PRN PO TEMP > 100.4; Start 05/29/17 at 18:30 Ondansetron HCl (Zofran Inj) 4 mg Q6H PRN IVP NAUSEA OR VOMITING; Start at 18:30 Prochlorperazine (Compazine Supp) 25 mg Q12H PRN RECTAL NAUSEA OR VOMITING; Start 05/29/17 at 18:30 Heparin Sodium (Porcine) (Heparin Inj) 5,000 units Q12H SQ Last administered on 06/03/17at 08:11; Start 05/29/17 at 20:00 Acetaminophen (Tylenol) 650 mg Q6H PRN PO PAIN SCALE 1 TO 2; Start 05/29/17 at 18:30 Oxycodone/ Acetaminophen (Percocet 5-325 Mg) 1 tab Q6H PRN PO PAIN SCALE 3 TO 5; Start 05/29/17 at 18:30 Oxycodone/ Acetaminophen (Percocet 10-325 Mg) 1 tab Q6H PRN PO PAIN SCALE 6 TO 10 Last administered on 06/03/17at 04:20; Start 05/29/17 at 18:30 Morphine Sulfate (Morphine Inj) 2 mg Q3H PRN IV PUSH Pain 3-5; if unable to take PO; Start 05/29/17 at 18:30 Morphine Sulfate (Morphine Inj) 4 mg Q3H PRN IV PUSH Pain 6-10;if unable to take PO; Start 05/29/17 at 19:15 Naloxone HCl (Narcan Inj) 0.4 mg UNSCH PRN IV PUSH SEE LABEL COMMENTS; Start at 18:30; Stop 05/29/17 at 18:50; Status DC Senna/Docusate Sodium (Danyelle-Colace) 1 tab BID PO Last administered on 06/03/17at 08:12; Start 05/29/17 at 21:00 Magnesium Hydroxide (Milk Of Magnesia Liq) 30 ml Q12H PRN PO Mild constipation ; Start 05/29/17 at 18:30; Stop 05/29/17 at 18:50; Status DC Sennosides (Senokot) 17.2 mg Q12H PRN PO Moderate constipation; Start 05/29/17 at 18:30 Bisacodyl (Dulcolax Supp) 10 mg DAILY PRN RECTAL SEVERE CONSITIPATION; Start at 18:30; Stop 05/29/17 at 19:03; Status DC Lactulose (Lactulose Liq) 30 ml DAILY PRN PO SEVERE CONSITIPATION; Start at 18:30 Sodium Chloride 1,000 ml @ 70 mls/hr [id number] IV Last administered on at 05:42; Start 05/29/17 at 20:30 Furosemide (Lasix Inj) 20 mg BID@09,18 IV PUSH Last administered on 05/30/17at 08:45; Start 05/30/17 at 09:00; Stop 05/30/17 at 17:47; Status DC Ceftriaxone Sodium 1000 mg/ Sodium Chloride 100 ml @ 200 mls/hr Q24H IV Last administered on 06/02/17at 17:39; Start 05/30/17 at 17:00 Amlodipine Besylate (Norvasc) 10 mg DAILY PO Last administered on 06/03/17at 08: 12; Start 06/01/17 at 09:00 Metoprolol Tartrate (Lopressor) 50 mg Q12HR PO Last administered on 06/03/17at 08 :12; Start 06/02/17 at 21:00 A/P Problem List: (1) ARF (acute renal failure) ICD Code: N17.9 - Acute kidney failure, unspecified Status: Acute (2) HTN (hypertension) ICD Code: I10 - Essential (primary) hypertension Status: Acute (3) Urinary hesitancy ICD Code: R39.11 - Hesitancy of micturition Status: Acute (4) CHF (congestive heart failure) ICD Code: I50.9 - Heart failure, unspecified Status: Acute Assessment and Plan 1. Fall Patient suffered a mechanical fall Complaining of bilateral hip pain Pelvic x-ray pending PT AND OT 2. Acute kidney injury- SUSPECT CHRONIC KIDNEY DISEASE DUE TO RENAL ULTRASOUND SUGGESTING MEDICAL RENAL DISEASE BUN/creatinine 46/2.98 Baseline unknown Concern for rhabdo given fall, CK pending Gentle IV fluid hydration given lower extremity edema Monitor renal function Consider nephrology consult if renal function does not improve Rhabdomyolysis improved and resolved--numbers were elevated due to renal insufficiency 3. Bilateral lower extremity edema Patient with history of DVT; bilateral ultrasound pending BMP 623, echo pending LASIX BEING HELD Chest x-ray with no signs of volume overload, personally reviewed ACS rule out pending CONSULT VASCULAR REGARDING US OF RIGHT GROIN 4. Hypertension/hyperlipidemia Metoprolol with clonidine when necessary Lipid profile pending MEDS INCREASED FOR HYPERTENSION- NORVASC 5. ? Diabetes mellitus A1c pending- NORMAL SUSPECT NOT A DIABETIC Sliding scale insulin DC Monitor blood glucose DC FEN Renal diet NS at 70 cc/hr Electrolytes: monitor and replete prn Heparin UTI- ROCEPHIN 1 GRAM DAILY AM LABS RENAL FUNCTIONS IMPROVEMENT DC TO SNF IF BED AVAILABLE CLEARED FOR DC BY ALL OTHERS FOLLOW UP NEPHROLOGY Discharge Planning PENDING IMPROVEMENT IN ACTIVITY AND OR KIDNEY FUNCTIONS AM LABS Problem Qualifiers (1) ARF (acute renal failure): Qualified Codes: N17.9 - Acute kidney failure, unspecified (2) HTN (hypertension): Qualified Codes: I10 - Essential (primary) hypertension (3) CHF (congestive heart failure): Qualified Codes: I50.9 - Heart failure, unspecified Hiro Tom DO Jun 03, 2017 10:56
[2017-06-03] MEDS: cefTRIAXone INJ 1,000 MG in SODIUM CHLORIDE 0.9% INJ 100 ML IV SCH (17:30)
[2017-06-04] VITALS: BP 181/86; PULSE 70; RESP 18; TEMP 97.3; O2SAT 94
[2017-06-04] MEDS: cloNIDine HCL 0.1 MG TAB PO PRN (02:41)
[2017-06-04 04:00] VITALS: BP 143/68; PULSE 66; RESP 18; TEMP 98.2; O2SAT 100
[2017-06-04] MEDS: SODIUM CHLOR 0.9% 1000 ML INJ 1,000 ML IV SCH (05:12)
[2017-06-04 08:00] VITALS: BP 171/82; PULSE 72; RESP 17; TEMP 98.6; O2SAT 98
[2017-06-04] MEDS: INSULIN ASPART SUPPLEMENTAL SCALE SQ SCH ×2 (08:00→12:00)
[2017-06-04] MEDS: HEPARIN SODIUM - SQ 10,000 UNITS/ML VIAL SQ SCH (09:04)
[2017-06-04] MEDS: METOPROLOL TARTRATE 50 MG TAB PO SCH (09:05)
[2017-06-04] MEDS: TAMSULOSIN HCL 0.4 MG CAP PO SCH (09:05)
[2017-06-04] MEDS: DOCUSATE SODIUM 50 MG/SENNA 8.6 MG TAB PO SCH (09:05)
[2017-06-04] MEDS: SODIUM CHLORIDE 0.9% FLUSH 10 ML FLUSH IV FLUSH SCH (09:06)
--- NOTE | 2017-06-04 09:39 | HHI.NPPN ---
Subjective General Problems: Anemia Renal Failure: Chronic, Acute History of Present Illness This is an 82-year-old male with a past medical history of hypertension, diabetes mellitus, hyperlipidemia, history of deep vein thrombosis, possible chronic kidney disease, came to the hospital with complaint of leg edema and history of a fall. Nephrology was called to see the patient because of elevated BUN and creatinine. The patient was found to have creatinine of 2.9 on admission and now it is 2.8. He previously had creatinine of 1.2. This was in 2008. The patient denies any known history of renal disease. He was seen by his primary care physician in February and according to him, he was never told that he has any kidney disease. The patient has some prostatic symptoms and he admits that he has some trouble passing the urine for the last 2-3 weeks. He denies any history of dysuria or hematuria, but he has dysuria and hematuria after they tried to put the Scanlon catheter here in the hospital. He has this swelling in the legs, according to him, for the last 2 years,and it has been improving. He fell down 2 days before the admission. Denies any loss of consciousness. According to him, he did not keep his balance and he fell down. He was complaining of some hip pain, but denies taking any nonsteroidal anti- inflammatory drugs at home. Additional Remarks Patient is alert with family at bedside. Feels like he is having a gout episode in right foot. Painful to palpation. (Damaris Sommers) Review of Systems Respiratory Respiratory Remarks Denies any SOB (Damaris Sommers) Cardiovascular Cardiac: Edema Cardiac Remarks Denies any CP (Damaris Sommers) Gastrointestinal GI Remarks Denies any abdominal pain (Damaris Sommers) Musculoskeletal MS: Swelling in Joint MS Remarks right foot (Damaris Sommers) Objective Data Data 06/04/17 06/05/17 19:00 07:00 # Voids 2 Vital Signs Date Time Temp Pulse Resp B/P (MAP) Pulse Ox O2 Delivery O2 Flow Rate FiO2 06/04/17 08:00 98.6 72 17 171/82 (111) 98 06/04/17 04:00 98.2 66 18 143/68 (93) 100 06/04/17 00:00 70 06/04/17 00:00 97.3 70 18 181/86 (117) 94 06/03/17 22:08 94 06/03/17 20:59 75 06/03/17 20:00 97.3 96 18 174/79 (110) 95 06/03/17 16:00 98.3 67 18 139/73 (95) 99 06/03/17 12:00 98.2 66 18 137/66 (89) 97 (Damaris Sommers) -: 06/03/17 0933 06/03/17 0933 Physical Exam General Appearance: No Acute Distress, Comfortable (Damaris Sommers) Pulmonary Resp Exam: Clear Bilaterally, Breath Sounds Equal, No Distress (Damaris Sommers) Cardiology CV Exam: Regular (Damaris Sommers) Gastrointestinal/Abdomen GI Exam: Soft, Non-Tender, Bowel Sounds Present (Damaris oSmmers) Genitourinary Remarks Suprapubic tenderness on palpation (Damaris Sommers) Integumentary Skin Exam: Clear, Warm (Damaris Sommers) Extremeties Extremities Exam: Moderate Edema (Damaris Sommers) Neurologic Neuro Exam: Alert, Awake, Oriented (Damaris Sommers) Psychiatric Psych Exam: Appropriate Responses (Damaris Sommers) Assessment/Plan Discussed Condition With: Patient, Daughter Assessment Summary: ROBINSON/Acute Renal Failure Problem List: (1) ARF (acute renal failure) ICD Codes: N17.9 - Acute kidney failure, unspecified Status: Acute Plan: Acute Kidney injury either because of dehydration or possibility of rhabdomyolysis, and there must be an underlying chronic kidney disease, although he is not aware of it. Significant proteinuria. US of kidney: Has bilateral small and echogenic kidneys. Complements normal, and BARTOLO negative. 24 hr. urine protein is 1.7 gm only. Plan Will need to be followed by nephrology outpatient with advanced kidney disease Continue to avoid nephrotoxins IVF discontinue Anticipate discharge to [facility] possibly today (2) HTN (hypertension) ICD Codes: I10 - Essential (primary) hypertension Status: Acute Plan: Continue home medications (Damaris Sommers) Problem List: (1) ARF (acute renal failure) ICD Codes: N17.9 - Acute kidney failure, unspecified Status: Acute Plan: Acute Kidney injury either because of dehydration or possibility of rhabdomyolysis, and there must be an underlying chronic kidney disease, although he is not aware of it. Significant proteinuria. US of kidney: Has bilateral small and echogenic kidneys. Complements normal, and BARTOLO negative. 24 hr. urine protein is 1.7 gm only. Plan Will need to be followed by nephrology outpatient with advanced kidney disease Continue to avoid nephrotoxins IVF discontinue Anticipate discharge to [facility] possibly today. Patient seen and examined, agree with above. Creatinine is stable at 2.5. For D/C to Rehab, will need Nephrology follow up, in 3-4 weeks. (2) HTN (hypertension) ICD Codes: I10 - Essential (primary) hypertension Status: Acute Plan: Continue home medications (Cale Avery MD) Problem Qualifiers (1) ARF (acute renal failure): Qualified Codes: N17.9 - Acute kidney failure, unspecified (2) HTN (hypertension): Qualified Codes: I10 - Essential (primary) hypertension Damaris Sommers Jun 04, 2017 09:39 Cale Avery MD Jun 04, 2017 19:01
[2017-06-04 11:07] LABS: BICARBONATE 20.5 MEQ/L (21.0-32.0); CALCIUM 8.1 MG/DL (8.5-10.1); CREATININE 2.58 MG/DL (0.60-1.30)
[2017-06-04 12:00] VITALS: BP 158/77; PULSE 65; RESP 18; TEMP 98.3; O2SAT 98
[2017-06-04 16:00] VITALS: BP 123/57; PULSE 68; RESP 18; TEMP 98; O2SAT 93
--- NOTE | 2017-06-04 16:41 | HHI.DS ---
Discharge Summary Admission Date May 29, 2017 at 18:23 Discharge Date: Jun 04, 2017 Admitting Diagnosis ARF, CHF, HTN (1) ARF (acute renal failure) ICD Code: N17.9 - Acute kidney failure, unspecified Status: Acute (2) HTN (hypertension) ICD Code: I10 - Essential (primary) hypertension Status: Acute (3) Urinary hesitancy ICD Code: R39.11 - Hesitancy of micturition Status: Acute (4) CHF (congestive heart failure) ICD Code: I50.9 - Heart failure, unspecified Status: Acute Procedures NONE Brief History - From Admission 82-year-old male with a past medical history significant for hypertension, hyperlipidemia, borderline diabetes mellitus and history of DVT presents to the emergency department for evaluation of a fall. The patient complains of bilateral lower extremity edema for months and is noncompliant with his home medications. Patient denies any history of CHF. The patient reports that he was on the ground for 2-3 hours after his fall. He denies any loss of consciousness. He states he was trying to put on a sock when he lost his balance and fell onto his buttock. He complains of bilateral hip pain. He denies any head trauma. The patient states that he has had increasing fatigue and weakness over the past several months. He has not seen his doctor since February and has been noncompliant with all medication since that time. Patient denies fever/chills. Denies shortness of breath or chest pain. Denies nausea/vomiting/diarrhea. No lateralizing signs/symptoms. He is an extremely poor historian. CBC/BMP: 06/03/17 0933 06/04/17 1014 Significant Findings Laboratory Tests Test 06/02/17 04:25 06/02/17 08:30 06/03/17 09:33 06/04/17 10:14 Red Blood Count 3.75 MIL/MM3 (4.50-5.90) 3.54 MIL/MM3 (4.50-5.90) Hemoglobin 12.0 GM/DL (13.0-17.0) 11.2 GM/DL (13.0-17.0) Hematocrit 34.2 % (39.0-51.0) 31.9 % (39.0-51.0) Monocytes (%) (Auto) 11.3 % (0.0-8.0) 12.7 % (0.0-8.0) Eosinophils (%) (Auto) 4.9 % (0.0-4.0) 4.9 % (0.0-4.0) Blood Urea Nitrogen 52 MG/DL (7-18) 51 MG/DL (7-18) 52 MG/DL (7-18) Creatinine 2.43 MG/DL (0.60-1.30) 2.48 MG/DL (0.60-1.30) 2.58 MG/DL (0.60-1.30) Albumin 2.8 GM/DL (3.4-5.0) 2.6 GM/DL (3.4-5.0) Calcium Level 8.2 MG/DL (8.5-10.1) 7.8 MG/DL (8.5-10.1) 8.1 MG/DL (8.5-10.1) Carbon Dioxide Level 19.8 MEQ/L (21.0-32.0) 20.5 MEQ/L (21.0-32.0) Estimat Glomerular Filtration Rate 31 ML/MIN (>89) 30 ML/MIN (>89) 29 ML/MIN (>89) Urine Total Protein 24 Hour 1494 MG/24HR (0-150) Random Glucose 73 MG/DL (74-106) Total Protein 6.1 GM/DL (6.4-8.2) Imaging Last Impressions Renal Ultrasound 05/31/17 0600 Signed Impressions: Service Date/Time: Wednesday, May 31, 2017 08:16 - CONCLUSION: 1. The kidneys are small and atrophic in appearance with cortical thinning and increased echogenicity characteristic of medical renal disease. 2. No hydronephrosis. 3. Bilateral cysts. Farhat Torres MD Chest X-Ray 05/29/17 1443 Signed Impressions: Service Date/Time: Monday, May 29, 2017 15:07 - CONCLUSION: No acute disease. Kranthi Mcgrath MD Pelvis X-Ray 05/29/17 0000 Signed Impressions: Service Date/Time: Monday, May 29, 2017 20:53 - CONCLUSION: Chronic change. Netsor Sorensen MD Lower Extremity Ultrasound 05/29/17 0000 Signed Impressions: Service Date/Time: Monday, May 29, 2017 22:18 - CONCLUSION: 1. No DVT. 2. 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 This is seen at the anastomosis with a graft. There is color-flow at the orifice of the pseudoaneurysm. The vast majority of the pseudoaneurysm is thrombosed. Nestor Sorensen MD PE at Discharge GENERAL: Cecilia male lying in bed SKIN: Dry, scaly skin covering bilateral lower extremities with chronic skin changes present MIDLINE INCISION FROM CHEST TO UMBILICUS OLD HEALED HEAD: Atraumatic. Normocephalic. No temporal or scalp tenderness. EYES: Pupils equal round and reactive. Extraocular motions intact. No scleral icterus. No injection or drainage. ENT: Nose without bleeding, purulent drainage or septal hematoma. Throat without erythema, tonsillar hypertrophy or exudate. Uvula midline. Airway patent. NECK: Trachea midline. No JVD or lymphadenopathy. Supple, nontender, no meningeal signs. CARDIOVASCULAR: Regular rate and rhythm without murmurs, gallops, or rubs. RESPIRATORY: Clear to auscultation. Breath sounds equal bilaterally. No wheezes , rales, or rhonchi. GASTROINTESTINAL: Abdomen soft, non-tender, nondistended. No hepato-splenomegaly , or palpable masses. No guarding. MUSCULOSKELETAL: 2+ pitting edema in the bilateral lower extremities BRAWNY EDEMA BL LE NEUROLOGICAL: Awake and alert. Cranial nerves II through XII intact. Motor and sensory grossly within normal limits. Normal speech. INSIGHT AND JUDGEMENT ARE GOOD MOOD AND BEHAVIOR ARE APPROPRIATE Pt update on day of discharge The patient denies chest pain or shortness of breath. The patient also denies nausea, vomiting or abdominal pain. Patient has acceptable urine output. Hospital Course Is an 82-year-old male with past medical history significant for hypertension, hyperlipidemia, borderline diabetes mellitus and history of DVT who presented to the emergency department for ventilation after a fall. The patient had been complaining of bilateral extremity edema for months and has been noncompliant with his medications. The patient denied any history of CHF. As per documentation the patient was on the ground for 2-3 hours after his fall. The patient denies any loss of consciousness. The patient was found to have a UTI and started on IV Rocephin. The patient was also noticed to have an elevated creatinine for which nephrology has been consulted and cleared the patient to be discharged with posterior follow-up as an outpatient with nephrology. Any ultrasound was obtained and concordant with medical renal disease. Have some degree of CKD as well. Patient has significant proteinuria. Complements normal , BARTOLO negative. 24-hour urine protein is 1.7 g only. The patient was treated with IV fluids with minimal improvement of creatinine. On day of discharge the patient was noticed to have a severely elevated high blood pressure in the morning. The patient was started on amlodipine 10 mg p.o. daily. The patient had already been on metoprolol 50 mg p.o. twice daily as needed systolic blood pressure prior to discharge in the 150s. Pt Condition on Discharge: Stable Discharge Disposition: Discharge to SNF Discharge Time: > 30 minutes Discharge Instructions DIET: Follow Instructions for: Heart Healthy Diet, Renal Failure Diet Speech Therapy-Diet Recommends: Regular Activities you can perform: Regular-No Restrictions, See Additionl Instruction Other Activity Instructions: OOB with assistance As per Pt instructions Follow up Referrals: Nephrology - 2 Weeks with Cale Avery MD PCP Follow-up - 1 Week with Nestor Lockwood MD Vascular Surgery - 3 Weeks @ Vascular Surgery with Adam Murphy MD New Medications: Cefuroxime (Ceftin) 250 Mg Tab 250 MG PO BID for Infection for 5 Days, #10 TAB Amlodipine (Norvasc) 10 Mg Tab 10 MG PO DAILY for Blood Pressure Management, #30 TAB Clonidine (Catapres) 0.1 Mg Tab 0.1 MG PO Q4H PRN for SBP>160, DBP>90, #120 TAB Metoprolol Tartrate (Metoprolol Tartrate) 25 Mg Tab 25 MG PO Q12HR for Blood Pressure Management, #60 TAB Oxycodone HCl/Acetaminophen (Oxycodone-Acetaminophen 5-325) 5 Mg-325 Mg Tablet 1 TAB PO Q6H PRN for PAIN SCALE 3 TO 5, #60 TAB Sennosides (Senna-Lax) 8.6 Mg Tab 17.2 MG PO Q12H for Constipation, #120 TAB Tamsulosin (Flomax) 0.4 Mg Cap 0.4 MG PO DAILY for Manage Prostate Problems, #30 CAP Prosper Rodriguez MD Jun 04, 2017 16:41
== END 2017-06-04 18:07 | DRG 683 ==
LOC: NEPC 13:30 → NEDA 18:23 → N06B 22:23
PROVIDERS: ADMIT Hospitalist; ATTEND Hospitalist
DX: N17.9 Acute kidney failure, unspecified (principal); I13.0 Hypertensive heart and chronic kidney disease with heart failure and stage 1 through stage 4 chronic kidney disease, or unspecified chronic kidney disease; I72.8 Aneurysm of other specified arteries; I50.9 Heart failure, unspecified; N39.0 Urinary tract infection, site not specified; R31.9 Hematuria, unspecified; D64.9 Anemia, unspecified; E78.5 Hyperlipidemia, unspecified; N18.3 Chronic kidney disease, stage 3 (moderate); W01.0XXA Fall on same level from slipping, tripping and stumbling without subsequent striking against object, initial encounter; M25.551 Pain in right hip; M25.552 Pain in left hip; R30.0 Dysuria; R39.11 Hesitancy of micturition; R80.9 Proteinuria, unspecified; Z95.828 Presence of other vascular implants and grafts; R73.03 Prediabetes; Z86.718 Personal history of other venous thrombosis and embolism; Z79.899 Other long term (current) drug therapy; Z91.14 Patient's other noncompliance with medication regimen
CPT/HCPCS: 71045; 72170; 76775; 80048; 80053; 80061; 81001; 82550; 82552; 82948; 83036; 83735; 83880; 84100; 84157; 84439; 84443; 84484; 85025; 85610; 85730; 86021; 86038; 86160; 87086; 93005; 93306; 93922; 93970; 96374; J0696; J1644; J1940; J7030

== ENCOUNTER 2017-06-28 10:00 | Emergency (ER) | payer MEDICARE, OTHER ==
[~2017-06-28] VITALS: Ht 165.1 cm; Wt 96.8 kg
[~2017-06-28 10:00] MED LIST changes: +AMLO10 PO; +CEFU1TAB18 PO; +CLON.1 PO; -FURO1TAB93 PO; -METO25 PO; +METO25TA3 PO; +OXYC1TAB63 PO; -POTA-243 PO; +SENN187 PO; +TAMS5CAP PO
[2017-06-28 10:11] VITALS: BP 122/58; PULSE 75; RESP 27; TEMP 98.5; O2SAT 100
[2017-06-28 10:25] VITALS: O2SAT 100
--- NOTE | 2017-06-28 11:12 | PD ---
HPI Chief Complaint: Syncope/Near-Syncope Time Seen by Provider: 10:53 Travel History International Travel<30 days: No Contact w/Intl Traveler<30days: No Traveled to known affect area: No History of Present Illness HPI 82-year-old male with a history of hypertension, hyperlipidemia, borderline diabetes, DVT status post thrombectomy. Presents emergency department for evaluation of a syncopal episode that occurred just prior to arrival. Patient arrives by [facility] from his rehab facility after his daughter found him slumped over on the toilet as he was having a bowel movement. Says that he was out of it for 8-10 seconds before he became normal. Denies any falls or head trauma. Denies fever, chills, chest pain, shortness of breath, abdominal pain, dizziness. He has no other complaints today. Patient is actually annoyed by being in the emergency department today. Says he wants to cups of coffee and 2 doughnuts and to go back to his rehab facility. Family says that he is acting normal and does not exhibit any weakness. He normally ambulates with a walker. 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 Denies excessive leg weakness. PFSH Past Medical History AAA: Yes Arthritis: Yes Blood Disorders: No Anxiety: No Depression: No Cancer: No Diabetes: No Endocrine: No Gastrointestinal Disorders: No Genitourinary: No Hypertension: Yes Immune Disorder: No Musculoskeletal: Yes Neurologic: Yes Psychiatric: No Respiratory: No Thyroid Disease: No Past Surgical History Abdominal Aneurysm Repair: Yes Cardiac Surgery: Yes (2000; pt unable to articulate specific type of cardiac surgery) Social History Alcohol Use: No Tobacco Use: No Substance Use: No Allergies-Medications (Allergen,Severity, Reaction): Coded Allergies: No Known Allergies (Verified , 02/13/09) Reported Meds & Prescriptions Reported Meds & Active Scripts Active Ceftin (Cefuroxime Axetil) 250 Mg Tab 250 Mg PO BID 5 Days Senna-Lax (Sennosides) 8.6 Mg Tab 17.2 Mg PO Q12H Oxycodone-Acetaminophen 5-325 (Oxycodone HCl/Acetaminophen) 5 Mg-325 Mg Tablet 1 Tab PO Q6H PRN Norvasc (Amlodipine Besylate) 10 Mg Tab 10 Mg PO DAILY Metoprolol Tartrate 25 Mg Tab 25 Mg PO Q12HR Catapres (Clonidine) 0.1 Mg Tab 0.1 Mg PO Q4H PRN Flomax (Tamsulosin HCl) 0.4 Mg Cap 0.4 Mg PO DAILY Review of Systems Except as stated in HPI: all other systems reviewed are Neg Physical Exam Narrative GENERAL: Well-developed well-nourished in no apparent distress, pleasant SKIN: Focused skin assessment warm/dry. HEAD: Atraumatic. Normocephalic. EYES: Pupils equal and round. No scleral icterus. No injection or drainage. ENT: No nasal bleeding or discharge. Mucous membranes pink and moist. NECK: Trachea midline. No JVD. No lymphadenopathy CARDIOVASCULAR: Regular rate and rhythm. No murmur appreciated. RESPIRATORY: No accessory muscle use. Clear to auscultation. Breath sounds equal bilaterally. GASTROINTESTINAL: Abdomen soft, non-tender, nondistended. No CVAT MUSCULOSKELETAL: No obvious deformities. No clubbing. No cyanosis. Bilateral lower extremities-mild edema, normal per pt NEUROLOGICAL: Awake and alert. No obvious cranial nerve deficits. Motor grossly within normal limits. Normal speech. PSYCHIATRIC: Appropriate mood and affect; insight and judgment normal. Data Data Last Documented VS Vital Signs Date Time Temp Pulse Resp B/P (MAP) Pulse Ox O2 Delivery O2 Flow Rate FiO2 06/28/17 11:34 64 18 159/75 (103) 100 Room Air 06/28/17 10:11 98.5 Orders Orders Electrocardiogram (06/28/17 ) Electrocardiogram (06/28/17 11:04) Complete Blood Count With Diff (06/28/17 11:04) Comprehensive Metabolic Panel (06/28/17 11:04) Magnesium (Mg) (06/28/17 11:04) Ckmb (Isoenzyme) Profile (06/28/17 11:04) Troponin I (06/28/17 11:04) Act Partial Throm Time (Ptt) (06/28/17 11:04) Prothrombin Time / Inr (Pt) (06/28/17 11:04) Urinalysis - C+S If Indicated (06/28/17 11:04) Chest, Single Ap (06/28/17 11:04) Ct Brain W/O Iv Contrast(Rout) (06/28/17 11:04) Ecg Monitoring (06/28/17 11:04) Iv Access Insert/Monitor (06/28/17 11:04) Oximetry (06/28/17 11:04) Sodium Chlorid 0.9% 500 Ml Inj (Ns 500 M (06/28/17 11:15) CKMB (06/28/17 11:05) CKMB% (06/28/17 11:05) Ed Discharge Order (06/28/17 13:02) Labs Laboratory Tests Test 06/28/17 11:05 06/28/17 12:10 White Blood Count 6.5 TH/MM3 Red Blood Count 3.50 MIL/MM3 Hemoglobin 11.0 GM/DL Hematocrit 31.7 % Mean Corpuscular Volume 90.5 FL Mean Corpuscular Hemoglobin 31.3 PG Mean Corpuscular Hemoglobin Concent 34.5 % Red Cell Distribution Width 14.0 % Platelet Count 206 TH/MM3 Mean Platelet Volume 8.7 FL Neutrophils (%) (Auto) 64.6 % Lymphocytes (%) (Auto) 20.3 % Monocytes (%) (Auto) 11.5 % Eosinophils (%) (Auto) 2.4 % Basophils (%) (Auto) 1.2 % Neutrophils # (Auto) 4.2 TH/MM3 Lymphocytes # (Auto) 1.3 TH/MM3 Monocytes # (Auto) 0.8 TH/MM3 Eosinophils # (Auto) 0.2 TH/MM3 Basophils # (Auto) 0.1 TH/MM3 CBC Comment DIFF FINAL Differential Comment Prothrombin Time 11.4 SEC Prothromb Time International Ratio 1.1 RATIO Activated Partial Thromboplast Time 28.3 SEC Blood Urea Nitrogen 39 MG/DL Creatinine 2.57 MG/DL Random Glucose 87 MG/DL Total Protein 6.5 GM/DL Albumin 3.0 GM/DL Calcium Level 8.0 MG/DL Magnesium Level 1.9 MG/DL Alkaline Phosphatase 84 U/L Aspartate Amino Transf (AST/SGOT) 49 U/L Alanine Aminotransferase (ALT/SGPT) 27 U/L Total Bilirubin 0.8 MG/DL Sodium Level 141 MEQ/L Potassium Level 4.1 MEQ/L Chloride Level 108 MEQ/L Carbon Dioxide Level 21.7 MEQ/L Anion Gap 11 MEQ/L Estimat Glomerular Filtration Rate 29 ML/MIN Total Creatine Kinase 571 U/L Creatine Kinase MB 6.0 NG/ML Creatine Kinase MB % 1.1 % Troponin I 0.05 NG/ML Urine Color YELLOW Urine Turbidity CLEAR Urine pH 5.5 Urine Specific [place] 1.011 Urine Protein 100 mg/dL Urine Glucose (UA) NEG mg/dL Urine Ketones NEG mg/dL Urine Occult Blood SMALL Urine Nitrite NEG Urine Bilirubin NEG Urine Urobilinogen LESS THAN 2.0 MG/DL Urine Leukocyte Esterase NEG Urine RBC 7 /hpf Urine WBC 1 /hpf Urine Squamous Epithelial Cells <1 /hpf Urine Hyaline Casts 2 /lpf Urine Mucus FEW /lpf Microscopic Urinalysis Comment CULT NOT INDICATED MDM Medical Decision Making Medical Screen Exam Complete: Yes Emergency Medical Condition: Yes Differential Diagnosis Vasovagal syncope, hypoglycemia, TIA, malingering, dehydration Narrative Course 82-year-old male with a history of hypertension, hyperlipidemia, borderline diabetes, DVT status post thrombectomy. Presents emergency department for evaluation of a syncopal episode that occurred just prior to arrival. Patient arrives by [facility] from his rehab facility after his daughter found him slumped over on the toilet as he was having a bowel movement. Says that he was out of it for 8-10 seconds before he became normal. Denies any falls or head trauma. Denies fever, chills, chest pain, shortness of breath, abdominal pain, dizziness. He has no other complaints today. Patient is actually annoyed by being in the emergency department today. Says he wants to cups of coffee and 2 doughnuts and to go back to his rehab facility. Family says that he is acting normal and does not exhibit any weakness. He normally ambulates with a walker. 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 Denies excessive leg weakness. I spoke with the daughter who states that she was concerned as patient had one other episode this week of vasovagal syncope. Says that the rehab facility may not be giving the patient enough fluids or food which may be the cause of the symptoms. Vital signs are stable. Labs and imaging studies ordered. EKG shows sinus arrhythmia without STEMI changes. 500cc NS IVF administered. Last Impressions Head CT 06/28/17 1104 Signed Impressions: Service Date/Time: Wednesday, June 28, 2017 11:22 - CONCLUSION: 1. Moderate periventricular and subcortical white matter small vessel ischemic changes bilaterally. 2. 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 3. 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 4. Diffuse cerebral atrophy. 5. No acute infarct, acute hemorrhage, midline shift or extra-axial fluid collections. Adam Burt MD Chest X-Ray 06/28/17 1104 Signed Impressions: Service Date/Time: Wednesday, June 28, 2017 11:08 - CONCLUSION: No acute cardiopulmonary disease. Adam Burt MD CBC & BMP Diagram 06/28/17 11:05 Total Protein 6.5, Albumin 3.0 L, Calcium Level 8.0 L, Magnesium Level 1.9, Alkaline Phosphatase 84, Aspartate Amino Transf (AST/SGOT) 49 H, Alanine Aminotransferase (ALT/SGPT) 27, Total Bilirubin 0.8 Total CK 571, CK-MB 6.0, CK-MB percent 1.1. Troponin 0.05. UA noncontributory. I discussed this case with my attending, Dr. Horner. please see his note as well regarding this patient. History and physical most consistent with vasovagal syncope. Patient will be discharged back to his rehab facility. Advised to use caution when straining with bowel movements. Advised that he should have adequate nutrition and proper fluid intake to reduce repeated events. Advised that if he feels dizzy or lightheaded that he should sit immediately to avoid falls. Diagnosis Primary Impression: Vasovagal syncope Referrals: Primary Care Physician Patient Instructions: General Instructions, Hypotension (ED) Additional Instructions: Avoid excessive pressure with bowel movements. If you feel weak or dizzy sit down immediately to avoid falling. Ensure adequate fluid and proper nutrition. Follow-up with a specialist as discussed. Disposition: 01 DISCHARGE HOME Condition: Stable Sheila Juárez Jun 28, 2017 11:12
[2017-06-28] MEDS ORDERED: SODIUM CHLORID 0.9% 500 ML INJ 500 ML IV ONE (11:15)
[2017-06-28 11:29] LABS: AUTOMATED NEUTROPHIL # 4.2 TH/MM3 (1.8-7.7); BASOPHIL # 0.1 TH/MM3 (0-0.2); BASOPHIL % 1.2 % (0.0-2.0); EOSINOPHIL # 0.2 TH/MM3 (0-0.4); EOSINOPHIL % 2.4 % (0.0-4.0); HEMATOCRIT 31.7 % (39.0-51.0); LYMPH % 20.3 % (9.0-44.0); LYMPHOCYTE # 1.3 TH/MM3 (1.0-4.8); MEAN CELL VOLUME 90.5 FL (80.0-100.0); MEAN CORPUSCULAR HEMOGLOBIN 31.3 PG (27.0-34.0); MEAN CORPUSCULAR HGB CONC 34.5 % (32.0-36.0); MEAN PLATELET VOLUME 8.7 FL (7.0-11.0); MONO % 11.5 % (0.0-8.0); MONOCYTE # 0.8 TH/MM3 (0-0.9); NEUT % 64.6 % (16.0-70.0); PLATELET COUNT 206 TH/MM3 (150-450); WHITE BLOOD COUNT 6.5 TH/MM3 (4.0-11.0)
[2017-06-28 11:34] VITALS: BP 159/75; PULSE 64; RESP 18; O2SAT 100
[2017-06-28 11:36] LABS: INTERNATIONAL NORMALIZED RATIO 1.1 RATIO; PROTHROMBIN TIME - PATIENT 11.4 SEC (9.8-11.6)
--- NOTE | 2017-06-28 11:37 | RADRPT ---
EXAM DATE/TIME: 06/28/2017 11:22 [facility] COMPARISON: No previous studies available for comparison. INDICATIONS : Dizziness, low blood pressure RADIATION DOSE: 32.09 CTDIvol (mGy) MEDICAL HISTORY : Hypertension. Cardiovascular disease SURGICAL HISTORY : Abdominal aortic aneurysm repair. ENCOUNTER: Initial ACUITY: 1 day PAIN SCALE: 0/10 LOCATION: cranial TECHNIQUE: Multiple contiguous axial images were obtained of the head. Using automated exposure control and adj ustment of the mA and/or kV according to patient size, radiation dose was kept as low as reasonably a chievable to obtain optimal diagnostic quality images. DICOM format image data is available electro nically for review and comparison. FINDINGS: CEREBRUM: Diffuse cerebral atrophy is noted. Moderate periventricular and subcortical white matter small vessel ischemic changes are noted bilaterally. Old tiny lacunar infarcts are noted within the left basal ga nglia. No evidence of midline shift, mass lesion, hemorrhage or acute infarction. No extra-axial flu id collections are seen. POSTERIOR FOSSA: An old infarct is noted involving the right cerebellum. The brainstem is intact. The 4th ventricle i s midline. The cerebellopontine angle is unremarkable. EXTRACRANIAL: The visualized portion of the orbits is intact. SKULL: The calvaria is intact. No evidence of skull fracture. CONCLUSION: 1. Moderate periventricular and subcortical white matter small vessel ischemic changes bilaterally. 2. 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 3. 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 4. Diffuse cerebral atrophy. 5. No acute infarct, acute hemorrhage, midline shift or extra-axial fluid collections. Adam Burt MD on June 28, 2017 at 11:32 Board Certified Radiologist. This report was verified electronically.
[2017-06-28 11:44] LABS: ALT (GPT) 27 U/L (12-78); AST (GOT) 49 U/L (15-37); BICARBONATE 21.7 MEQ/L (21.0-32.0); BLOOD UREA NITROGEN 39 MG/DL (7-18); CHLORIDE 108 MEQ/L (98-107); CREATININE 2.57 MG/DL (0.60-1.30); GLOMERULAR FILTRATION RATE 29 ML/MIN (>89); GLUCOSE,RANDOM 87 MG/DL (74-106); MAGNESIUM 1.9 MG/DL (1.5-2.5); SODIUM (NA) 141 MEQ/L (136-145)
--- NOTE | 2017-06-28 11:44 | RADRPT ---
EXAM DATE/TIME: 06/28/2017 11:08 [facility] COMPARISON: CHEST SINGLE AP, May 29, 2017, 15:07. INDICATIONS : Short of breath after syncopal episode. MEDICAL HISTORY : Hypertension. SURGICAL HISTORY : Aortic leak repair ENCOUNTER: Initial ACUITY: 1 week PAIN SCORE: 8/10 LOCATION: Bilateral chest FINDINGS: Median sternotomy wires are noted status post cardiac surgery. The heart is stable. The pulmonary vas cular pattern is normal. The lungs are clear. Degenerative changes are noted throughout the thoracic spine. Degenerative changes are also noted involving the shoulders bilaterally CONCLUSION: No acute cardiopulmonary disease. Adam Burt MD on June 28, 2017 at 11:41 Board Certified Radiologist. This report was verified electronically.
[2017-06-28 11:48] LABS: ALKALINE PHOSPHATASE 84 U/L (45-117); TOTAL BILIRUBIN ADULT 0.8 MG/DL (0.2-1.0); TOTAL PROTEIN 6.5 GM/DL (6.4-8.2); TROPONIN I 0.05 NG/ML (0.02-0.05)
[2017-06-28 12:42] LABS: BILIRUBIN, URINE NEG (NEG); BLOOD, URINE SMALL (NEG); GLUCOSE,URINE NEG (NEG); HYALINE CAST, URINE 2 /lpf (RARE); KETONE, URINE NEG (NEG); MUCUS URINE FEW /lpf (OCC); NITRITE,URINE NEG (NEG); PH, URINE 5.5 (5.0-8.5); SQUAMOUS EPITHELIAL CELL URINE <1 /hpf (0-5); URINE COLOR YELLOW (YELLW/STRAW); URINE LEUKOCYTE ESTERASE NEG (NEG)
--- NOTE | 2017-06-28 13:05 | PD ---
Data Data Last Documented VS Vital Signs Date Time Temp Pulse Resp B/P (MAP) Pulse Ox O2 Delivery O2 Flow Rate FiO2 06/28/17 11:34 64 18 159/75 (103) 100 Room Air 06/28/17 10:11 98.5 Orders Orders Electrocardiogram (06/28/17 ) Electrocardiogram (06/28/17 11:04) Complete Blood Count With Diff (06/28/17 11:04) Comprehensive Metabolic Panel (06/28/17 11:04) Magnesium (Mg) (06/28/17 11:04) Ckmb (Isoenzyme) Profile (06/28/17 11:04) Troponin I (06/28/17 11:04) Act Partial Throm Time (Ptt) (06/28/17 11:04) Prothrombin Time / Inr (Pt) (06/28/17 11:04) Urinalysis - C+S If Indicated (06/28/17 11:04) Chest, Single Ap (06/28/17 11:04) Ct Brain W/O Iv Contrast(Rout) (06/28/17 11:04) Ecg Monitoring (06/28/17 11:04) Iv Access Insert/Monitor (06/28/17 11:04) Oximetry (06/28/17 11:04) Sodium Chlorid 0.9% 500 Ml Inj (Ns 500 M (06/28/17 11:15) CKMB (06/28/17 11:05) CKMB% (06/28/17 11:05) Ed Discharge Order (06/28/17 13:02) Labs Laboratory Tests Test 06/28/17 11:05 06/28/17 12:10 White Blood Count 6.5 TH/MM3 Red Blood Count 3.50 MIL/MM3 Hemoglobin 11.0 GM/DL Hematocrit 31.7 % Mean Corpuscular Volume 90.5 FL Mean Corpuscular Hemoglobin 31.3 PG Mean Corpuscular Hemoglobin Concent 34.5 % Red Cell Distribution Width 14.0 % Platelet Count 206 TH/MM3 Mean Platelet Volume 8.7 FL Neutrophils (%) (Auto) 64.6 % Lymphocytes (%) (Auto) 20.3 % Monocytes (%) (Auto) 11.5 % Eosinophils (%) (Auto) 2.4 % Basophils (%) (Auto) 1.2 % Neutrophils # (Auto) 4.2 TH/MM3 Lymphocytes # (Auto) 1.3 TH/MM3 Monocytes # (Auto) 0.8 TH/MM3 Eosinophils # (Auto) 0.2 TH/MM3 Basophils # (Auto) 0.1 TH/MM3 CBC Comment DIFF FINAL Differential Comment Prothrombin Time 11.4 SEC Prothromb Time International Ratio 1.1 RATIO Activated Partial Thromboplast Time 28.3 SEC Blood Urea Nitrogen 39 MG/DL Creatinine 2.57 MG/DL Random Glucose 87 MG/DL Total Protein 6.5 GM/DL Albumin 3.0 GM/DL Calcium Level 8.0 MG/DL Magnesium Level 1.9 MG/DL Alkaline Phosphatase 84 U/L Aspartate Amino Transf (AST/SGOT) 49 U/L Alanine Aminotransferase (ALT/SGPT) 27 U/L Total Bilirubin 0.8 MG/DL Sodium Level 141 MEQ/L Potassium Level 4.1 MEQ/L Chloride Level 108 MEQ/L Carbon Dioxide Level 21.7 MEQ/L Anion Gap 11 MEQ/L Estimat Glomerular Filtration Rate 29 ML/MIN Total Creatine Kinase 571 U/L Creatine Kinase MB 6.0 NG/ML Creatine Kinase MB % 1.1 % Troponin I 0.05 NG/ML Urine Color YELLOW Urine Turbidity CLEAR Urine pH 5.5 Urine Specific [place] 1.011 Urine Protein 100 mg/dL Urine Glucose (UA) NEG mg/dL Urine Ketones NEG mg/dL Urine Occult Blood SMALL Urine Nitrite NEG Urine Bilirubin NEG Urine Urobilinogen LESS THAN 2.0 MG/DL Urine Leukocyte Esterase NEG Urine RBC 7 /hpf Urine WBC 1 /hpf Urine Squamous Epithelial Cells <1 /hpf Urine Hyaline Casts 2 /lpf Urine Mucus FEW /lpf Microscopic Urinalysis Comment CULT NOT INDICATED [facility] Supervised Visit with [facility]: Yes Narrative Course I, Dr. Horner, have reviewed the advance practice practitioner's documentation and am in agreement, met with the patient face to face, made the diagnosis, and the medical decision making was done by me. *My assessment and Findings: I have evaluated the patient. He had a syncopal episode while straining to have a bowel movement. Workup here is negative for acute problems. He has known chronic renal insufficiency. At this point he feels well. Stable for outpatient follow-up Diagnosis Primary Impression: Vasovagal syncope Referrals: Primary Care Physician Additional Instruction: Avoid excessive pressure with bowel movements. If you feel weak or dizzy sit down immediately to avoid falling. Ensure adequate fluid and proper nutrition. Follow-up with a specialist as discussed. Disposition: 01 DISCHARGE HOME Condition: Stable Qasim Horner MD Jun 28, 2017 13:05
[2017-06-28 13:18] VITALS: BP 162/72
--- NOTE | 2017-06-28 13:43 | EKG ---
Date Performed: 06/28/2017 Time Performed: 10:32:36 PTAGE: 82 years EKG: Sinus rhythm WITH FREQUENT SUPRAVENTRICULAR PREMATURE COMPLEXES POSSIBLE LEFT ATRIAL ENLARGEMENT INCOMPLETE RIGHT BUNDLE BRANCH BLOCK POSSIBLE LEFT VENTRICULAR HYPERTROPHY NONSPECIFIC T-WAVE ABNORMALITY ABNORMAL EC G PREVIOUS TRACING : 06/01/2017 05.01 Since the previous tracing, no significant change noted DOCTOR: Rolan Ramirez Interpretating Date/Time 06/28/2017 13:42:06
== END 2017-06-28 14:24 | disposition home or self-care (01) ==
LOC: NEPC 10:00
DX: R55 Syncope and collapse (principal)
CPT/HCPCS: 70450; 71045; 80053; 81001; 82550; 82552; 83735; 84484; 85025; 85610; 85730; 93005; 99285; J7040

== ENCOUNTER 2018-02-06 18:57 | Inpatient (IN) ==
--- NOTE | 2018-02-06 20:01 | ED ---
HPI General Chief complaint: Weakness Stated complaint: weakness/evac Time Seen by Provider: 02/06/18 19:47 Source: patient and family Mode of arrival: EMS Limitations: no limitations (It is not clear whether the patient is fully alert and oriented, but he is definitely a poor historian) History of Present Illness HPI Narrative: Patient is a poor historian, and is unable to provide me with any history. Once his son arrived they provided some additional history, in particular that he was at [facility] for right pinky toe fracture required procedure and stitches and he was placed on Keflex to avoid infection. Patient himself denies any complaints. But the son states that he is very weak, not able to ambulate on his own even with assistance. MD Complaint: Reports generalized weakness Onset (ago): week(s) (2) Duration: progressively worsening Location: Reports generalized Migration: Reports none Relieving factors: none Exacerbating factors: none Associated symptoms: Reports denies other symptoms Related Data Home Medications Medication Instructions Recorded Confirmed amlodipine 5 mg PO HS 02/06/18 02/06/18 bethanechol chloride 15 mg PO QID 02/06/18 02/06/18 bumetanide 2 mg PO DAILY 02/06/18 02/06/18 cholecalciferol (vitamin D3) 1,000 unit PO DAILY 02/06/18 02/06/18 [Vitamin D3] cilostazol 100 mg PO BID 02/06/18 02/06/18 ferrous sulfate [High Potency Iron] 27 mg PO DAILY 02/06/18 02/06/18 losartan 25 mg PO DAILY 02/06/18 02/06/18 metoprolol tartrate 25 mg PO HS 02/06/18 02/06/18 vjqtfxliqcga-dsmz-wnxxk acid 1 tab PO DAILY 02/06/18 02/06/18 [Centrum] tamsulosin 0.4 mg PO DAILY 02/06/18 02/06/18 Allergies Allergy/AdvReac Type Severity Reaction Status Date / Time No Known Allergies Uncoded 02/13/09 21:12 Review of Systems ROS: all other systems reviewed are negative PMFSH History History Provided By: Patient Medical History Medical History Medical history unknown (Acute) Surgical history unknown (Acute) Social History Social History Substance History: No History of Abuse Smoking Status: Former smoker How Often Do You Have a Drink Containing Alcohol: Monthly or less Recent Travel in [place] within the Last 8 Weeks: No Recent Out of Country Travel within the Last 8 Weeks: No Exam Narrative Exam Narrative: GENERAL: -[place] male in no apparent distress. SKIN: Warm and dry. HEAD: Atraumatic. Normocephalic. EYES: Pupils equal and round. No scleral icterus. No injection or drainage. ENT: No nasal bleeding or discharge. Mucous membranes pink and moist. NECK: Trachea midline. No JVD. CARDIOVASCULAR: Tachycardic rate, irregularly irregular rhythm . no rubs or gallops RESPIRATORY: No accessory muscle use. Rhonchi appreciated bilateral lung field . Breath sounds equal bilaterally. GASTROINTESTINAL: Abdomen soft, non-tender, nondistended. No rebound or guarding MUSCULOSKELETAL: Extremities without clubbing, cyanosis, or edema. No obvious deformities. However right lower extremity stitches over right fifth digit, there is tree bark appearance of the skin all over his right foot which peeled off partially when removing the dressing NEUROLOGICAL: Awake and alert. No obvious cranial nerve deficits. Motor grossly within normal limits. Four out of 5 muscle strength in the arms and legs. Normal speech. PSYCHIATRIC: Appropriate mood and affect; insight and judgment normal. Course Initial Documented Vital Signs Temperature 98.0 F 02/06/18 19:39 Pulse Rate 103 H 02/06/18 19:39 Respiratory Rate 23 02/06/18 19:39 Blood Pressure 179/89 H 02/06/18 19:39 Pulse Oximetry 100 02/06/18 19:39 Last Documented Vital Signs Temperature 98.0 F 02/06/18 19:39 Pulse Rate 88 02/06/18 21:14 Respiratory Rate 17 02/06/18 21:14 Blood Pressure 173/86 H 02/06/18 21:14 Pulse Oximetry 100 02/06/18 21:14 Medical Decision Making MDM Narrative Medical decision making narrative: acute on chronic renal failure new onset afib with rvr now controlled rate hypertensive urgency chronic anemia rt foot ?? Medical Screen Exam Complete: Yes Emergency Medical Condition: Yes Medical Records Medical records reviewed: Yes I reviewed the patient's medical records. Lab Data Lab results reviewed: Yes I reviewed the patient's lab results. Result diagrams: 02/06/18 19:15 02/06/18 19:15 Lab Results 02/06/18 02/06/18 02/06/18 Range/Units 19:15 19:15 19:45 WBC 10.1 (4.0-11.0) th/mm3 RBC 3.02 L (4.50-5.90) mil/mm3 Hgb 9.8 L (13.0-17.0) gm/dL Hct 27.8 L (39.0-51.0) % MCV 91.9 (80.0-100.0) fL MCH 32.3 (27.0-34.0) pg MCHC 35.1 (32.0-36.0) % RDW 13.5 (11.6-17.2) % Plt Count 413 (150-450) th/mm3 MPV 6.9 L (7.0-11.0) fL Neut % (Auto) 80.6 H (16.0-70.0) % Lymph % (Auto) 6.9 L (9.0-44.0) % [place] % (Auto) 10.5 H (0.0-8.0) % Eos % (Auto) 1.5 (0.0-4.0) % Baso % (Auto) 0.5 (0.0-2.0) % Neut # (Auto) 8.1 H (1.8-7.7) th/mm3 Lymph # (Auto) 0.7 L (1.0-4.8) th/mm3 [place] # (Auto) 1.1 H (0.0-0.9) th/mm3 Eos # (Auto) 0.2 (0.0-0.4) th/mm3 Baso # (Auto) 0.0 (0.0-0.2) th/mm3 WBC Differential . Differential Comment Auto diff final Sodium 133 L (136-145) meq/L Potassium 4.3 (3.5-5.1) meq/L Chloride 99 (98-107) meq/L Carbon Dioxide 23.0 (21.0-32.0) meq/L Anion Gap 11 (5-15) meq/L BUN 55 H (7-18) mg/dL Creatinine 2.94 H (0.60-1.30) mg/dL Estimated GFR 25 L (>89) mL/min Random Glucose 133 H (74-106) mg/dL Lactic Acid 1.7 (0.4-2.0) mmol/L Calcium 8.3 L (8.5-10.1) mg/dL Total Bilirubin 0.9 (0.2-1.0) mg/dL AST 32 (15-37) U/L ALT 53 (12-78) U/L Alkaline Phosphatase 213 H (45-117) U/L Total Creatine Kinase 208 (39-308) U/L Troponin I 0.04 (0.02-0.05) ng/mL Total Protein 7.5 (6.4-8.2) g/dL Albumin 2.6 L (3.4-5.0) g/dL TSH 1.390 (0.358-3.740) uIU/mL Imaging Data Attestation: I personally reviewed and interpreted this imaging study as follows : Radiologist's impression: Chest X-Ray 02/06/18 19:47 CONCLUSION: No evidence of acute cardiopulmonary disease. Head CT 02/06/18 19:47 CONCLUSION: 1. No acute intracranial abnormalities. Chronic white matter ischemic changes. Remote lacunar infarct right cerebellar hemisphere. . ECG Data EKG Prior to Arrival: No Attestation: I personally reviewed and interpreted this ECG as follows: Prior ECG tracings: not available for review Interpretation: A. fib with mild RVR around 105 (new onset) Discharge Plan Discharge Disposition Patient Disposition: ED Admit(ED Internal Use Only) Discharge Condition Condition: Fair Discharge Details Diagnosis: Atrial fibrillation with RVR Physicians Team ED Provider: Ranjit Curtis Primary Care Provider: Deion Mcnair Rxs /Orders / Referrals /Forms Prescriptions: No Action cilostazol 100 mg Tablet 100 mg PO BID RF: 0 bumetanide 2 mg Tablet 2 mg PO DAILY RF: 0 amlodipine 5 mg Tablet 5 mg PO HS RF: 0 bethanechol chloride 25 mg Tablet 15 mg PO QID RF: 0 tamsulosin 0.4 mg Capsule 0.4 mg PO DAILY RF: 0 losartan 25 mg Tablet 25 mg PO DAILY RF: 0 cholecalciferol (vitamin D3) [Vitamin D3] 1,000 unit Capsule 1,000 unit PO DAILY RF: 0 metoprolol tartrate 25 mg Tablet 25 mg PO HS RF: 0 ferrous sulfate [High Potency Iron] 27 mg iron Tablet 27 mg PO DAILY RF: 0 ykxelixdpise-grcj-isdvy acid [Centrum] 18-400 mg-mcg Tablet 1 tab PO DAILY RF: 0 Discharge Interventions Interventions: Vital Signs Last Done: 02/06/18 21:14 Status ED Status: With Doctor
[2018-02-06] MEDS: Metoprolol Inj 5 MG/5 ML Vial IV.PUSH SCH ×3 (20:15→22:00)
[2018-02-06 20:17] LABS: Baso % (Auto) 0.5 % (0.0-2.0); Eos # (Auto) 0.2 th/mm3 (0.0-0.4); Eos % (Auto) 1.5 % (0.0-4.0); Hematocrit 27.8 % (39.0-51.0); Hemoglobin 9.8 gm/dL (13.0-17.0); Lymph # (Auto) 0.7 th/mm3 (1.0-4.8); Lymph % (Auto) 6.9 % (9.0-44.0); Mean Corpuscular HGB Conc 35.1 % (32.0-36.0); Mean Corpuscular Hemoglobin 32.3 pg (27.0-34.0); Mean Corpuscular Volume 91.9 fL (80.0-100.0); Mean Platelet Volume 6.9 fL (7.0-11.0); Mono # (Auto) 1.1 th/mm3 (0.0-0.9); Mono % (Auto) 10.5 % (0.0-8.0); Neut # (Auto) 8.1 th/mm3 (1.8-7.7); Neut % (Auto) 80.6 % (16.0-70.0); Platelet Count 413 th/mm3 (150-450); Red Blood Count 3.02 mil/mm3 (4.50-5.90); Red Cell Distribution Width 13.5 % (11.6-17.2); White Blood Count 10.1 th/mm3 (4.0-11.0)
--- NOTE | 2018-02-06 20:19 | XR ---
EXAM DATE: 02/06/2018 8:13 PM EST AGE/SEX: 82 years / Male INDICATIONS: Evaluate for pneumonia CLINICAL DATA: This is the patient's initial encounter. Patient reports that signs and symptoms have been present for 1 day and indicates a pain score of 0/10. MEDICAL/SURGICAL HISTORY: . Abdominal aortic aneurysm repair. . Cardiac surgery. Orthopedic surgery COMPARISON: [facility] [place], 06/28/[place]. . FINDINGS: A single AP view of the chest demonstrates the lungs to be symmetrically aerated without evidence of mass, infiltrate or effusion. The cardiomediastinal contours are unremarkable. Osseous structures a re intact. Median sternotomy changes are again noted. Thoracic aorta is tortuous. CONCLUSION: No evidence of acute cardiopulmonary disease. Electronically signed by: Nestor Watkins MD 02/06/2018 8:17 PM EST
[2018-02-06 20:34] LABS: Albumin 2.6 g/dL (3.4-5.0); Anion Gap 11 meq/L (5-15); Aspartate Aminotransferase 32 U/L (15-37); Blood Urea Nitrogen 55 mg/dL (7-18); Calcium 8.3 mg/dL (8.5-10.1); Chloride 99 meq/L (98-107); Glomerular Filtration Rate 25 mL/min (>89); Glucose,Random 133 mg/dL (74-106); Potassium 4.3 meq/L (3.5-5.1); Sodium 133 meq/L (136-145)
[2018-02-06 20:35] LABS: Alanine Aminotransferase 53 U/L (12-78)
[2018-02-06 20:44] LABS: Alkaline Phosphatase 213 U/L (45-117); Creatine Kinase 208 U/L (39-308); Total Protein 7.5 g/dL (6.4-8.2); Troponin I 0.04 ng/mL (0.02-0.05)
--- NOTE | 2018-02-06 21:27 | CT ---
EXAM DATE: 02/06/2018 9:20 PM EST AGE/SEX: 82 years / Male INDICATIONS: Altered mental status. CLINICAL DATA: This is the patient's initial encounter. Patient reports that signs and symptoms have been present for 1 day and indicates a pain score of 0/10. MEDICAL/SURGICAL HISTORY: None. None. RADIATION DOSE: 56.35 CTDI (mGy) COMPARISON: No prior exams available for comparison. TECHNIQUE: CT of the head without contrast. Using automated exposure control and adjustment of the mA and/or kV according to patient size, radiation dose was kept as low as reasonably achievable to ob tain optimal diagnostic quality images. DICOM format image data is available electronically for revi ew and comparison. FINDINGS: Cerebrum: The ventricles are normal for age. No evidence of midline shift, mass lesion, hemorrhage or acute infarction. No extraaxial fluid collections are seen. Chronic white matter ischemic changes . Posterior Fossa: Small remote infarct right cerebellar hemisphere. The 4th ventricle is midline. Th e cerebellopontine angle is unremarkable. Extracranial: The visualized portion of the orbits is intact. Skull: The calvaria is intact. No evidence of skull fracture. CONCLUSION: 1. No acute intracranial abnormalities. Chronic white matter ischemic changes. Remote lacunar infarc t right cerebellar hemisphere. . Electronically signed by: Tahir Richards MD 02/06/2018 9:25 PM EST
[2018-02-06] MEDS ORDERED: hydrALAZINE HCl Inj 20 MG/ML Vial IV.PUSH ONE (22:42)
[2018-02-06] MEDS ORDERED: Bisacodyl 10 MG Supp RECTAL PRN (22:49)
[2018-02-06] MEDS ORDERED: Acetaminophen 325 MG Tablet PO PRN (22:49)
--- NOTE | 2018-02-06 22:53 | P.HPIM ---
History of Present Illness Primary Care Physician: Deion Mcnair MD History of Present Illness: This is an 82-year-old male with a PMH of HTN and CKD Stage IV who was brought to the ER from PCP office by EMS for FTT. Pt is poor historian, unable to provide any detailed history, but denies complaints. Sons at bedside providing history. State pt recently admitted to [facility] approx 1mo ago after fall, underwent surgery for right toe fracture and was placed on antibiotics. Has had progressive decline since then per Sons. Note pt has been intermittently compliant w/ meds, seen by PCP today who was concerned w/ FTT and sent pt to ER. On arrival, noted to be in A. fib with RVR, HR 120-130s, BP 179/89, O2 sat 100% on RA, Afebrile. Hemoglobin 9.8, previously 11.0 on 06/28/2017 INR 1.1. Creatinine 2.94, previously 2.57 on 06/28/2017. CT Head with no acute findings. CXR negative for acute disease. S/p Metoprolol 5mg IV in ER w/ improvement, HR 80-90's. - Diagnosis (1) Atrial fibrillation with RVR (2) HTN (hypertension) (3) CKD (chronic kidney disease) stage 4, GFR 15-29 ml/min (4) Anemia (5) Failure to thrive Review of Systems PAST FAMILY HISTORY: Reviewed. No h/o DM or CAD All other systems reviewed negative except as [facility] - History History Provided By: Patient - Medical History Medical History: Medical History (Last Reviewed 02/06/18 @ 19:59 by Ranjit Curtis) Medical history unknown Surgical history unknown - Tobacco History Smoking Status: Former smoker - Alcohol History How Often Do You Have a Drink Containing Alcohol: Monthly or less - Substance Use History Substance History: No History of Abuse - Travel History Recent Travel in the [place] Within the Last 8 Weeks: No Recent Travel Out of the Country Within the Last 8 Weeks: No - Immunization History Tetanus Immunization: <5 Years Medications and Allergies Active Medications: Active Medications Acetaminophen (Tylenol) 650 mg PO Q4H PRN PRN Reason: Temp > 100.4 Al Hydroxide/Mg Hydroxide (Milk Of Magnesia Liq) 30 ml PO Q12H PRN PRN Reason: Mild Constipation Amlodipine Besylate (Norvasc) 5 mg PO HS [facility] Bisacodyl (Dulcolax Supp) 10 mg RECTAL DAILY PRN PRN Reason: SEVERE CONSITIPATION Sodium Chloride (Ns Inj) 1,000 mls @ 100 mls/hr IV.CONT .Q10H [facility] Lactulose (Lactulose Liq) 30 ml PO DAILY PRN PRN Reason: SEVERE CONSITIPATION Metoprolol Tartrate (Lopressor) 25 mg PO HS [facility] Non-Formulary Medication (Bumetanide [Bumetanide]) 2 mg PO DAILY [facility] Non-Formulary Medication (Yfkcuoqbkglx-Anvi-Rftvv Acid [Centrum]) 1 tab PO DAILY [facility] Ondansetron HCl (Zofran Inj) 4 mg IV.PUSH Q6H PRN PRN Reason: NAUSEA OR VOMITING Senna/Docusate Sodium (Danyelle-Colace) 1 tab PO BID [facility] Sennosides (Senokot) 17.2 mg PO Q12H PRN PRN Reason: Moderate Constipation Sodium Chloride (Ns Flush) 2 ml IV.FLUSH PRN PRN PRN Reason: FLUSH AFTER USING IV ACCESS Sodium Chloride (Ns Flush) 2 ml IV.FLUSH BID JORGE Sodium Chloride (Ns Flush) 2 ml IV.FLUSH PRN PRN PRN Reason: FLUSH AFTER USING IV ACCESS Tamsulosin HCl (Flomax) 0.4 mg PO DAILY [facility] Allergies Allergy/AdvReac Type Severity Reaction Status Date / Time No Known Allergies Uncoded 02/13/09 21:12 Home Medications Medication Instructions Recorded Confirmed Type amlodipine 5 mg PO HS 02/06/18 02/06/18 History bethanechol chloride 15 mg PO QID 02/06/18 02/06/18 History bumetanide 2 mg PO DAILY 02/06/18 02/06/18 History cholecalciferol (vitamin D3) 1,000 unit PO DAILY 02/06/18 02/06/18 History [Vitamin D3] cilostazol 100 mg PO BID 02/06/18 02/06/18 History ferrous sulfate [High Potency Iron] 27 mg PO DAILY 02/06/18 02/06/18 History losartan 25 mg PO DAILY 02/06/18 02/06/18 History metoprolol tartrate 25 mg PO HS 02/06/18 02/06/18 History qtdvjdrwgwlb-yhpu-arybq acid 1 tab PO DAILY 02/06/18 02/06/18 History [Centrum] tamsulosin 0.4 mg PO DAILY 02/06/18 02/06/18 History Exam Vital signs: Vital Signs 02/06/18 19:39 02/06/18 21:14 02/06/18 22:44 Temperature 98.0 F Pulse Rate 103 H 88 88 Respiratory Rate 23 17 17 Blood Pressure 179/89 H 173/86 H 182/96 H Pulse Oximetry 100 100 100 Intake & Output 02/06/18 02/06/18 02/07/18 06:59 18:59 06:59 Weight 65.771 kg Narrative: PE: GENERAL: Elderly black male in no acute distress. Sons at bedside. SKIN: Focused skin assessment warm and dry. HEENT: PERRLA, EOMI. No scleral icterus or conjunctival pallor. No lid lag or facial droop. CARDIOVASCULAR: Regular rate and rhythm. No obvious murmurs to auscultation. No chest tenderness to palpation. RESPIRATORY: No obvious rhonchi or wheezing. Clear to auscultation. Breath sounds equal bilaterally. GASTROINTESTINAL: Abdomen soft, non-tender, nondistended. BS normal. MUSCULOSKELETAL: Extremities without clubbing, cyanosis, or edema. No obvious deformities. Bilateral lower extremities w/ chronic changes, sloughing skin, right foot w/ sutures in place 5th toe. NEUROLOGICAL: Awake, alert and oriented x4. No focal neurologic deficits. Moving both upper and lower extremities spontaneously. PSYCHIATRIC: Appropriate mood and affect. Insight and judgment normal. Results - Labs CBC & Chem 7: 02/06/18 19:15 02/06/18 19:15 Labs: Short CBC 02/06/18 Range/Units 19:15 WBC 10.1 (4.0-11.0) th/mm3 Hgb 9.8 L (13.0-17.0) gm/dL Hct 27.8 L (39.0-51.0) % Plt Count 413 (150-450) th/mm3 BMP 02/06/18 19:15 Sodium 133 L Potassium 4.3 Chloride 99 Carbon Dioxide 23.0 BUN 55 H Creatinine 2.94 H Calcium 8.3 L Cardiac Enzymes 02/06/18 Range/Units 19:15 Total Creatine Kinase 208 (39-308) U/L Troponin I 0.04 (0.02-0.05) ng/mL Liver Function 02/06/18 Range/Units 19:15 Total Bilirubin 0.9 (0.2-1.0) mg/dL AST 32 (15-37) U/L ALT 53 (12-78) U/L Alkaline Phosphatase 213 H (45-117) U/L Albumin 2.6 L (3.4-5.0) g/dL - Imaging Impressions Chest X-Ray 02/06/18 19:47 CONCLUSION: No evidence of acute cardiopulmonary disease. Head CT 02/06/18 19:47 CONCLUSION: 1. No acute intracranial abnormalities. Chronic white matter ischemic changes. Remote lacunar infarct right cerebellar hemisphere. . Caprini VTE Risk Assessment Caprini VTE Risk Assessment: No/Low Risk (score <= 1) Caprini Risk Assessment Model: Point Value = 1 Point Value = 2 Point Value = 3 Point Value = 5 Age 41-60 Minor surgery BMI > 25 kg/m2 Swollen legs Varicose veins or History of unexplained or recurrent spontaneous Oral contraceptives or hormone replacement Sepsis (< 1 month) Serious lung disease, including pneumonia (< 1 month) Abnormal pulmonary function Acute myocardial infarction Congestive heart failure (< 1 month) History of inflammatory bowel disease Medical patient at bed rest Age 61-74 Arthroscopic surgery Major open surgery (> 45 min) Laparoscopic surgery (> 45 min) Malignancy Confined to bed (> 72 hours) Immobilizing plaster cast Central venous access Age >= 75 History of VTE Family history of VTE Factor V Leiden Prothrombin [id number] Lupus anticoagulant Anticardiolipin antibodies Elevated serum homocysteine Heparin-induced thrombocytopenia Other congenital or acquired thrombophilia Stroke (< 1 month) Elective arthroplasty Hip, pelvis, or leg fracture Acute spinal cord injury (< 1 month) Prophylaxis Regimen: Total Risk Factor Score Risk Level Prophylaxis Regimen 0-1 Low Early ambulation 2 Moderate Order ONE of the following: *Sequential Compression Device (SCD) *Heparin 5000 units SQ BID 3-4 Higher Order ONE of the following medications: *Heparin 5000 units SQ TID *Enoxaparin/Lovenox 40 mg SQ daily (WT < 150 kg, CrCl > 30 mL/min) *Enoxaparin/Lovenox 30 mg SQ daily (WT < 150 kg, CrCl > 10-29 mL/min) *Enoxaparin/Lovenox 30 mg SQ BID (WT < 150 kg, CrCl > 30 mL/min) AND/OR *Sequential Compression Device (SCD) 5 or more Highest Order ONE of the following medications: *Heparin 5000 units SQ TID (Preferred with Epidurals) *Enoxaparin/Lovenox 40 mg SQ daily (WT < 150 kg, CrCl > 30 mL/min) *Enoxaparin/Lovenox 30 mg SQ daily (WT < 150 kg, CrCl > 10-29 mL/min) *Enoxaparin/Lovenox 30 mg SQ BID (WT < 150 kg, CrCl > 30 mL/min) AND *Sequential Compression Device (SCD) Assessment and Plan - Assessment (1) Atrial fibrillation with RVR Code(s): I48.91 - Unspecified atrial fibrillation Status: Acute (2) HTN (hypertension) Code(s): I10 - Essential (primary) hypertension Status: Acute (3) CKD (chronic kidney disease) stage 4, GFR 15-29 ml/min Code(s): N18.4 - Chronic kidney disease, stage 4 (severe) Status: Acute (4) Anemia Code(s): D64.9 - Anemia, unspecified Status: Acute (5) Failure to thrive Status: Acute - Plan A/P: 1. Afib w/ RVR: New Onset, HR 120-130's on arrival, s/p Lopressor x3 in ER w/ improvement, HR 80-90's, no h/o Afib per Sons at bedside. Initial trop negative , check serial cardiac enzymes to r/o underlying ischemia. Telemetry. Check Echo to eval for valvular abnormality/cardiomyopathy. Consult Cardiology for further eval/recommendations. 2. HTN: Uncontrolled. BP 180's systolic, per Sons pt takes medications irregularly, antihypertensives as needed, monitor BP. 3. CKD: Stage IV, creatinine 2.94, previously 2.57 on 06/28/17, IVF for hydration-caution w/ fluid overload, monitor I/O, repeat labs in am. 4. Anemia: Hgb 9.8, previously 11.0 on 06/28/17, no evidence of bleeding, monitor closely, repeat labs in am. 5. FTT: Sons note progressive decline in function w/ decreased PO intake since recent admit to [facility] 1 mo ago for fall w/ toe fracture, Consult PT for eval/tx, Consult Wound Management for eval of lower extremities. 6. DVT Prophylaxis: Heparin sq 7. Social work for d/c planning as needed 8. Case discussed w/ ER physician at length, labs/records/imaging reviewed by me.
[2018-02-06] MEDS ORDERED: Metoprolol Tartrate 25 MG Tablet PO SCH (23:00)
[2018-02-06] MEDS: Sod Chloride 0.9% Inj 1,000 ML IV.CONT SCH (23:11)
[2018-02-07 02:07] LABS: Baso # (Auto) 0.1 th/mm3 (0.0-0.2); Eos # (Auto) 0.1 th/mm3 (0.0-0.4); Hematocrit 29.7 % (39.0-51.0); Hemoglobin 10.3 gm/dL (13.0-17.0); Lymph # (Auto) 1.1 th/mm3 (1.0-4.8); Lymph % (Auto) 9.6 % (9.0-44.0); Mean Corpuscular HGB Conc 34.7 % (32.0-36.0); Mean Corpuscular Hemoglobin 32.5 pg (27.0-34.0); Mean Corpuscular Volume 93.5 fL (80.0-100.0); Mean Platelet Volume 6.8 fL (7.0-11.0); Mono # (Auto) 1.2 th/mm3 (0.0-0.9); Mono % (Auto) 10.8 % (0.0-8.0); Neut # (Auto) 8.8 th/mm3 (1.8-7.7); Neut % (Auto) 77.6 % (16.0-70.0); Platelet Count 422 th/mm3 (150-450); Red Blood Count 3.17 mil/mm3 (4.50-5.90); Red Cell Distribution Width 13.5 % (11.6-17.2); White Blood Count 11.3 th/mm3 (4.0-11.0)
[2018-02-07 02:30] LABS: Alanine Aminotransferase 50 U/L (12-78); Albumin 2.6 g/dL (3.4-5.0); Anion Gap 11 meq/L (5-15); Aspartate Aminotransferase 34 U/L (15-37); Blood Urea Nitrogen 52 mg/dL (7-18); Calcium 7.9 mg/dL (8.5-10.1); Carbon Dioxide 23.2 meq/L (21.0-32.0); Chloride 99 meq/L (98-107); Glomerular Filtration Rate 26 mL/min (>89); Glucose,Random 102 mg/dL (74-106); Potassium 4.2 meq/L (3.5-5.1); Sodium 133 meq/L (136-145)
[2018-02-07 02:34] LABS: Alkaline Phosphatase 218 U/L (45-117); Total Protein 7.6 g/dL (6.4-8.2); Troponin I 0.04 ng/mL (0.02-0.05)
[2018-02-07 04:18] LABS: Bilirubin,Urine Negative (Negative); Clarity,Urine Hazy (Clear); Color,Urine Yellow (Yellw/Straw); Glucose,Urine (UA) Negative (Negative); Leukocyte Esterase,Urine Negative (Negative); Mucus,Urine Few /lpf (Occasional); Nitrite,Urine Negative (Negative); Specific Gravity,Urine 1.013 (1.002-1.035); Squamous Epithelial Cell,Urine 1 /hpf (0-5)
[2018-02-07] MEDS: Senna/Docusate Sodium 8.6/50 MG Tablet PO SCH ×2 (09:18→20:34)
[2018-02-07] MEDS: Heparin - SQ 10,000 UNITS/ML Vial SQ SCH ×2 (09:19→20:33)
[2018-02-07] MEDS: Sod Chloride 0.9% Inj 1,000 ML IV.CONT SCH ×2 (12:21→20:28)
[2018-02-07] MEDS: dilTIAZem 60 MG Tablet PO SCH ×3 (12:58→20:33)
--- NOTE | 2018-02-07 13:08 | MB ---
cc: Luisito Chris MD DATE: 02/07/2018 REASON FOR CONSULTATION: Evaluation of arrhythmia. HISTORY OF PRESENT ILLNESS: Yogi Cesar is an 82-year-old man admitted to the hospital and given a diagnosis of atrial fibrillation. The patient had recent surgery on his right fifth toe required surgery and he complains of his right foot being very painful. Apparently when he first came in the hospital, he was not talking to the daughter, was not eating or drinking properly. He is talking some now. His only complaint is of pain in the right foot. He denies any chest pain, shortness of breath or palpitations. PAST MEDICAL HISTORY: Apparently includes hypertension. He quit smoking in 2000. 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 Apparently he has chronic kidney disease. SOCIAL HISTORY: He quit smoking in 2000, smoked a pack and a half of cigarettes a day prior. FAMILY HISTORY: Unremarkable. REVIEW OF SYSTEMS: No additional information was gleaned. PHYSICAL EXAMINATION: GENERAL: Well-developed, well-nourished -[place] male. EKGs and telemetry shows sinus with multiple PACs and meets criteria for diagnosis of multifocal atrial tachycardia at times. HEENT: Unremarkable. NECK: No bruits. No JVD. LUNGS: Clear to auscultation. CARDIOVASCULAR: S1, S2, irregularly irregular. No S3 or murmur. ABDOMEN: Soft, nontender. EXTREMITIES: Reveal skin changes in the lower extremity from venous insufficiency and marked tenderness of the right foot. Chest x-ray shows no acute disease. LABORATORY DATA: Head CT showed chronic white matter ischemic changes, remote lacunar infarct, right cerebellar hemisphere. Laboratory show marked elevation of BUN and creatinine 52 and 2.84. Troponins are okay, 0.04, 0.04, 0.05. Albumin is depressed at 2.6. White count 11,300, hematocrit 29.7. EKG does not show atrial fibrillation. It should have been interpreted as multifocal atrial tachycardia. There is left ventricular hypertrophy by voltage and repolarization changes in aVL. IMPRESSION: The patient does not have any evidence of atrial fibrillation this admission. Instead it is sinus with multiple PACs and at times multifocal atrial tachycardia. RECOMMENDATIONS: Discontinue amlodipine and switch to diltiazem, a total dose of 240 mg daily. I will defer to the medical team, the management of his elevated BUN and creatinine and evaluation of his right foot. I will be available as needed. Please call if there are any questions. Luisito Chris MD VEJerman/sv , 12:17 PM , 12:25 PM
--- NOTE | 2018-02-07 13:21 | P.PNIM ---
Subjective Interval history: Improvements are seen in the patient's heart rate in the last 12 hours. Cardiology has evaluated this patient and has recommended change from amlodipine to diltiazem. Patient's other problem is his right lower extremity. I reviewed the records that his family brought in which show that he was at [facility] in [place] with a right lower extremity infection and he had some surgical interventions by podiatry and vascular surgery. He was supposed to follow-up with them but has not followed up. Right lower extremity looks like it has several areas of necrosis and stitches from the surgery which is about 3 weeks ago remain present. She has chronic kidney disease stage IV at baseline which will make any contrast studies risky, inhibiting full vascular workup. Physical Exam Vital signs: Last Vital Signs Temp 98.5 F 02/07/18 04:00 Pulse 95 H 02/07/18 07:00 Resp 17 02/07/18 04:00 BP 137/84 02/07/18 04:00 Pulse Ox 99 02/07/18 04:00 Intake & Output 02/05/18 02/06/18 02/07/18 02/08/18 06:59 06:59 06:59 06:59 Intake Total 240 / 240 1000 / 1000 Output Total 200 / 200 Balance 40 / 40 1000 / 1000 Weight 76.9 kg Narrative: GENERAL: NAD, A&Ox3 HEAD: Normocephalic. NECK: Supple, trachea midline. No lymphadenopathy. EYES: No scleral icterus. No injection or drainage. CARDIOVASCULAR: Regular rate and rhythm without murmurs, gallops, or rubs. RESPIRATORY: Breath sounds equal bilaterally. No accessory muscle use. GASTROINTESTINAL: Abdomen soft, non-tender, nondistended. MUSCULOSKELETAL: No cyanosis, or edema. Both lower extremities show evidence of peripheral vascular disease. The right lower extremity is significantly more compromised than the left lower extremity. Right lower extremity shows all wounds were stitches remain in evidence of necrotic or gangrenous tissue at some toes and potentially the forefoot and heel. No odor, no purulent discharge , no evidence of wet gangrene but the right lower extremities shows diffuse scaling which could hide some disease. SKIN: Warm and dry. NEURO: No focal neurological deficits. Urinary Catheter Management Straight: Cath placed during this visit: no Results Labs CBC & Chem 7: 02/07/18 01:28 02/07/18 01:28 Labs: Microbiology 12/06/18 19:50 Blood - Peripheral Aerobic Blood Culture - Preliminary No growth in 1 day 02/06/18 19:50 Blood - Peripheral Anaerobic Blood Culture - Preliminary No growth in 1 day 02/06/18 19:45 Blood - Peripheral Aerobic Blood Culture - Preliminary No growth in 1 day 02/06/18 19:45 Blood - Peripheral Anaerobic Blood Culture - Preliminary No growth in 1 day Imaging Imaging: Impressions Chest X-Ray 02/06/18 19:47 CONCLUSION: No evidence of acute cardiopulmonary disease. Head CT 02/06/18 19:47 CONCLUSION: 1. No acute intracranial abnormalities. Chronic white matter ischemic changes. Remote lacunar infarct right cerebellar hemisphere. . Assessment and Plan (1) Atrial fibrillation with RVR: Code(s): I48.91 - Unspecified atrial fibrillation Status: Acute (2) HTN (hypertension): Code(s): I10 - Essential (primary) hypertension Status: Acute (3) CKD (chronic kidney disease) stage 4, GFR 15-29 ml/min: Code(s): N18.4 - Chronic kidney disease, stage 4 (severe) Status: Acute (4) Anemia: Code(s): D64.9 - Anemia, unspecified Status: Acute (5) Failure to thrive: Status: Acute Plan 82-year-old male admitted secondary to A. fib RVR and evidence of necrotic disease at right lower extremity A. fib RVR Improved Audiology following Amlodipine discontinued Diltiazem initiated Follow on telemetry Right lower extremity necrosis Podiatry consulted Obtain venous Doppler ultrasound of bilateral lower extremities Obtain arterial flow studies of bilateral lower extremities MRA of bilateral lower extremities CTA runoff study deferred as patient's kidney disease prohibits safe use of contrast Possible need for vascular consult, will await study findings Wound care team following Hypertension Continue baseline treatment Follow blood pressures Adjust treatments as needed Anemia Monitor blood counts Follow CBC Generalized weakness Failure to thrive Physical therapy following DVT prophylaxis Heparin _ (1) HTN (hypertension) Qualifiers: Hypertension type: (2) Anemia Qualifiers: Anemia type: Iron deficiency anemia type: Vitamin B12 deficiency anemia type: Folate deficiency anemia type: Bone marrow failure anemia type: Hemolytic anemia type: Other causes of anemia: Chronic kidney disease stage : (3) Failure to thrive Qualifiers: Failure to thrive age range:
--- NOTE | 2018-02-07 14:57 | P.PNWCN ---
Wound Care Nurse Consult Description: Received wound management consult from Doctor Blayne STRANGE. Communicated with: RN Benita Carbajal and Doctor Myron Chandler Recommendation: 1.Please consult Podiatry for R lower extremity wounds. 2. Please apply Povidone Iodine to R heel, R great toe, R distal foot and between the R 4th and 5th toes over sutures and purple intact skin discoloration , BID and leave open to air, until seen by podiatry. Wound/Pressure Injury - Wound Right Heel Wound Staging: DTI Wound Assessment: Ongoing Wound Type: Pressure Injury Is This a Chronic Wound: Yes Requested from Provider a Wound Care Consult: Yes (Wound care saw patient) Length (cm): 12 Width (cm): 10 Depth (cm): 0 (intact purple skin discoloration) Wound Bed Appearance: Wound presents as non blanchable intact purple skin discoloration. periwound presents with callus. Surrounding Tissue Temperature: Cool Drainage Amount: None Drainage Odor: No Odor Dressing Status: Open to Air Topical: Povidine-Iodine (Betadine) intertriginous area between 4th and 5th toes Wound Assessment: Ongoing Is This a Chronic Wound: No Requested from Provider a Wound Care Consult: Yes Wound Bed Appearance: Sutures Wound Bed Appearance: Wound bed presents with ~7 sutures that appear to be dehiscing.Periwound presents with dark discolored skin Surrounding Tissue Temperature: Warm Drainage Description: Serosanguinous Drainage Amount: Scant Drainage Odor: No Odor Dressing Status: Open to Air Topical: Povidine-Iodine (Betadine) Right distal foot Wound Assessment: Ongoing Is This a Chronic Wound: No Requested from Provider a Wound Care Consult: Yes (Wound care saw patient) Length (cm): 8.3 Width (cm): 10 Depth (cm): 0 (dark discolored skin that is boggy just behind the toes) Wound Bed Appearance: Intact skin that has a dark discoloration that is peeling and boggy just behind the toes. Discoloration is open in two small areas on the dorsal aspect of the foot. Periwound presents with peeling skin and hyperkeratotic tissue. Surrounding Tissue Temperature: Cool Drainage Amount: None Drainage Odor: No Odor Dressing Status: Open to Air Topical: Povidine-Iodine (Betadine) Right Medial Great Toe Wound Type: Traumatic Wound Is This a Chronic Wound: No Requested from Provider a Wound Care Consult: Yes Length (cm): 6 Width (cm): 2 Depth (cm): 0 (purple discoloration on skin that is opening revealing red non granulation tissue) Wound Bed Appearance: Purple skin discoloration is noted to R Medial great to that is opening to reveal red non granulation tissue. Periwound presents with dry peeling skin Surrounding Tissue Temperature: Cool Drainage Description: Serosanguinous Drainage Amount: Scant Drainage Odor: No Odor Dressing Status: Open to Air Topical: Povidine-Iodine (Betadine) Right Great Toe Wound Type: Traumatic Wound Is This a Chronic Wound: No Requested from Provider a Wound Care Consult: Yes (Wound care saw patient today) Length (cm): 1 Width (cm): 1.5 Depth (cm): 0 (eschar) Wound Bed Appearance: 100% black eschar. Periwound presents with hyperkeratotic tissue that is dry Surrounding Tissue Temperature: Cool Drainage Amount: None Drainage Odor: No Odor Dressing Status: Open to Air Topical: Povidine-Iodine (Betadine) - Additional Information Patient seen on [facility] for LE wound management. Patient reports multiple falls while at home and went to a Doctor in [place] on one these occasions and has to have sutures placed between his 4th and 5th toes and Great toe.Per Patient, Sutures have been in place since 01/18/2018. Sutures within the intertriginous area between the 4th and 5th toes appears to be dehiscing. Suture to R great toe is intact. R 5th is also noted with some dark discoloration. There is also Dark discoloration to the skin extending from the R lateral distal plantar surface of the foot to the R distal dorsal surface of the foot. the discoloration is boggy, and edematous with openings in two areas to the dorsal aspect of the foot. R heel is also noted with non blanchable dark discoloration to intact skin extending to the R lateral aspect of the foot. Also R lateral Great toe is noted with dark discoloration to skin that is opening and revealing red non granulation tissue that vascular. Finally R tip of great toe presents with dry intact eschar with surrounding callus. Applied Shaving cream to bilateral lower extremities with dry peeling skin and left in place with warm towels for ~10 minutes before rinsing shaving cream off with water and washcloths.BLE was then dried thoroughly. All areas noted above were left open to air and Povidone iodine was applied.
--- NOTE | 2018-02-07 16:12 | ECHRPT ---
Indication: AFIB FLUTTER CONCLUSIONS Normal left ventricular size. Moderate concentric left ventricular hypertrophy. The left ventricular systolic function is normal with an estimated ejection fraction in the range of 55%. There was limited left ventricular wall motion assessment due to poor endocardial visualization. Atrial septal aneurysm is present (benign finding). Trace mitral valve regurgitation. There is trace tricuspid valve regurgitation. The estimated pulmonary arterial pressure is 21 mmHg. Trivial pulmonary valve regurgitation. BP: / HR: Rhythm: Technical Quality: FINDINGS LEFT VENTRICLE Normal left ventricular size. Moderate concentric left ventricular hypertrophy. The left ventricular systolic function is normal with an estimated ejection fraction in the range of 55%. There was limited left ventricular wall motion assessment due to poor endocardial visualization. RIGHT VENTRICLE Normal right ventricular size and systolic function. LEFT ATRIUM The left atrial size is normal. RIGHT ATRIUM The right atrial size is normal. ATRIAL SEPTUM Atrial septal aneurysm is present (benign finding). AORTA The aortic root and proximal ascending aorta are normal in size on limited imaging. MITRAL VALVE Trace mitral valve regurgitation. AORTIC VALVE Trileaflet aortic valve. No aortic valve stenosis or regurgitation. TRICUSPID VALVE There is trace tricuspid valve regurgitation. The estimated pulmonary arterial pressure is 21 mmHg. PULMONARY VALVE Trivial pulmonary valve regurgitation. VESSELS The inferior vena cava is normal in size. PERICARDIUM No pericardial effusion. Luisito Chris MD (Electronically Signed) Final Date:07 February 2018 16:11
[2018-02-07] MEDS ORDERED: Gadobutrol PF 10 MMOL/10 ML Vial (for RAD) IV.SIG ONE (17:31)
--- NOTE | 2018-02-07 18:57 | MR ---
EXAM DATE: 02/07/2018 6:36 PM EST AGE/SEX: 82 years / Male INDICATIONS: . PVD. CLINICAL DATA: This is the patient's initial encounter. Patient reports that signs and symptoms have been present for 4 - 6 days and indicates a pain score of 6/10. MEDICAL/SURGICAL HISTORY: Hypertension. Peripheral vascular disease. Renal failure, acute. CA BG. Fusion, cervical. COMPARISON: No prior exams available for comparison. TECHNIQUE: Multiplanar, multisequence MRI examination was performed without contrast and after th e intravenous administration of 9 ml Gadavist (gadobutrol) single exam dose. FINDINGS: The study is motion degraded. There is diffuse soft tissue edema. Slightly more intense edema is seen of the heel pad and the edema extends down to the posterior calcaneus. There is very mild subcortica l marrow edema of the posterior calcaneus but no perceptible corresponding T1 signal abnormality. Mod erate to severe distal and insertional tendinosis and enthesopathic changes seen of Achilles without tear. There is moderate proximal plantar fascia fasciitis with a moderate size heel spur, also withou t tear. No drainable fluid collections. No other areas of marrow edema are demonstrated. No fractures or subl uxations. There is second through fifth hammertoe. CONCLUSION: 1. Diffuse soft tissue edema, nonspecific. 2. Apparent cellulitis of the heel pad. No abscess or perceptible osteomyelitis at this time. 3. Insertional tendinosis and enthesopathic changes of Achilles. No tear. 4. Moderate proximal plantar fasciitis without tear. Moderate size heel spur. Electronically signed by: Nestor Watkins MD 02/07/2018 6:55 PM EST
--- NOTE | 2018-02-07 19:26 | MR ---
EXAM DATE: 02/07/2018 6:36 PM EST AGE/SEX: 82 years / Male INDICATIONS: . PVD. CLINICAL DATA: This is the patient's initial encounter. Patient reports that signs and symptoms have been present for 4 - 6 days and indicates a pain score of 6/10. MEDICAL/SURGICAL HISTORY: Hypertension. Renal failure, acute. CABG. Fusion, cervical. COMPARISON: No prior exams available for comparison. TECHNIQUE: Multiplanar, multisequence MRI examination was performed without contrast and after th e intravenous administration of 9 ml Gadavist (gadobutrol) single exam dose. FINDINGS: Severe masslike soft tissue signal abnormality of the dorsal midfoot adjacent to the metatarsals. It has predominantly high signal on the T2-weighted images and intermediate to high signal on the T1-lucille ghted images. No definite enhancement on the postcontrast images. The abnormality measures approximat rosalie 7.4 x 2.7 cm in axial dimensions and 7.5 cm in proximal to distal dimension. It has interspersed areas of low signal on the T1-weighted images and T2-weighted images. The presence of high signal on the precontrast T1-weighted images and T2-weighted images raise the possibility of hematoma. Infectio n is also in the differential diagnosis. The foci of low signal could represent gas. It does not have the typical appearance of abscess on the T1-weighted images. Abnormality is not seen in this region on the prior foot x-ray of 12/31/2017. Large distal tibia bone infarct. Linear low signal with surrounding bony edema is seen in the posteri or facet of the calcaneus and anterior facet of the calcaneus may represent stress injury or infarct. Similar finding is seen in the anterior dome of the talus. There is apparent cutaneous ulceration of the posterior heel and mild nonspecific reactive bony changes of the posterior aspect of the posteri or process of the calcaneus. Patchy bony edema in the midfoot adjacent to the tarsometatarsal joints likely representing reactive change from arthrosis. Diffuse fatty atrophy and edema of the intrinsic foot muscles. Plantar aponeurosis is intact. CONCLUSION: 1. Large heterogeneous masslike dorsal soft tissue signal abnormality of the forefoot. This finding is not seen on the prior radiographs of 01/01/2018. High signal on the T1-weighted images but favor h ematoma. Atypical appearance of infection is also in the differential diagnosis. There are low signal foci that could represent gas as no calcification is seen on radiographs. Recommend repeat right dennis t radiographs this time to evaluate for calcification or gas in the soft tissue. The abnormality does not have the typical appearance of an abscess on the precontrast and postcontrast T1-weighted images . 2. 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 Bone infarcts versus stress reaction of the posterior pro cess of the calcaneus and the talus. 3. Arthritic findings of the midfoot. 4. Age-indeterminate posterior heel cutaneous ulceration with mild nonspecific adjacent posterior ca lcaneal bony edema but no definitive evidence of osteomyelitis. Electronically signed by: Yefri Cullen MD 02/07/2018 7:24 PM EST
[2018-02-07] MEDS: Metoprolol Tartrate 25 MG Tablet PO SCH (20:33)
[2018-02-07] MEDS ORDERED: Metoprolol Tartrate 25 MG Tablet PO SCH (21:00)
[2018-02-07] MEDS ORDERED: amLODIPine 5 MG Tablet PO SCH (21:00)
--- NOTE | 2018-02-07 21:49 | P.CONPOD ---
History of Present Illness Service: Podiatry Consult date: 02/07/18 Reason for Consult: Right foot necrotic Primary Care Provider: Deion Mcnair MD History of Present Illness: Patient was at [facility] in [place] with some right 5th toe surgery that occurred there and sutures intact. He has not had a chance to follow up, and these procedures were approximately 3 weeks ago. He is not able to give me much detail regarding what happened. He thinks someone has told him that he has bad circulation, but cannot remember who or when. Review of Systems All other systems reviewed negative except as stated in HPI PMFSH - History History Provided By: Patient - Medical History Medical History: Medical History (Last Reviewed 02/07/18 @ 09:32 by Neil Marroquin) Medical history unknown Surgical history unknown - Tobacco History Smoking Status: Former smoker - Alcohol History How Often Do You Have a Drink Containing Alcohol: Monthly or less - Substance Use History Substance History: No History of Abuse - Travel History Recent Travel in the [place] Within the Last 8 Weeks: No Recent Travel Out of the Country Within the Last 8 Weeks: No - Immunization History Tetanus Immunization: <5 Years Medications and Allergies Active Medications: Active Medications Acetaminophen (Tylenol) 650 mg PO Q4H PRN PRN Reason: Temp > 100.4 Al Hydroxide/Mg Hydroxide (Milk Of Magnesia Liq) 30 ml PO Q12H PRN PRN Reason: Mild Constipation Bisacodyl (Dulcolax Supp) 10 mg RECTAL DAILY PRN PRN Reason: SEVERE CONSITIPATION Bumetanide (Bumex) 2 mg PO DAILY [facility] Last Admin: 02/07/18 09:18 Dose: 2 mg Diltiazem HCl (Cardizem Cd 24hr) 240 mg PO DAILY [facility] Diltiazem HCl (Cardizem) 60 mg PO QID [facility] Stop: 02/08/18 08:30 Last Admin: 02/07/18 20:33 Dose: 60 mg Heparin Sodium (Porcine) (Heparin Inj) 5,000 units SQ Q12HR [facility] Last Admin: 02/07/18 20:33 Dose: 5,000 units Sodium Chloride (Ns Inj) 1,000 mls @ 100 mls/hr IV.CONT .Q10H [facility] Last Admin: 02/07/18 20:28 Dose: Not Given Lactulose (Lactulose Liq) 30 ml PO DAILY PRN PRN Reason: SEVERE CONSITIPATION Metoprolol Tartrate (Lopressor) 25 mg PO BID [facility] Last Admin: 02/07/18 20:33 Dose: 25 mg Multivitamins (Theragran) 1 tab PO DAILY [facility] Last Admin: 02/07/18 09:18 Dose: 1 tab Ondansetron HCl (Zofran Inj) 4 mg IV.PUSH Q6H PRN PRN Reason: NAUSEA OR VOMITING Senna/Docusate Sodium (Danyelle-Colace) 1 tab PO BID [facility] Last Admin: 02/07/18 20:34 Dose: 1 tab Sennosides (Senokot) 17.2 mg PO Q12H PRN PRN Reason: Moderate Constipation Sodium Chloride (Ns Flush) 2 ml IV.FLUSH BID [facility] Last Admin: 02/07/18 20:34 Dose: Not Given Sodium Chloride (Ns Flush) 2 ml IV.FLUSH PRN PRN PRN Reason: FLUSH AFTER USING IV ACCESS Tamsulosin HCl (Flomax) 0.4 mg PO DAILY [facility] Last Admin: 02/07/18 09:18 Dose: 0.4 mg Allergies Allergy/AdvReac Type Severity Reaction Status Date / Time No Known Allergies Uncoded 02/13/09 21:12 Home Medications Medication Instructions Recorded Confirmed Type amlodipine 5 mg PO HS 02/06/18 02/06/18 History bethanechol chloride 15 mg PO QID 02/06/18 02/06/18 History bumetanide 2 mg PO DAILY 02/06/18 02/06/18 History cholecalciferol (vitamin D3) 1,000 unit PO DAILY 02/06/18 02/06/18 History [Vitamin D3] cilostazol 100 mg PO BID 02/06/18 02/06/18 History ferrous sulfate [High Potency Iron] 27 mg PO DAILY 02/06/18 02/06/18 History losartan 25 mg PO DAILY 02/06/18 02/06/18 History metoprolol tartrate 25 mg PO HS 02/06/18 02/06/18 History ofhxmxvbhcpc-ddpp-opfqt acid 1 tab PO DAILY 02/06/18 02/06/18 History [Centrum] tamsulosin 0.4 mg PO DAILY 02/06/18 02/06/18 History Physical Exam Vital signs: Vital Signs 02/06/18 22:44 02/06/18 23:18 02/07/18 00:00 Temperature Pulse Rate 88 93 H 96 H Respiratory Rate 17 14 Blood Pressure 182/96 H 176/69 H Pulse Oximetry 100 100 02/07/18 00:56 02/07/18 01:00 02/07/18 02:00 Temperature 98.7 F Pulse Rate 107 H 91 H 94 H Respiratory Rate 18 Blood Pressure 150/78 H Pulse Oximetry 100 02/07/18 03:00 02/07/18 04:00 02/07/18 05:00 Temperature 98.5 F Pulse Rate 101 H 99 H 86 Respiratory Rate 17 Blood Pressure 137/84 Pulse Oximetry 99 02/07/18 06:00 02/07/18 07:00 02/07/18 08:00 Temperature 98.9 F Pulse Rate 94 H 95 H 95 H Respiratory Rate 20 Blood Pressure 134/70 Pulse Oximetry 100 02/07/18 09:00 02/07/18 10:00 02/07/18 12:00 Temperature 98.3 F Pulse Rate 90 96 H 94 H Respiratory Rate 22 Blood Pressure 159/86 H Pulse Oximetry 100 02/07/18 13:00 02/07/18 14:00 02/07/18 18:00 Temperature 98.8 F Pulse Rate 96 H 92 H 104 H Respiratory Rate Blood Pressure 122/60 Pulse Oximetry 100 02/07/18 19:00 02/07/18 19:53 02/07/18 20:00 Temperature 98.4 F Pulse Rate 96 H 112 H 96 H Respiratory Rate 20 Blood Pressure 180/86 H Pulse Oximetry 100 02/07/18 21:00 Temperature Pulse Rate 92 H Respiratory Rate Blood Pressure Pulse Oximetry Intake & Output 02/07/18 02/07/18 02/08/18 06:59 18:59 06:59 Intake Total 240 / 240 1600 / 1600 Output Total 200 / 200 1000 / 1000 Balance 40 / 40 600 / 600 Weight 76.9 kg Intake: IV 1000 / 1000 NS Inj 1,000 ML @ 100 mls/hr IV 1000 / 1000 .CONT .Q10H [facility] Rx#:[id number] Oral 240 / 240 600 / 600 Output: Urine 200 / 200 1000 / 1000 Other: Date of Last Bowel Movement 02/07/18 02/07/18 # Bowel Movements 1 Narrative: Right foot with palpable fluctuant area, no purulence, to dorsal forefoot. There are mummified dark gangrenous changes noted to 5th digit with sutures intact from recent surgery. Entire foot is painful to palpation to this patient. Nonpalpable pedal pulses and chronic atrophic skin changes noted throughout. Results - Labs CBC & Chem 7: 02/08/18 05:35 02/08/18 05:35 Laboratory Results - last 24 hr 02/06/18 02/07/18 02/07/18 19:15 01:28 01:28 WBC 11.3 H RBC 3.17 L Hgb 10.3 L Hct 29.7 L MCV 93.5 MCH 32.5 MCHC 34.7 RDW 13.5 Plt Count 422 MPV 6.8 L Neut % (Auto) 77.6 H Lymph % (Auto) 9.6 [place] % (Auto) 10.8 H Eos % (Auto) 1.0 Baso % (Auto) 1.0 Neut # (Auto) 8.8 H Lymph # (Auto) 1.1 [place] # (Auto) 1.2 H Eos # (Auto) 0.1 Baso # (Auto) 0.1 WBC Differential . Differential Comment Auto diff final Sodium 133 L Potassium 4.2 Chloride 99 Carbon Dioxide 23.2 Anion Gap 11 BUN 52 H Creatinine 2.84 H Estimated GFR 26 L Random Glucose 102 Calcium 7.9 L Total Bilirubin 0.8 AST 34 ALT 50 Alkaline Phosphatase 218 H Troponin I 0.04 B-Natriuretic Peptide 114 H Total Protein 7.6 Albumin 2.6 L Urine Color Urine Clarity Urine pH Ur Specific [place] Urine Protein Urine Glucose (UA) Urine Ketones Urine Occult Blood Urine Nitrate Urine Bilirubin Urine Urobilinogen Ur Leukocyte Esterase Urine RBC Urine WBC Ur Squamous Epith Cells Urine Mucus Micro UA Comment Ur Microscopic Review Urine Culture Comments 02/07/18 02/07/18 03:00 07:12 WBC RBC Hgb Hct MCV MCH MCHC RDW Plt Count MPV Neut % (Auto) Lymph % (Auto) [place] % (Auto) Eos % (Auto) Baso % (Auto) Neut # (Auto) Lymph # (Auto) [place] # (Auto) Eos # (Auto) Baso # (Auto) WBC Differential Differential Comment Sodium Potassium Chloride Carbon Dioxide Anion Gap BUN Creatinine Estimated GFR Random Glucose Calcium Total Bilirubin AST ALT Alkaline Phosphatase Troponin I 0.05 B-Natriuretic Peptide Total Protein Albumin Urine Color Yellow Urine Clarity Hazy H Urine pH 6.0 Ur Specific [place] 1.013 Urine Protein 100 H Urine Glucose (UA) Negative Urine Ketones Negative Urine Occult Blood Moderate H Urine Nitrate Negative Urine Bilirubin Negative Urine Urobilinogen Less than 2 Ur Leukocyte Esterase Negative Urine RBC 53 H Urine WBC 6 H Ur Squamous Epith Cells 1 Urine Mucus Few H Micro UA Comment Culture not ind Ur Microscopic Review Not Reportable Urine Culture Comments Culture not ind Microbiology 02/06/18 19:50 Blood - Peripheral Aerobic Blood Culture - Preliminary No growth in 1 day 02/06/18 19:50 Blood - Peripheral Anaerobic Blood Culture - Preliminary No growth in 1 day 02/06/18 19:45 Blood - Peripheral Aerobic Blood Culture - Preliminary No growth in 1 day 02/06/18 19:45 Blood - Peripheral Anaerobic Blood Culture - Preliminary No growth in 1 day - Imaging Impressions Foot MRI 02/07/18 00:00 CONCLUSION: 1. Large heterogeneous masslike dorsal soft tissue signal abnormality of the forefoot. This finding is not seen on the prior radiographs of 01/01/2018. High signal on the T1-weighted images but favor hematoma. Atypical appearance of infection is also in the differential diagnosis. There are low signal foci that could represent gas as no calcification is seen on radiographs. Recommend repeat right foot radiographs this time to evaluate for calcification or gas in the soft tissue. The abnormality does not have the typical appearance of an abscess on the precontrast and postcontrast T1-weighted images. 2. 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 Bone infarcts versus stress reaction of the posterior process of the calcaneus and the talus. 3. Arthritic findings of the midfoot. 4. Age-indeterminate posterior heel cutaneous ulceration with mild nonspecific adjacent posterior calcaneal bony edema but no definitive evidence of osteomyelitis. Foot MRI 02/07/18 00:00 CONCLUSION: 1. Diffuse soft tissue edema, nonspecific. 2. Apparent cellulitis of the heel pad. No abscess or perceptible osteomyelitis at this time. 3. Insertional tendinosis and enthesopathic changes of Achilles. No tear. 4. Moderate proximal plantar fasciitis without tear. Moderate size heel spur. Assessment and Plan - Assessment (1) Gangrene Code(s): I96 - Gangrene, not elsewhere classified Status: Acute Plan: AND Possible hematoma R foot per MRI report. PLAN: Ordered ESR, WBC looks stable Do not suspect infection at this time, but appears to be having gangrenous changes to lateral foot, primarily the R 5th digit, which looks dry and stable currently. Sutures remain in place from recent surgery, but gangrene appears to be demarcating. At this time, i do not plan on any surgical intervention at all without full vascular workup and recommendations, as I do not feel podiatric surgery will improve anything right now. Needs to continue to await demarcation, and may need more proximal amputation, pending vascular workup. I consulted for vascular evaluation and recommendations. Will watch and wait.
[2018-02-08 06:05] LABS: Baso # (Auto) 0.1 th/mm3 (0.0-0.2); Eos # (Auto) 0.2 th/mm3 (0.0-0.4); Eos % (Auto) 2.3 % (0.0-4.0); Hematocrit 26.8 % (39.0-51.0); Hemoglobin 9.2 gm/dL (13.0-17.0); Lymph # (Auto) 0.8 th/mm3 (1.0-4.8); Lymph % (Auto) 10.4 % (9.0-44.0); Mean Corpuscular HGB Conc 34.3 % (32.0-36.0); Mean Corpuscular Hemoglobin 32.3 pg (27.0-34.0); Mean Corpuscular Volume 94.2 fL (80.0-100.0); Mean Platelet Volume 6.5 fL (7.0-11.0); Mono # (Auto) 0.8 th/mm3 (0.0-0.9); Mono % (Auto) 11.4 % (0.0-8.0); Neut # (Auto) 5.4 th/mm3 (1.8-7.7); Neut % (Auto) 73.9 % (16.0-70.0); Platelet Count 396 th/mm3 (150-450); Red Blood Count 2.85 mil/mm3 (4.50-5.90); Red Cell Distribution Width 13.7 % (11.6-17.2); White Blood Count 7.3 th/mm3 (4.0-11.0)
[2018-02-08] MEDS: Sod Chloride 0.9% Inj 1,000 ML IV.CONT SCH ×2 (06:31→17:44)
[2018-02-08 06:43] LABS: Alanine Aminotransferase 36 U/L (12-78); Albumin 2.4 g/dL (3.4-5.0); Anion Gap 11 meq/L (5-15); Aspartate Aminotransferase 34 U/L (15-37); Blood Urea Nitrogen 47 mg/dL (7-18); Calcium 7.9 mg/dL (8.5-10.1); Carbon Dioxide 24.8 meq/L (21.0-32.0); Chloride 104 meq/L (98-107); Glomerular Filtration Rate 28 mL/min (>89); Glucose,Random 106 mg/dL (74-106); Potassium 3.9 meq/L (3.5-5.1); Sodium 140 meq/L (136-145)
[2018-02-08 06:46] LABS: Alkaline Phosphatase 177 U/L (45-117); Total Protein 6.7 g/dL (6.4-8.2)
[2018-02-08] MEDS: dilTIAZem CD 240 MG Capsule PO SCH (09:18)
[2018-02-08] MEDS: Heparin - SQ 10,000 UNITS/ML Vial SQ SCH ×2 (09:18→21:18)
[2018-02-08] MEDS: Metoprolol Tartrate 25 MG Tablet PO SCH ×2 (09:18→21:18)
[2018-02-08] MEDS: Senna/Docusate Sodium 8.6/50 MG Tablet PO SCH ×2 (13:03→21:18)
--- NOTE | 2018-02-08 13:22 | P.PNIM ---
Subjective Interval history: No recurrence of RVR in last 24 hours. Further workup regarding his right lower extremity vascular situation is in process. Vascular surgeon has been consulted. Podiatry following. Surgery will likely be needed. No new complaints from the patient. Physical Exam Vital signs: Last Vital Signs Temp 97.1 F L 02/08/18 08:00 Pulse 95 H 02/08/18 08:00 Resp 18 02/08/18 08:00 BP 169/80 H 02/08/18 08:00 Pulse Ox 100 02/08/18 08:00 Intake & Output 02/06/18 02/07/18 02/08/18 02/09/18 06:59 06:59 06:59 06:59 Intake Total 240 / 240 2720 / 2720 Output Total 200 / 200 1900 / 1900 Balance 40 / 40 820 / 820 Weight 76.9 kg 76.8 kg Narrative: GENERAL: NAD, A&Ox3 HEAD: Normocephalic. NECK: Supple, trachea midline. No lymphadenopathy. EYES: No scleral icterus. No injection or drainage. CARDIOVASCULAR: Regular rate and rhythm without murmurs, gallops, or rubs. RESPIRATORY: Breath sounds equal bilaterally. No accessory muscle use. GASTROINTESTINAL: Abdomen soft, non-tender, nondistended. MUSCULOSKELETAL: No cyanosis, or edema. Both lower extremities show evidence of peripheral vascular disease. The right lower extremity is significantly more compromised than the left lower extremity. Right lower extremity shows all wounds were stitches remain in evidence of necrotic or gangrenous tissue at some toes and potentially the forefoot and heel. No odor, no purulent discharge , no evidence of wet gangrene but the right lower extremities shows diffuse scaling which could hide some disease. SKIN: Warm and dry. NEURO: No focal neurological deficits. Urinary Catheter Management Straight: Cath placed during this visit: no Results Labs CBC & Chem 7: 02/08/18 05:35 02/08/18 05:35 Labs: Microbiology 02/06/18 19:50 Blood - Peripheral Aerobic Blood Culture - Preliminary No growth in 2 days 02/06/18 19:50 Blood - Peripheral Anaerobic Blood Culture - Preliminary No growth in 2 days 02/06/18 19:45 Blood - Peripheral Aerobic Blood Culture - Preliminary No growth in 2 days 02/06/18 19:45 Blood - Peripheral Anaerobic Blood Culture - Preliminary No growth in 2 days Imaging Imaging: Impressions Foot MRI 02/07/18 00:00 CONCLUSION: 1. Large heterogeneous masslike dorsal soft tissue signal abnormality of the forefoot. This finding is not seen on the prior radiographs of 01/01/2018. High signal on the T1-weighted images but favor hematoma. Atypical appearance of infection is also in the differential diagnosis. There are low signal foci that could represent gas as no calcification is seen on radiographs. Recommend repeat right foot radiographs this time to evaluate for calcification or gas in the soft tissue. The abnormality does not have the typical appearance of an abscess on the precontrast and postcontrast T1-weighted images. 2. 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 Bone infarcts versus stress reaction of the posterior process of the calcaneus and the talus. 3. Arthritic findings of the midfoot. 4. Age-indeterminate posterior heel cutaneous ulceration with mild nonspecific adjacent posterior calcaneal bony edema but no definitive evidence of osteomyelitis. Foot MRI 02/07/18 00:00 CONCLUSION: 1. Diffuse soft tissue edema, nonspecific. 2. Apparent cellulitis of the heel pad. No abscess or perceptible osteomyelitis at this time. 3. Insertional tendinosis and enthesopathic changes of Achilles. No tear. 4. Moderate proximal plantar fasciitis without tear. Moderate size heel spur. Assessment and Plan (1) Gangrene: Code(s): I96 - Gangrene, not elsewhere classified Status: Acute Plan 82-year-old male admitted secondary to A. fib RVR and evidence of necrotic disease at right lower extremity No recurrence of A. fib RVR. Right lower extremity needs further workup and potential surgical intervention. Continue to follow on telemetry. A. fib RVR Improved Audiology following Amlodipine discontinued Diltiazem initiated Follow on telemetry Right lower extremity necrosis Podiatry following Vascular surgeon consulted Obtain venous Doppler ultrasound of bilateral lower extremities Obtain arterial flow studies of bilateral lower extremities MRA of bilateral lower extremities CTA runoff study deferred as patient's kidney disease prohibits safe use of contrast Possible need for vascular consult, will await study findings Wound care team following Hypertension Continue baseline treatment Follow blood pressures Adjust treatments as needed Anemia Monitor blood counts Follow CBC Generalized weakness Failure to thrive Physical therapy following DVT prophylaxis Heparin
--- NOTE | 2018-02-08 13:41 | US ---
EXAM DATE: 02/08/2018 1:37 PM EST AGE/SEX: 82 years / Male INDICATIONS: Leg swelling. CLINICAL DATA: This is the patient's initial encounter. Patient reports that signs and symptoms have been present for 1 day and indicates a pain score of 0/10. MEDICAL/SURGICAL HISTORY: Hypertension. CKD stage IV. Afib. Right toe fracture. 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 . Right toe surgery. Aortic surgery. COMPARISON: [facility]LI, US LEG VENOUS DOPPLER, BILATERAL, 09/11/2017. . TECHNIQUE: Venous ultrasound of both lower extremities was performed from the inguinal ligament to t he proximal calf. Real-time, color Doppler and spectral tracing, compression and augmentation techni ques were used. FINDINGS: Right Leg: Normal compression of the deep venous system from the inguinal region to the proximal addi f. No echogenic clot is seen. Normal response of the venous system to augmentation and respiration. Left Leg: Normal compression of the deep venous system from the inguinal region to the proximal calf . No echogenic clot is seen. Normal response of the venous system to augmentation and respiration. Other: None. CONCLUSION: 1. The study is negative for bilateral lower extremity deep venous thrombosis. 2. Benign-appearing lymph nodes are identified in the right groin. Electronically signed by: Jacinto Phillips MD 02/08/2018 1:39 PM EST
--- NOTE | 2018-02-08 14:13 | P.PNPOD ---
Physical Exam Vital signs: Vital Signs 02/07/18 18:00 02/07/18 19:00 02/07/18 19:53 Temperature 98.8 F 98.4 F Pulse Rate 104 H 96 H 112 H Respiratory Rate 20 Blood Pressure 122/60 180/86 H Pulse Oximetry 100 100 02/07/18 20:00 02/07/18 21:00 02/07/18 22:00 Temperature Pulse Rate 96 H 92 H 77 Respiratory Rate Blood Pressure Pulse Oximetry 02/07/18 23:00 02/08/18 00:00 02/08/18 01:00 Temperature 99.5 F Pulse Rate 73 86 86 Respiratory Rate 20 Blood Pressure 99/41 L Pulse Oximetry 99 02/08/18 02:00 02/08/18 03:00 02/08/18 04:00 Temperature 99.3 F Pulse Rate 86 90 102 H Respiratory Rate 20 Blood Pressure 133/64 Pulse Oximetry 98 02/08/18 05:00 02/08/18 06:00 02/08/18 07:00 Temperature Pulse Rate 94 H 86 82 Respiratory Rate Blood Pressure Pulse Oximetry 02/08/18 08:00 02/08/18 09:00 02/08/18 10:00 Temperature 97.1 F L Pulse Rate 90 92 H 86 Respiratory Rate 18 Blood Pressure 169/80 H Pulse Oximetry 100 02/08/18 11:00 02/08/18 12:00 Temperature 97.6 F Pulse Rate 70 68 Respiratory Rate 18 Blood Pressure 116/62 Pulse Oximetry 100 Intake & Output 02/07/18 02/08/18 02/08/18 18:59 06:59 18:59 Intake Total 1600 / 1600 1120 / 1120 Output Total 1000 / 1000 900 / 900 Balance 600 / 600 220 / 220 Weight 76.8 kg Intake: IV 1000 / 1000 1000 / 1000 NS Inj 1,000 ML @ 100 mls/hr IV 1000 / 1000 1000 / 1000 .CONT .Q10H [facility] Rx#:[id number] Oral 600 / 600 120 / 120 Output: Urine 1000 / 1000 900 / 900 Other: Date of Last Bowel Movement 02/07/18 02/08/18 # Bowel Movements 1 Medications and Allergies Active Medications: Active Medications Acetaminophen (Tylenol) 650 mg PO Q4H PRN PRN Reason: Temp > 100.4 Al Hydroxide/Mg Hydroxide (Milk Of Magnesia Liq) 30 ml PO Q12H PRN PRN Reason: Mild Constipation Bisacodyl (Dulcolax Supp) 10 mg RECTAL DAILY PRN PRN Reason: SEVERE CONSITIPATION Bumetanide (Bumex) 2 mg PO DAILY [facility] Last Admin: 02/08/18 09:18 Dose: 2 mg Diltiazem HCl (Cardizem Cd 24hr) 240 mg PO DAILY [facility] Last Admin: 02/08/18 09:18 Dose: 240 mg Heparin Sodium (Porcine) (Heparin Inj) 5,000 units SQ Q12HR [facility] Last Admin: 02/08/18 09:18 Dose: 5,000 units Sodium Chloride (Ns Inj) 1,000 mls @ 100 mls/hr IV.CONT .Q10H [facility] Last Admin: 02/08/18 06:31 Dose: 100 mls/hr Lactulose (Lactulose Liq) 30 ml PO DAILY PRN PRN Reason: SEVERE CONSITIPATION Metoprolol Tartrate (Lopressor) 25 mg PO BID [facility] Last Admin: 02/08/18 09:18 Dose: 25 mg Multivitamins (Theragran) 1 tab PO DAILY [facility] Last Admin: 02/08/18 09:18 Dose: 1 tab Ondansetron HCl (Zofran Inj) 4 mg IV.PUSH Q6H PRN PRN Reason: NAUSEA OR VOMITING Senna/Docusate Sodium (Danyelle-Colace) 1 tab PO BID [facility] Last Admin: 02/08/18 13:03 Dose: Not Given Sennosides (Senokot) 17.2 mg PO Q12H PRN PRN Reason: Moderate Constipation Sodium Chloride (Ns Flush) 2 ml IV.FLUSH BID [facility] Last Admin: 02/08/18 13:03 Dose: Not Given Sodium Chloride (Ns Flush) 2 ml IV.FLUSH PRN PRN PRN Reason: FLUSH AFTER USING IV ACCESS Tamsulosin HCl (Flomax) 0.4 mg PO DAILY [facility] Last Admin: 02/08/18 09:18 Dose: 0.4 mg Allergies Allergy/AdvReac Type Severity Reaction Status Date / Time No Known Allergies Uncoded 02/13/09 21:12 Home Medications Medication Instructions Recorded Confirmed Type amlodipine 5 mg PO HS 02/06/18 02/06/18 History bethanechol chloride 15 mg PO QID 02/06/18 02/06/18 History bumetanide 2 mg PO DAILY 02/06/18 02/06/18 History cholecalciferol (vitamin D3) 1,000 unit PO DAILY 02/06/18 02/06/18 History [Vitamin D3] cilostazol 100 mg PO BID 02/06/18 02/06/18 History ferrous sulfate [High Potency Iron] 27 mg PO DAILY 02/06/18 02/06/18 History losartan 25 mg PO DAILY 02/06/18 02/06/18 History metoprolol tartrate 25 mg PO HS 02/06/18 02/06/18 History mkttwtlsntoa-wzla-eyyni acid 1 tab PO DAILY 02/06/18 02/06/18 History [Centrum] tamsulosin 0.4 mg PO DAILY 02/06/18 02/06/18 History Results - Labs CBC & Chem 7: 02/08/18 05:35 02/08/18 05:35 Laboratory Results - last 24 hr 02/08/18 02/08/18 02/08/18 05:35 05:35 05:35 WBC 7.3 RBC 2.85 L Hgb 9.2 L Hct 26.8 L MCV 94.2 MCH 32.3 MCHC 34.3 RDW 13.7 Plt Count 396 MPV 6.5 L Neut % (Auto) 73.9 H Lymph % (Auto) 10.4 [place] % (Auto) 11.4 H Eos % (Auto) 2.3 Baso % (Auto) 2.0 Neut # (Auto) 5.4 Lymph # (Auto) 0.8 L [place] # (Auto) 0.8 Eos # (Auto) 0.2 Baso # (Auto) 0.1 WBC Differential . Differential Comment Auto diff final ESR 83 H Sodium 140 Potassium 3.9 Chloride 104 Carbon Dioxide 24.8 Anion Gap 11 BUN 47 H Creatinine 2.65 H Estimated GFR 28 L Random Glucose 106 Calcium 7.9 L Total Bilirubin 0.8 AST 34 ALT 36 Alkaline Phosphatase 177 H Total Protein 6.7 D Albumin 2.4 L Microbiology 02/06/18 19:50 Blood - Peripheral Aerobic Blood Culture - Preliminary No growth in 2 days 02/06/18 19:50 Blood - Peripheral Anaerobic Blood Culture - Preliminary No growth in 2 days 02/06/18 19:45 Blood - Peripheral Aerobic Blood Culture - Preliminary No growth in 2 days 02/06/18 19:45 Blood - Peripheral Anaerobic Blood Culture - Preliminary No growth in 2 days ESR 83 - Imaging Impressions Foot MRI 02/07/18 00:00 CONCLUSION: 1. Large heterogeneous masslike dorsal soft tissue signal abnormality of the forefoot. This finding is not seen on the prior radiographs of 01/01/2018. High signal on the T1-weighted images but favor hematoma. Atypical appearance of infection is also in the differential diagnosis. There are low signal foci that could represent gas as no calcification is seen on radiographs. Recommend repeat right foot radiographs this time to evaluate for calcification or gas in the soft tissue. The abnormality does not have the typical appearance of an abscess on the precontrast and postcontrast T1-weighted images. 2. 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 Bone infarcts versus stress reaction of the posterior process of the calcaneus and the talus. 3. Arthritic findings of the midfoot. 4. Age-indeterminate posterior heel cutaneous ulceration with mild nonspecific adjacent posterior calcaneal bony edema but no definitive evidence of osteomyelitis. Foot MRI 02/07/18 00:00 CONCLUSION: 1. Diffuse soft tissue edema, nonspecific. 2. Apparent cellulitis of the heel pad. No abscess or perceptible osteomyelitis at this time. 3. Insertional tendinosis and enthesopathic changes of Achilles. No tear. 4. Moderate proximal plantar fasciitis without tear. Moderate size heel spur. Venous Doppler Study 02/08/18 00:00 CONCLUSION: 1. The study is negative for bilateral lower extremity deep venous thrombosis. 2. Benign-appearing lymph nodes are identified in the right groin. Assessment and Plan - Assessment (1) Gangrene Code(s): I96 - Gangrene, not elsewhere classified Status: Acute Plan: AND Possible hematoma R foot per MRI report. PLAN: ESR = 83 Do suspect infection somewhere. Gangrene present and possible hematoma per MRI. No surgery planned at this time without further information. Sutures remain in place from recent surgery, but gangrene appears to be demarcating. Needs to continue to await demarcation, and may need more proximal amputation, pending vascular workup. Await vascular recommendations.
--- NOTE | 2018-02-08 15:21 | P.PNVS ---
Subjective Subjective/Hospital Course: Referral received today I discussed the case with Dr Mcfarlane and I fully agree with her assessment and approach. Patient is not a candidate for an angiogram in face of renal insufficiency, so there is limited potential for vascular assessment. Full consult TF Sam Fernandez Objective Vital Signs / I&O: Vital Signs 02/07/18 18:00 02/07/18 19:00 02/07/18 19:53 Temperature 98.8 F 98.4 F Pulse Rate 104 H 96 H 112 H Respiratory Rate 20 Blood Pressure 122/60 180/86 H Pulse Oximetry 100 100 02/07/18 20:00 02/07/18 21:00 02/07/18 22:00 Temperature Pulse Rate 96 H 92 H 77 Respiratory Rate Blood Pressure Pulse Oximetry 02/07/18 23:00 02/08/18 00:00 02/08/18 01:00 Temperature 99.5 F Pulse Rate 73 86 86 Respiratory Rate 20 Blood Pressure 99/41 L Pulse Oximetry 99 02/08/18 02:00 02/08/18 03:00 02/08/18 04:00 Temperature 99.3 F Pulse Rate 86 90 102 H Respiratory Rate 20 Blood Pressure 133/64 Pulse Oximetry 98 02/08/18 05:00 02/08/18 06:00 02/08/18 07:00 Temperature Pulse Rate 94 H 86 82 Respiratory Rate Blood Pressure Pulse Oximetry 02/08/18 08:00 02/08/18 09:00 02/08/18 10:00 Temperature 97.1 F L Pulse Rate 90 92 H 86 Respiratory Rate 18 Blood Pressure 169/80 H Pulse Oximetry 100 02/08/18 11:00 02/08/18 12:00 Temperature 97.6 F Pulse Rate 70 68 Respiratory Rate 18 Blood Pressure 116/62 Pulse Oximetry 100 Intake & Output 02/07/18 02/08/18 02/08/18 18:59 06:59 18:59 Intake Total 1600 / 1600 1120 / 1120 Output Total 1000 / 1000 900 / 900 Balance 600 / 600 220 / 220 Weight 76.8 kg Intake: IV 1000 / 1000 1000 / 1000 NS Inj 1,000 ML @ 100 mls/hr IV 1000 / 1000 1000 / 1000 .CONT .Q10H [facility] Rx#:[id number] Oral 600 / 600 120 / 120 Output: Urine 1000 / 1000 900 / 900 Other: Date of Last Bowel Movement 02/07/18 02/08/18 # Bowel Movements 1 Laboratory Results - last 24 hr 02/08/18 02/08/18 02/08/18 05:35 05:35 05:35 WBC 7.3 RBC 2.85 L Hgb 9.2 L Hct 26.8 L MCV 94.2 MCH 32.3 MCHC 34.3 RDW 13.7 Plt Count 396 MPV 6.5 L Neut % (Auto) 73.9 H Lymph % (Auto) 10.4 [place] % (Auto) 11.4 H Eos % (Auto) 2.3 Baso % (Auto) 2.0 Neut # (Auto) 5.4 Lymph # (Auto) 0.8 L [place] # (Auto) 0.8 Eos # (Auto) 0.2 Baso # (Auto) 0.1 WBC Differential . Differential Comment Auto diff final ESR 83 H Sodium 140 Potassium 3.9 Chloride 104 Carbon Dioxide 24.8 Anion Gap 11 BUN 47 H Creatinine 2.65 H Estimated GFR 28 L Random Glucose 106 Calcium 7.9 L Total Bilirubin 0.8 AST 34 ALT 36 Alkaline Phosphatase 177 H Total Protein 6.7 D Albumin 2.4 L Microbiology 02/06/18 19:50 Aerobic Blood Culture - Preliminary Blood - Peripheral No growth in 2 days Anaerobic Blood Culture - Preliminary No growth in 2 days 02/06/18 19:45 Aerobic Blood Culture - Preliminary Blood - Peripheral No growth in 2 days Anaerobic Blood Culture - Preliminary No growth in 2 days Impressions Chest X-Ray 02/06/18 19:47 CONCLUSION: No evidence of acute cardiopulmonary disease. Head CT 02/06/18 19:47 CONCLUSION: 1. No acute intracranial abnormalities. Chronic white matter ischemic changes. Remote lacunar infarct right cerebellar hemisphere. . Foot MRI 02/07/18 00:00 CONCLUSION: 1. Large heterogeneous masslike dorsal soft tissue signal abnormality of the forefoot. This finding is not seen on the prior radiographs of 01/01/2018. High signal on the T1-weighted images but favor hematoma. Atypical appearance of infection is also in the differential diagnosis. There are low signal foci that could represent gas as no calcification is seen on radiographs. Recommend repeat right foot radiographs this time to evaluate for calcification or gas in the soft tissue. The abnormality does not have the typical appearance of an abscess on the precontrast and postcontrast T1-weighted images. 2. 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 Bone infarcts versus stress reaction of the posterior process of the calcaneus and the talus. 3. Arthritic findings of the midfoot. 4. Age-indeterminate posterior heel cutaneous ulceration with mild nonspecific adjacent posterior calcaneal bony edema but no definitive evidence of osteomyelitis. Foot MRI 02/07/18 00:00 CONCLUSION: 1. Diffuse soft tissue edema, nonspecific. 2. Apparent cellulitis of the heel pad. No abscess or perceptible osteomyelitis at this time. 3. Insertional tendinosis and enthesopathic changes of Achilles. No tear. 4. Moderate proximal plantar fasciitis without tear. Moderate size heel spur. Venous Doppler Study 02/08/18 00:00 CONCLUSION: 1. The study is negative for bilateral lower extremity deep venous thrombosis. 2. Benign-appearing lymph nodes are identified in the right groin.
--- NOTE | 2018-02-08 16:38 | P.PNPOD ---
Physical Exam Vital signs: Vital Signs 02/07/18 18:00 02/07/18 19:00 02/07/18 19:53 Temperature 98.8 F 98.4 F Pulse Rate 104 H 96 H 112 H Respiratory Rate 20 Blood Pressure 122/60 180/86 H Pulse Oximetry 100 100 02/07/18 20:00 02/07/18 21:00 02/07/18 22:00 Temperature Pulse Rate 96 H 92 H 77 Respiratory Rate Blood Pressure Pulse Oximetry 02/07/18 23:00 02/08/18 00:00 02/08/18 01:00 Temperature 99.5 F Pulse Rate 73 86 86 Respiratory Rate 20 Blood Pressure 99/41 L Pulse Oximetry 99 02/08/18 02:00 02/08/18 03:00 02/08/18 04:00 Temperature 99.3 F Pulse Rate 86 90 102 H Respiratory Rate 20 Blood Pressure 133/64 Pulse Oximetry 98 02/08/18 05:00 02/08/18 06:00 02/08/18 07:00 Temperature Pulse Rate 94 H 86 82 Respiratory Rate Blood Pressure Pulse Oximetry 02/08/18 08:00 02/08/18 09:00 02/08/18 10:00 Temperature 97.1 F L Pulse Rate 90 92 H 86 Respiratory Rate 18 Blood Pressure 169/80 H Pulse Oximetry 100 02/08/18 11:00 02/08/18 12:00 Temperature 97.6 F Pulse Rate 70 68 Respiratory Rate 18 Blood Pressure 116/62 Pulse Oximetry 100 Intake & Output 02/07/18 02/08/18 02/08/18 18:59 06:59 18:59 Intake Total 1600 / 1600 1120 / 1120 Output Total 1000 / 1000 900 / 900 Balance 600 / 600 220 / 220 Weight 76.8 kg Intake: IV 1000 / 1000 1000 / 1000 NS Inj 1,000 ML @ 100 mls/hr IV 1000 / 1000 1000 / 1000 .CONT .Q10H [facility] Rx#:[id number] Oral 600 / 600 120 / 120 Output: Urine 1000 / 1000 900 / 900 Other: Date of Last Bowel Movement 02/07/18 02/08/18 # Bowel Movements 1 Medications and Allergies Active Medications: Active Medications Acetaminophen (Tylenol) 650 mg PO Q4H PRN PRN Reason: Temp > 100.4 Al Hydroxide/Mg Hydroxide (Milk Of Magnesia Liq) 30 ml PO Q12H PRN PRN Reason: Mild Constipation Bisacodyl (Dulcolax Supp) 10 mg RECTAL DAILY PRN PRN Reason: SEVERE CONSITIPATION Bumetanide (Bumex) 2 mg PO DAILY [facility] Last Admin: 02/08/18 09:18 Dose: 2 mg Diltiazem HCl (Cardizem Cd 24hr) 240 mg PO DAILY [facility] Last Admin: 02/08/18 09:18 Dose: 240 mg Heparin Sodium (Porcine) (Heparin Inj) 5,000 units SQ Q12HR [facility] Last Admin: 02/08/18 09:18 Dose: 5,000 units Sodium Chloride (Ns Inj) 1,000 mls @ 100 mls/hr IV.CONT .Q10H [facility] Last Admin: 02/08/18 06:31 Dose: 100 mls/hr Lactulose (Lactulose Liq) 30 ml PO DAILY PRN PRN Reason: SEVERE CONSITIPATION Metoprolol Tartrate (Lopressor) 25 mg PO BID [facility] Last Admin: 02/08/18 09:18 Dose: 25 mg Multivitamins (Theragran) 1 tab PO DAILY [facility] Last Admin: 02/08/18 09:18 Dose: 1 tab Ondansetron HCl (Zofran Inj) 4 mg IV.PUSH Q6H PRN PRN Reason: NAUSEA OR VOMITING Senna/Docusate Sodium (Danyelle-Colace) 1 tab PO BID [facility] Last Admin: 02/08/18 13:03 Dose: Not Given Sennosides (Senokot) 17.2 mg PO Q12H PRN PRN Reason: Moderate Constipation Sodium Chloride (Ns Flush) 2 ml IV.FLUSH BID [facility] Last Admin: 02/08/18 13:03 Dose: Not Given Sodium Chloride (Ns Flush) 2 ml IV.FLUSH PRN PRN PRN Reason: FLUSH AFTER USING IV ACCESS Tamsulosin HCl (Flomax) 0.4 mg PO DAILY [facility] Last Admin: 02/08/18 09:18 Dose: 0.4 mg Allergies Allergy/AdvReac Type Severity Reaction Status Date / Time No Known Allergies Uncoded 02/13/09 21:12 Home Medications Medication Instructions Recorded Confirmed Type amlodipine 5 mg PO HS 02/06/18 02/06/18 History bethanechol chloride 15 mg PO QID 02/06/18 02/06/18 History bumetanide 2 mg PO DAILY 02/06/18 02/06/18 History cholecalciferol (vitamin D3) 1,000 unit PO DAILY 02/06/18 02/06/18 History [Vitamin D3] cilostazol 100 mg PO BID 02/06/18 02/06/18 History ferrous sulfate [High Potency Iron] 27 mg PO DAILY 02/06/18 02/06/18 History losartan 25 mg PO DAILY 02/06/18 02/06/18 History metoprolol tartrate 25 mg PO HS 02/06/18 02/06/18 History wsdkmvpzefba-qfkv-nrgat acid 1 tab PO DAILY 02/06/18 02/06/18 History [Centrum] tamsulosin 0.4 mg PO DAILY 02/06/18 02/06/18 History Results - Labs CBC & Chem 7: 02/08/18 05:35 02/08/18 05:35 Laboratory Results - last 24 hr 02/08/18 02/08/18 02/08/18 05:35 05:35 05:35 WBC 7.3 RBC 2.85 L Hgb 9.2 L Hct 26.8 L MCV 94.2 MCH 32.3 MCHC 34.3 RDW 13.7 Plt Count 396 MPV 6.5 L Neut % (Auto) 73.9 H Lymph % (Auto) 10.4 [place] % (Auto) 11.4 H Eos % (Auto) 2.3 Baso % (Auto) 2.0 Neut # (Auto) 5.4 Lymph # (Auto) 0.8 L [place] # (Auto) 0.8 Eos # (Auto) 0.2 Baso # (Auto) 0.1 WBC Differential . Differential Comment Auto diff final ESR 83 H Sodium 140 Potassium 3.9 Chloride 104 Carbon Dioxide 24.8 Anion Gap 11 BUN 47 H Creatinine 2.65 H Estimated GFR 28 L Random Glucose 106 Calcium 7.9 L Total Bilirubin 0.8 AST 34 ALT 36 Alkaline Phosphatase 177 H Total Protein 6.7 D Albumin 2.4 L Microbiology 02/06/18 19:50 Blood - Peripheral Aerobic Blood Culture - Preliminary No growth in 2 days 02/06/18 19:50 Blood - Peripheral Anaerobic Blood Culture - Preliminary No growth in 2 days 02/06/18 19:45 Blood - Peripheral Aerobic Blood Culture - Preliminary No growth in 2 days 02/06/18 19:45 Blood - Peripheral Anaerobic Blood Culture - Preliminary No growth in 2 days - Imaging Impressions Foot MRI 02/07/18 00:00 CONCLUSION: 1. Large heterogeneous masslike dorsal soft tissue signal abnormality of the forefoot. This finding is not seen on the prior radiographs of 01/01/2018. High signal on the T1-weighted images but favor hematoma. Atypical appearance of infection is also in the differential diagnosis. There are low signal foci that could represent gas as no calcification is seen on radiographs. Recommend repeat right foot radiographs this time to evaluate for calcification or gas in the soft tissue. The abnormality does not have the typical appearance of an abscess on the precontrast and postcontrast T1-weighted images. 2. 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 Bone infarcts versus stress reaction of the posterior process of the calcaneus and the talus. 3. Arthritic findings of the midfoot. 4. Age-indeterminate posterior heel cutaneous ulceration with mild nonspecific adjacent posterior calcaneal bony edema but no definitive evidence of osteomyelitis. Foot MRI 02/07/18 00:00 CONCLUSION: 1. Diffuse soft tissue edema, nonspecific. 2. Apparent cellulitis of the heel pad. No abscess or perceptible osteomyelitis at this time. 3. Insertional tendinosis and enthesopathic changes of Achilles. No tear. 4. Moderate proximal plantar fasciitis without tear. Moderate size heel spur. Venous Doppler Study 02/08/18 00:00 CONCLUSION: 1. The study is negative for bilateral lower extremity deep venous thrombosis. 2. Benign-appearing lymph nodes are identified in the right groin. Assessment and Plan - Assessment (1) Gangrene Code(s): I96 - Gangrene, not elsewhere classified Status: Acute Plan: AND Possible hematoma R foot per MRI report. PLAN: ESR = 83 Do suspect infection somewhere. Gangrene present and possible hematoma per MRI Discussed with vascular and will proceed with Incision and drainage right dorsal foot and cultures. Ordered arterial doppler with TBI NPO after midnight
--- NOTE | 2018-02-08 17:45 | ECG ---
Date Performed: 02/06/2018 Time Performed: 19:49:47 PTAGE: 82 years EKG: Sinus tachycardia with episode of atrial tachycardia BORDERLINE LEFT AXIS DEVIATION MODERAT E VOLTAGE CRITERIA FOR LVH, CONSIDER NORMAL VARIANT NONSPECIFIC ST & T-WAVE ABNORMALITY ABNORMAL RHYT HM ECG NO PREVIOUS TRACING DOCTOR: Navin Zamora Interpretating Date/Time 02/08/2018 17:31:43
[2018-02-09] MEDS: Sod Chloride 0.9% Inj 1,000 ML IV.CONT SCH ×3 (04:07→20:28)
[2018-02-09 05:04] LABS: Baso # (Auto) 0.1 th/mm3 (0.0-0.2); Baso % (Auto) 1.4 % (0.0-2.0); Eos # (Auto) 0.3 th/mm3 (0.0-0.4); Eos % (Auto) 4.3 % (0.0-4.0); Hematocrit 24.3 % (39.0-51.0); Hemoglobin 8.6 gm/dL (13.0-17.0); Lymph # (Auto) 1.3 th/mm3 (1.0-4.8); Mean Corpuscular HGB Conc 35.3 % (32.0-36.0); Mean Corpuscular Hemoglobin 32.7 pg (27.0-34.0); Mean Corpuscular Volume 92.6 fL (80.0-100.0); Mean Platelet Volume 6.7 fL (7.0-11.0); Mono # (Auto) 0.9 th/mm3 (0.0-0.9); Mono % (Auto) 11.1 % (0.0-8.0); Neut # (Auto) 5.2 th/mm3 (1.8-7.7); Neut % (Auto) 66.2 % (16.0-70.0); Platelet Count 353 th/mm3 (150-450); Red Blood Count 2.63 mil/mm3 (4.50-5.90); Red Cell Distribution Width 13.4 % (11.6-17.2); White Blood Count 7.9 th/mm3 (4.0-11.0)
[2018-02-09 05:20] LABS: Albumin 2.3 g/dL (3.4-5.0); Anion Gap 7 meq/L (5-15); Aspartate Aminotransferase 31 U/L (15-37); Blood Urea Nitrogen 39 mg/dL (7-18); Calcium 7.9 mg/dL (8.5-10.1); Chloride 106 meq/L (98-107); Glomerular Filtration Rate 32 mL/min (>89); Glucose,Random 88 mg/dL (74-106); Potassium 3.8 meq/L (3.5-5.1); Sodium 137 meq/L (136-145)
[2018-02-09 05:22] LABS: Alanine Aminotransferase 30 U/L (12-78)
[2018-02-09 05:24] LABS: Alkaline Phosphatase 159 U/L (45-117); Total Protein 6.2 g/dL (6.4-8.2)
[2018-02-09] MEDS: Metoprolol Tartrate 25 MG Tablet PO SCH ×2 (08:21→20:28)
--- NOTE | 2018-02-09 09:35 | P.BOP ---
- Preoperative Diagnosis (1) Abscess of right foot (2) Traumatic hematoma of right foot - Postoperative Diagnosis (1) Abscess of right foot (2) Traumatic hematoma of right foot Date of procedure: 02/09/18 Procedure: 1. Incision and drainage of abscess vs hematoma right foot Incision made over dorsal fluctuant area right dorsal forefoot and hematoma tissue noted. Culture taken. Irrigation with 3L normal saline Reapproximation with 2-0 nylon suture Dressing with 4x4, abd, cast padding, light queenie with no compression. Of note, heel is necrotic, lateral, medial, and dorsal foot all necrotic No bleeding noted. No tourniquet utilized 2g ancef IV preop DISPOSITION: Await vascular evaluation. Discussed with patient and his son that gangrenous changes are noted to hallux and 5th toes on that foot and that limb salvage options will be discussed with them pending vascular evaluation. Discussed that today's surgery was only to eliminate foot as source of infection and get cultures to assist with care No further foot surgery is possible. Needs proximal amp, BKA vs AKA Implants: n/a Anesthesia: MAC Surgeon: Ej Mfcarlane DPM Estimated blood loss (mL): 10 Pathology: other (culture right foot) Condition: stable Disposition: PACU
[2018-02-09] MEDS ORDERED: ceFAZolin 2 GM Premix Inj 2 GM/50 ML PIGGYBACK IV.SIG ONE (10:20)
[2018-02-09] MEDS ORDERED: fentaNYL Citrate Inj 100 MCG/2 ML Ampul ONE (10:34)
[2018-02-09] MEDS: Heparin - SQ 10,000 UNITS/ML Vial SQ SCH ×2 (11:55→22:32)
[2018-02-09] MEDS: Senna/Docusate Sodium 8.6/50 MG Tablet PO SCH ×2 (11:56→20:28)
[2018-02-09] MEDS: dilTIAZem CD 240 MG Capsule PO SCH (11:57)
--- NOTE | 2018-02-09 14:46 | P.PNIM ---
Subjective Interval history: No distress today. Pain controlled. No fevers. Physical Exam Vital signs: Last Vital Signs Temp 98.1 F 02/09/18 12:00 Pulse 74 02/09/18 12:00 Resp 18 02/09/18 12:00 BP 131/64 02/09/18 12:00 Pulse Ox 100 02/09/18 12:00 Intake & Output 02/07/18 02/08/18 02/09/18 02/10/18 06:59 06:59 06:59 06:59 Intake Total 240 / 240 2720 / 2720 3240 / 3240 1350 / 1350 Output Total 200 / 200 1900 / 1900 2400 / 2400 10 Balance 40 / 40 820 / 820 840 / 840 1340 / 1340 Weight 76.9 kg 76.8 kg 75.9 kg Narrative: GENERAL: NAD, A&Ox3 HEAD: Normocephalic. NECK: Supple, trachea midline. No lymphadenopathy. EYES: No scleral icterus. No injection or drainage. CARDIOVASCULAR: Regular rate and rhythm without murmurs, gallops, or rubs. RESPIRATORY: Breath sounds equal bilaterally. No accessory muscle use. GASTROINTESTINAL: Abdomen soft, non-tender, nondistended. MUSCULOSKELETAL: No cyanosis, or edema. Both lower extremities show evidence of peripheral vascular disease. The right lower extremity is significantly more compromised than the left lower extremity. Right lower extremity shows all wounds were stitches remain in evidence of necrotic or gangrenous tissue at some toes and potentially the forefoot and heel. No odor, no purulent discharge , no evidence of wet gangrene but the right lower extremities shows diffuse scaling which could hide some disease. SKIN: Warm and dry. NEURO: No focal neurological deficits. Urinary Catheter Management Straight: Cath placed during this visit: no Results Labs CBC & Chem 7: 02/09/18 04:17 02/09/18 04:17 Labs: Microbiology 02/06/18 19:50 Blood - Peripheral Aerobic Blood Culture - Preliminary No growth in 3 days 02/06/18 19:50 Blood - Peripheral Anaerobic Blood Culture - Preliminary No growth in 3 days 02/06/18 19:45 Blood - Peripheral Aerobic Blood Culture - Preliminary No growth in 3 days 02/06/18 19:45 Blood - Peripheral Anaerobic Blood Culture - Preliminary No growth in 3 days Assessment and Plan Plan 82-year-old male admitted secondary to A. fib RVR and evidence of necrotic disease at right lower extremity No acute changes overnight. Podiatry and Vascular Surgeon following. Surgical intervention at right foot planned. No recurrence of A. fib RVR. Continue to follow on telemetry. A. fib RVR Improved Audiology following Amlodipine discontinued Diltiazem initiated Follow on telemetry Right lower extremity necrosis Podiatry following Vascular surgeon consulted Obtain venous Doppler ultrasound of bilateral lower extremities Obtain arterial flow studies of bilateral lower extremities MRA of bilateral lower extremities CTA runoff study deferred as patient's kidney disease prohibits safe use of contrast Possible need for vascular consult, will await study findings Wound care team following Hypertension Continue baseline treatment Follow blood pressures Adjust treatments as needed Anemia Monitor blood counts Follow CBC Generalized weakness Failure to thrive Physical therapy following DVT prophylaxis Heparin
[2018-02-10 08:47] LABS: Baso # (Auto) 0.1 th/mm3 (0.0-0.2); Eos # (Auto) 0.3 th/mm3 (0.0-0.4); Eos % (Auto) 3.8 % (0.0-4.0); Hematocrit 27.5 % (39.0-51.0); Hemoglobin 9.4 gm/dL (13.0-17.0); Lymph # (Auto) 1.1 th/mm3 (1.0-4.8); Lymph % (Auto) 12.2 % (9.0-44.0); Mean Corpuscular HGB Conc 34.3 % (32.0-36.0); Mean Corpuscular Volume 93.4 fL (80.0-100.0); Mean Platelet Volume 6.6 fL (7.0-11.0); Mono # (Auto) 0.8 th/mm3 (0.0-0.9); Mono % (Auto) 9.8 % (0.0-8.0); Neut # (Auto) 6.3 th/mm3 (1.8-7.7); Neut % (Auto) 73.2 % (16.0-70.0); Platelet Count 349 th/mm3 (150-450); Red Blood Count 2.94 mil/mm3 (4.50-5.90); Red Cell Distribution Width 13.4 % (11.6-17.2); White Blood Count 8.6 th/mm3 (4.0-11.0)
[2018-02-10 09:05] LABS: Albumin 2.4 g/dL (3.4-5.0); Anion Gap 6 meq/L (5-15); Aspartate Aminotransferase 33 U/L (15-37); Blood Urea Nitrogen 32 mg/dL (7-18); Carbon Dioxide 25.6 meq/L (21.0-32.0); Chloride 106 meq/L (98-107); Glomerular Filtration Rate 34 mL/min (>89); Glucose,Random 94 mg/dL (74-106); Potassium 3.9 meq/L (3.5-5.1); Sodium 138 meq/L (136-145)
[2018-02-10 09:06] LABS: Alanine Aminotransferase 27 U/L (12-78)
[2018-02-10 09:07] LABS: Alkaline Phosphatase 165 U/L (45-117); Total Protein 6.5 g/dL (6.4-8.2)
[2018-02-10] MEDS: Sod Chloride 0.9% Inj 1,000 ML IV.CONT SCH ×2 (09:07→18:19)
[2018-02-10] MEDS: Metoprolol Tartrate 25 MG Tablet PO SCH ×2 (09:09→23:02)
[2018-02-10] MEDS: Senna/Docusate Sodium 8.6/50 MG Tablet PO SCH ×2 (09:09→23:01)
[2018-02-10] MEDS: Heparin - SQ 10,000 UNITS/ML Vial SQ SCH ×2 (09:10→22:59)
[2018-02-10] MEDS: dilTIAZem CD 240 MG Capsule PO SCH (09:10)
--- NOTE | 2018-02-10 14:27 | ECHRPT ---
EXAM DATE: 02/10/2018 1:58 PM EST AGE/SEX: 82 years / Male INDICATIONS: NEW ONSET AFIB WITH RVR, HYPERTENSIVE URGENCY CLINICAL DATA: This is the patient's initial encounter. Patient reports that signs and symptoms have been present for 1 month and indicates a pain score of 2/10. MEDICAL/SURGICAL HISTORY: . AFIB WITH RVRRLE NECROSISHYPERTENSIONANEMIA . UNKNOWN COMPARISON: No prior exams available for comparison. TECHNIQUE: Five-station segmental examination of the lower extremities was performed. Pulsed-cuff wa veform tracings and pressures were recorded. Ankle-brachial indices and toe-brachial indices were addi culated. PRESSURES (mmHg): Brachial (arm) : RIGHT: 123, LEFT: IV SITE Lower Thigh : RIGHT: 127, LEFT: 129 Calf : RIGHT: 74, LEFT: 96 Ankle : RIGHT: 66, LEFT: 82 KATE : RIGHT: 0.54, LEFT: 0.67 Toe : RIGHT: 0, LEFT: 43 TBI : RIGHT: 0.00, LEFT: 0.35 RIGHT: , LEFT: FINDINGS: Pulsed-Cuff Waveform: Decreased amplitude at the ankle and toe particularly on the right. Other: None. CONCLUSION: 1. Moderately decreased ankle-brachial indices with significant pressure gradients across the thighs bilaterally consistent with femoral outflow disease. 2. Additional decreased pressures across the calves and left toe consistent with some degree of smal l vessel disease. 3. Recommend CT angiography for further evaluation. Electronically signed by: Brenton Morillo MD 02/10/2018 2:26 PM EST
[2018-02-10] MEDS ORDERED: Sodium Chlor 0.9% Inj 500 ML IV.CONT ONE (14:45)
[2018-02-10] MEDS ORDERED: Chlorhexidine Gluconate 2% 1 Pack (2 Cloths) TOPICAL ONE (14:45)
--- NOTE | 2018-02-10 15:09 | P.PNVS ---
Subjective Subjective/Hospital Course: Referral received today I discussed the case with Dr Mcfarlane and I fully agree with her assessment and approach. Patient is not a candidate for an angiogram in face of renal insufficiency, so there is limited potential for vascular assessment. Full consult JUAN Fernandez 02/10/2018 Patient with gangrene of the right foot the nonsalvageable foot at this time I reviewed all diagnostic procedures and I agree with Dr. Chandler on that this is a situation that cannot be remedied by anything but right below-knee amputation Full consult has been dictated and patient is scheduled to go to the OR today Objective Vital Signs / I&O: Vital Signs 02/09/18 16:00 02/09/18 20:00 02/09/18 21:15 Temperature 98.4 F 98.4 F 98.1 F Pulse Rate 74 79 68 Respiratory Rate 18 18 15 Blood Pressure 150/71 H 144/76 H 140/63 Pulse Oximetry 100 98 97 02/09/18 21:40 02/10/18 00:00 02/10/18 04:00 Temperature 98.8 F 97.9 F Pulse Rate 72 60 99 H Respiratory Rate 17 18 Blood Pressure 148/72 H 153/72 H Pulse Oximetry 97 98 02/10/18 08:00 02/10/18 12:00 Temperature 98.3 F 98.2 F Pulse Rate 82 75 Respiratory Rate 18 18 Blood Pressure 162/77 H 155/74 H Pulse Oximetry 100 99 Intake & Output 02/09/18 02/10/18 02/10/18 18:59 06:59 18:59 Intake Total 2350 / 2350 1943 / 1943 297 / 297 Output Total 2260 / 2260 1900 / 1900 1075 / 1075 Balance 90 / 90 43 / 43 -778 / -778 Weight 86.8 kg Intake: IV 1050 / 1050 1703 / 1703 297 / 297 NS Inj 1,000 ML @ 100 mls/hr IV 1000 / 1000 1703 / 1703 297 / 297 .CONT .Q10H [facility] Rx#:[id number] Ancef 2 GM Premix Inj 2 gm In 50 / 50 50 ml @ 100 mls/hr IV.SIG ONCE ONE Rx#:[id number] Oral 1000 / 1000 240 / 240 Anesthesia Amount 300 / 300 Output: Urine 2250 / 2250 1900 / 1900 Estimated Blood Loss 10 / 10 Urine Amount (Catheter) 1075 / 1075 Indwelling Urethral Catheter 1075 / 1075 Other: Date of Last Bowel Movement 02/09/18 02/09/18 # Bowel Movements 1 Weight On Admission 86.8 kg Laboratory Results - last 24 hr 02/10/18 02/10/18 07:56 07:56 WBC 8.6 RBC 2.94 L Hgb 9.4 L Hct 27.5 L MCV 93.4 MCH 32.0 MCHC 34.3 RDW 13.4 Plt Count 349 MPV 6.6 L Neut % (Auto) 73.2 H Lymph % (Auto) 12.2 [place] % (Auto) 9.8 H Eos % (Auto) 3.8 Baso % (Auto) 1.0 Neut # (Auto) 6.3 Lymph # (Auto) 1.1 [place] # (Auto) 0.8 Eos # (Auto) 0.3 Baso # (Auto) 0.1 WBC Differential . Differential Comment Auto diff final Sodium 138 Potassium 3.9 Chloride 106 Carbon Dioxide 25.6 Anion Gap 6 BUN 32 H Creatinine 2.23 H Estimated GFR 34 L Random Glucose 94 Calcium 8.0 L Total Bilirubin 0.7 AST 33 ALT 27 Alkaline Phosphatase 165 H Total Protein 6.5 Albumin 2.4 L Microbiology 02/09/18 10:17 Gram Stain - Final Wound - Foot Wound Culture - Preliminary gram negative rods Group D Enterococcus 02/06/18 19:50 Aerobic Blood Culture - Preliminary Blood - Peripheral No growth in 4 days Anaerobic Blood Culture - Preliminary No growth in 4 days 02/06/18 19:45 Aerobic Blood Culture - Preliminary Blood - Peripheral No growth in 4 days Anaerobic Blood Culture - Preliminary No growth in 4 days 02/09/18 10:17 Fungal Smear - Final Wound - Foot No fungal elements seen Impressions Extremity Arterial Study 02/08/18 00:00 CONCLUSION: 1. Moderately decreased ankle-brachial indices with significant pressure gradients across the thighs bilaterally consistent with femoral outflow disease. 2. Additional decreased pressures across the calves and left toe consistent with some degree of small vessel disease. 3. Recommend CT angiography for further evaluation.
--- NOTE | 2018-02-10 15:13 | P.PNPOD ---
Physical Exam Vital signs: Vital Signs 02/09/18 16:00 02/09/18 20:00 02/09/18 21:15 Temperature 98.4 F 98.4 F 98.1 F Pulse Rate 74 79 68 Respiratory Rate 18 18 15 Blood Pressure 150/71 H 144/76 H 140/63 Pulse Oximetry 100 98 97 02/09/18 21:40 02/10/18 00:00 02/10/18 04:00 Temperature 98.8 F 97.9 F Pulse Rate 72 60 99 H Respiratory Rate 17 18 Blood Pressure 148/72 H 153/72 H Pulse Oximetry 97 98 02/10/18 08:00 02/10/18 12:00 Temperature 98.3 F 98.2 F Pulse Rate 82 75 Respiratory Rate 18 18 Blood Pressure 162/77 H 155/74 H Pulse Oximetry 100 99 Intake & Output 02/09/18 02/10/18 02/10/18 18:59 06:59 18:59 Intake Total 2350 / 2350 1943 / 1943 297 / 297 Output Total 2260 / 2260 1900 / 1900 1075 / 1075 Balance 90 / 90 43 / 43 -778 / -778 Weight 86.8 kg Intake: IV 1050 / 1050 1703 / 1703 297 / 297 NS Inj 1,000 ML @ 100 mls/hr IV 1000 / 1000 1703 / 1703 297 / 297 .CONT .Q10H JORGE Rx#:[id number] Ancef 2 GM Premix Inj 2 gm In 50 / 50 50 ml @ 100 mls/hr IV.SIG ONCE ONE Rx#:[id number] Oral 1000 / 1000 240 / 240 Anesthesia Amount 300 / 300 Output: Urine 2250 / 2250 1900 / 1900 Estimated Blood Loss 10 / 10 Urine Amount (Catheter) 1075 / 1075 Indwelling Urethral Catheter 1075 / 1075 Other: Date of Last Bowel Movement 02/09/18 02/09/18 # Bowel Movements 1 Weight On Admission 86.8 kg Medications and Allergies Active Medications: Active Medications Acetaminophen (Tylenol) 650 mg PO Q4H PRN PRN Reason: Temp > 100.4 Last Admin: 02/09/18 20:31 Dose: 650 mg Al Hydroxide/Mg Hydroxide (Milk Of Magnesia Liq) 30 ml PO Q12H PRN PRN Reason: Mild Constipation Bisacodyl (Dulcolax Supp) 10 mg RECTAL DAILY PRN PRN Reason: SEVERE CONSITIPATION Bumetanide (Bumex) 2 mg PO DAILY [facility] Last Admin: 02/10/18 09:09 Dose: 2 mg Diltiazem HCl (Cardizem Cd 24hr) 240 mg PO DAILY [facility] Last Admin: 02/10/18 09:10 Dose: 240 mg Heparin Sodium (Porcine) (Heparin Inj) 5,000 units SQ Q12HR [facility] Last Admin: 02/10/18 09:10 Dose: 5,000 units Sodium Chloride (Ns Inj) 1,000 mls @ 100 mls/hr IV.CONT .Q10H [facility] Last Admin: 02/10/18 09:07 Dose: 100 mls/hr Lactated Ringer's (Lr 1000 Ml Inj) 1,000 mls @ 30 mls/hr IV.CONT .Q24H ONE Stop: 02/11/18 14:44 Sodium Chloride (Ns Inj) 500 mls @ 30 mls/hr IV.CONT .[id number] ONE Stop: 02/11/18 07:24 Lactulose (Lactulose Liq) 30 ml PO DAILY PRN PRN Reason: SEVERE CONSITIPATION Metoprolol Tartrate (Lopressor) 25 mg PO BID [facility] Last Admin: 02/10/18 09:09 Dose: 25 mg Multivitamins (Theragran) 1 tab PO DAILY [facility] Last Admin: 02/10/18 09:09 Dose: 1 tab Ondansetron HCl (Zofran Inj) 4 mg IV.PUSH Q6H PRN PRN Reason: NAUSEA OR VOMITING Senna/Docusate Sodium (Danyelle-Colace) 1 tab PO BID [facility] Last Admin: 02/10/18 09:09 Dose: 1 tab Sennosides (Senokot) 17.2 mg PO Q12H PRN PRN Reason: Moderate Constipation Sodium Chloride (Ns Flush) 2 ml IV.FLUSH BID [facility] Last Admin: 02/10/18 09:10 Dose: 2 ml Sodium Chloride (Ns Flush) 2 ml IV.FLUSH PRN PRN PRN Reason: FLUSH AFTER USING IV ACCESS Tamsulosin HCl (Flomax) 0.4 mg PO DAILY [facility] Last Admin: 02/10/18 09:09 Dose: 0.4 mg Allergies Allergy/AdvReac Type Severity Reaction Status Date / Time No Known Allergies Uncoded 02/13/09 21:12 Home Medications Medication Instructions Recorded Confirmed Type amlodipine 5 mg PO HS 02/06/18 02/06/18 History bethanechol chloride 15 mg PO QID 02/06/18 02/06/18 History bumetanide 2 mg PO DAILY 02/06/18 02/06/18 History cholecalciferol (vitamin D3) 1,000 unit PO DAILY 02/06/18 02/06/18 History [Vitamin D3] cilostazol 100 mg PO BID 02/06/18 02/06/18 History ferrous sulfate [High Potency Iron] 27 mg PO DAILY 02/06/18 02/06/18 History losartan 25 mg PO DAILY 02/06/18 02/06/18 History metoprolol tartrate 25 mg PO HS 02/06/18 02/06/18 History [id number]-[id number] acid 1 tab PO DAILY 02/06/18 02/06/18 History [Centrum] tamsulosin 0.4 mg PO DAILY 02/06/18 02/06/18 History Results - Labs CBC & Chem 7: 02/10/18 07:56 02/10/18 07:56 Laboratory Results - last 24 hr 02/10/18 02/10/18 07:56 07:56 WBC 8.6 RBC 2.94 L Hgb 9.4 L Hct 27.5 L MCV 93.4 MCH 32.0 MCHC 34.3 RDW 13.4 Plt Count 349 MPV 6.6 L Neut % (Auto) 73.2 H Lymph % (Auto) 12.2 [place] % (Auto) 9.8 H Eos % (Auto) 3.8 Baso % (Auto) 1.0 Neut # (Auto) 6.3 Lymph # (Auto) 1.1 [place] # (Auto) 0.8 Eos # (Auto) 0.3 Baso # (Auto) 0.1 WBC Differential . Differential Comment Auto diff final Sodium 138 Potassium 3.9 Chloride 106 Carbon Dioxide 25.6 Anion Gap 6 BUN 32 H Creatinine 2.23 H Estimated GFR 34 L Random Glucose 94 Calcium 8.0 L Total Bilirubin 0.7 AST 33 ALT 27 Alkaline Phosphatase 165 H Total Protein 6.5 Albumin 2.4 L Microbiology 02/09/18 10:17 Wound - Foot Gram Stain - Final 02/09/18 10:17 Wound - Foot Wound Culture - Preliminary gram negative rods Group D Enterococcus 02/06/18 19:50 Blood - Peripheral Aerobic Blood Culture - Preliminary No growth in 4 days 02/06/18 19:50 Blood - Peripheral Anaerobic Blood Culture - Preliminary No growth in 4 days 02/06/18 19:45 Blood - Peripheral Aerobic Blood Culture - Preliminary No growth in 4 days 02/06/18 19:45 Blood - Peripheral Anaerobic Blood Culture - Preliminary No growth in 4 days 02/09/18 10:17 Wound - Foot Fungal Smear - Final No fungal elements seen - Imaging Impressions Extremity Arterial Study 02/08/18 00:00 CONCLUSION: 1. Moderately decreased ankle-brachial indices with significant pressure gradients across the thighs bilaterally consistent with femoral outflow disease. 2. Additional decreased pressures across the calves and left toe consistent with some degree of small vessel disease. 3. Recommend CT angiography for further evaluation. Assessment and Plan - Assessment (1) Gangrene Code(s): I96 - Gangrene, not elsewhere classified Status: Acute (2) Abscess of right foot Code(s): L02.611 - Cutaneous abscess of right foot Status: Acute (3) Traumatic hematoma of right foot Code(s): S90.31XA - Contusion of right foot, initial encounter Status: Acute - Plan In surgery yesterday, patient was found to have no active bleeding to right foot and extensive necrosis to medial, lateral and dorsal foot, as well as necrotic heel. The foot was also cool to touch yesterday. I had discussed with patient and, with his permission, his emergency contacts that he would likely need more proximal amputation this week due to extensive necrosis and avascularity of the foot. I strongly agree that patient will benefit from below-knee amputation as soon as possible.
--- NOTE | 2018-02-10 16:16 | P.PNIM ---
Subjective Interval history: Patient reports he is having some pain on the right foot. He has been seen by vascular surgery and he agreed to BKA. The procedure is scheduled for this afternoon. Physical Exam Vital signs: Last Vital Signs Temp 98.2 F 02/10/18 12:00 Pulse 75 02/10/18 12:00 Resp 18 02/10/18 12:00 BP 155/74 H 02/10/18 12:00 Pulse Ox 99 02/10/18 12:00 Intake & Output 02/08/18 02/09/18 02/10/18 02/11/18 06:59 06:59 06:59 06:59 Intake Total 2720 / 2720 3240 / 3240 4293 / 4293 297 / 297 Output Total 1900 / 1900 2400 / 2400 4160 / 4160 1075 / 1075 Balance 820 / 820 840 / 840 133 / 133 -778 / -778 Weight 76.8 kg 75.9 kg 86.8 kg Narrative: GENERAL: NAD, A&Ox3 CARDIOVASCULAR: Regular rate and rhythm without murmurs, gallops, or rubs. RESPIRATORY: Breath sounds equal bilaterally. No accessory muscle use. GASTROINTESTINAL: Abdomen soft, non-tender, nondistended. MUSCULOSKELETAL: Both lower extremities show evidence of peripheral vascular disease. The right lower extremity is significantly more compromised than the left lower extremity. Right lower extremity shows all wounds were stitches remain with evidence of necrotic or gangrenous tissue at some toes and potentially the forefoot and heel. Urinary Catheter Management Straight: Cath placed during this visit: no Indwelling Urethral Catheter: Cath placed during this visit: no Results Labs CBC & Chem 7: 02/10/18 07:56 02/10/18 07:56 Labs: Microbiology 02/09/18 10:17 Wound - Foot Acid Fast Bacilli Smear - Final No acid fast bacilli seen 02/09/18 10:17 Wound - Foot Gram Stain - Final 02/09/18 10:17 Wound - Foot Wound Culture - Preliminary gram negative rods Group D Enterococcus 02/06/18 19:50 Blood - Peripheral Aerobic Blood Culture - Preliminary No growth in 4 days 02/06/18 19:50 Blood - Peripheral Anaerobic Blood Culture - Preliminary No growth in 4 days 02/06/18 19:45 Blood - Peripheral Aerobic Blood Culture - Preliminary No growth in 4 days 02/06/18 19:45 Blood - Peripheral Anaerobic Blood Culture - Preliminary No growth in 4 days 02/09/18 10:17 Wound - Foot Fungal Smear - Final No fungal elements seen Imaging Imaging: Impressions Extremity Arterial Study 02/08/18 00:00 CONCLUSION: 1. Moderately decreased ankle-brachial indices with significant pressure gradients across the thighs bilaterally consistent with femoral outflow disease. 2. Additional decreased pressures across the calves and left toe consistent with some degree of small vessel disease. 3. Recommend CT angiography for further evaluation. Assessment and Plan (1) Gangrene: Code(s): I96 - Gangrene, not elsewhere classified Status: Acute (2) Abscess of right foot: Code(s): L02.611 - Cutaneous abscess of right foot Status: Acute (3) Traumatic hematoma of right foot: Code(s): S90.31XA - Contusion of right foot, initial encounter Status: Acute Plan 82-year-old male admitted secondary to A. fib RVR and evidence of necrotic right lower extremity A. fib RVR Improved Cardiology following Amlodipine discontinued Diltiazem initiated Follow on telemetry Right lower extremity gangrene Podiatry following Vascular surgeon following and recommended BKA. Procedure schedule for this afternoon continue with pain control Hypertension Continue baseline treatment Follow blood pressures Adjust treatments as needed Anemia Monitor blood counts Follow CBC Generalized weakness Failure to thrive Physical therapy following DVT prophylaxis Heparin Progress Note: Quality VTE Deep Vein Thrombosis/Pulmonary Embolism Present on Admission: No _ (1) Traumatic hematoma of right foot Qualifiers: Encounter type:
--- NOTE | 2018-02-10 17:08 | MB ---
cc: Cathy Pandey MD DATE: 02/09/2018 CONSULTING PHYSICIAN: Dr. Pandey, Vascular Surgery REASON FOR CONSULTATION: Gangrene of the right foot. HISTORY OF PRESENT DISEASE; This 82-year-old gentleman presented to the hospital with gangrene of the right foot. This initially started several months ago, but the patient is a very poor historian. He is known to have multiple medical problems and podiatry was consulted. Dr. Mcfarlane evaluated the patient; took the patient now several times to the operating room for debridement of the right foot. At this point, foot is gangrenous; question arises what to do further. PAST MEDICAL HISTORY: Complex. The patient is, on arrival, in atrial fibrillation. He has chronic renal insufficiency, hypertension, coronary artery disease, anemia and failure to thrive. SURGICAL HISTORY: Not known. SOCIAL HISTORY: The patient used to smoke, used to drink. PHYSICAL EXAMINATION: GENERAL: Reveals a pleasant 82-year-old gentleman in no acute distress. HEENT: Normocephalic. No trauma to the head. Pupils are equal and reactive. Extraocular muscles intact. NECK: Bilateral carotid pulses and bilateral faint carotid bruits. CHEST: Bilateral breath sounds. HEART: Regular rhythm at this point. If the patient was in atrial fibrillation in the past, he is not when I examined him. EXTREMITIES: The patient has palpable femoral pulses, Dopplerable popliteal pulses bilateral and there was the posterior tibial on the left; on the right, I do not have any pulses distal because the patient had a dressing on. The right foot is essentially gangrenous. I removed part of the dressing, and Dr. Mcfarlane debrided large amounts of bullous bloody tissue from the surface of the foot and at this point it is demarcated. I discussed this with Dr. Mcfarlane. IMPRESSION: 1. This patient is not a candidate for arteriogram with runoff due to renal failure and renal insufficiency, and this would not change the 2. The patient has gangrenous right foot. This is an unsalvageable situation and I agree with Dr. Mcfarlane that the only way out of this is a below-knee amputation. I have discussed this at length with the patient and with this son. We will take the patient to the operating room for amputation in the next 24-48 hours. MD Kristie Florence , 03:06 PM , 04:24 PM
[2018-02-10] MEDS ORDERED: fentaNYL Citrate Inj 100 MCG/2 ML Ampul ONE (17:40)
--- NOTE | 2018-02-10 20:03 | MP ---
cc: Ej Mcfarlane IVETH DATE OF OPERATION: 02/09/2018 DATE OF SURGERY: 02/09/2018. INDICATIONS FOR PROCEDURE: The patient was seen initially in the hospital with a fluctuant mass to the dorsal aspect of the right foot. He had undergone surgery for the right fifth toe in another facility in [place] approximately 3 weeks prior and was noted to have some gangrenous changes to the right lateral foot and the right medial foot with this fluctuant area to the dorsal aspect of the forefoot, he was noted to have an ESR in the 80s and some other factors that were concerning for infection and after discussing with the patient and the family that in order to rule out abscess since the MRI was inconclusive as a potential source of infection. There did appear to be some gas, possibly noted in the MRI in that area and I discussed with them that it would be a safe bet to go in and at least see if we can get a good culture, do an incision and drainage of abscess versus hematoma to the right foot in order to see if there is any hope for salvaging this foot. I did discuss with the patient and his family, with his permission, however, there was significant necrosis noted to the foot and that I did not feel that the foot would be salvageable ultimately but would give it my best effort. The patient was seen in preop holding by myself, nursing staff and anesthesia, where the correct patient, side, and site were all confirmed to be correct and the right foot. He was then taken to the surgical suite in supine position. The right foot was prepped and draped in sterile fashion. A small incision was made over the dorsal fluctuant area. After timeout per facility protocol were performed hematoma was noted within the area and all of the hematoma tissue was expressed from the dorsal aspect of the forefoot. A culture was also taken followed by irrigation with 3 liters of normal sterile saline. Reapproximation with 2-0 nylon suture. The heel was noted to be significantly necrotic as well as the lateral medial and dorsal foot with no bleeding noted. The only blood loss in this surgery was the old blood from the hematoma. There was no new bleeding noted and the foot was also noted to be cool to touch. New dressing consisting of 4 x 4's, ABD, cast padding and light Brad with no compression were applied to the right lower extremity. He tolerated procedure and anesthesia well without complications and will be weightbearing as tolerated to the right foot and will await vascular evaluation to determine if the foot will be in any way salvageable which I doubt. SHORT OPERATIVE NOTE SURGEON: Ej Mcfarlane DPM MANAGER [employer] SALES: Staff. PREOPERATIVE DIAGNOSES: 1. Abscess, right foot. 2. Traumatic hematoma, right foot. POSTOPERATIVE DIAGNOSIS: Traumatic hematoma, right foot. PROCEDURE PERFORMED: Incision and drainage of abscess versus hematoma, right foot. PATHOLOGY: Culture, right foot. PROPHYLAXIS: Two grams Ancef IV preop. ESTIMATED BLOOD LOSS: 10 mL from hematoma area, but no new bleeding. No tourniquet utilized. COMPLICATIONS: None. CONDITION: Stable to PACU. ANESTHESIA: MAC. DISPOSITION: Await vascular evaluation. Weightbearing as tolerated, right lower extremity and the patient will likely need a [id number] amputation in the very near future. IVETH Metzger/amna , 04:07 PM , 04:20 PM
--- NOTE | 2018-02-10 20:57 | MP ---
cc: Cathy Pandey MD DATE OF OPERATION: 02/10/2018 PREOPERATIVE DIAGNOSIS: Gangrene of the right foot, peripheral vascular disease. POSTOPERATIVE DIAGNOSIS: Gangrene of the right foot, peripheral vascular disease. PROCEDURE PERFORMED: Right below-knee amputation. SURGEON: Cathy Pandey MD ANESTHESIA: General. ESTIMATED BLOOD LOSS: 100 mL. INDICATIONS FOR PROCEDURE: This unfortunate 82-year-old gentleman presented with partial gangrene of the right forefoot and then underwent 2 debridements by podiatry. Unfortunately, this was not salvageable, and the patient now has gangrene of the foot. PROCEDURE IN DETAIL: The patient was prepped and draped in usual fashion. First, incision made anteriorly over the tibia. I then carried out laterally down, creating posterior flap. This was deepened with the cautery medially and laterally. Laterally, anterior tibial artery and veins were clamped, divided, and then, as noted, these are completely occluded. There was no flow there. The patient has very hard calcified vessels, which had to be cut with Solorio scissors to get through them. The muscle was divided, appears to be pale, but viable. This was carried down to the tibia and fibula. A periosteal elevator was used now to elevate both to about 2 inches above the level of the incision, and then both of the transected with oscillating saw, tibia was now shaped by removing the anterior edge, and then smoothed out with a rasp. The thigh tourniquet was inflated, and now with a large lift and amputation knife, the posterior flap was created and the specimen removed. The tourniquet was now released, and meticulous hemostasis obtained of some bleeders of the trifurcation, but the trifurcation was clearly occluded here and patient only has collateral flow. The area irrigated with copious amounts of saline. Stump shaped, and then flipped forward. Incision closed with 0 Vicryl for deep fascia, superficial fascia and skin closed with 2-0 Prolene. Dressing applied. The patient tolerated the procedure well, and was taken out of the operating room in stable condition. MD TYLER Florence/kervin , 06:10 PM , 06:18 PM
[2018-02-11] MEDS: Sod Chloride 0.9% Inj 1,000 ML IV.CONT SCH ×2 (05:45→15:03)
[2018-02-11 05:59] LABS: Hematocrit 26.8 % (39.0-51.0); Hemoglobin 9.3 gm/dL (13.0-17.0); Mean Corpuscular HGB Conc 34.7 % (32.0-36.0); Mean Corpuscular Hemoglobin 32.1 pg (27.0-34.0); Mean Corpuscular Volume 92.6 fL (80.0-100.0); Mean Platelet Volume 6.8 fL (7.0-11.0); Platelet Count 345 th/mm3 (150-450); Red Blood Count 2.89 mil/mm3 (4.50-5.90); Red Cell Distribution Width 13.6 % (11.6-17.2)
[2018-02-11 06:28] LABS: Calcium 7.8 mg/dL (8.5-10.1); Carbon Dioxide 25.8 meq/L (21.0-32.0); Potassium 3.7 meq/L (3.5-5.1)
[2018-02-11] MEDS: Heparin - SQ 10,000 UNITS/ML Vial SQ SCH ×2 (08:18→21:04)
[2018-02-11] MEDS: Metoprolol Tartrate 25 MG Tablet PO SCH ×2 (08:18→21:04)
[2018-02-11] MEDS: dilTIAZem CD 240 MG Capsule PO SCH (08:18)
[2018-02-11] MEDS: Senna/Docusate Sodium 8.6/50 MG Tablet PO SCH ×2 (08:18→21:05)
[2018-02-11] MEDS ORDERED: Naloxone Inj 0.4 MG/ML Vial IV.PUSH PRN (09:38)
[2018-02-11] MEDS ORDERED: Acetaminophen 325 MG Tablet PO PRN (09:38)
--- NOTE | 2018-02-11 12:23 | P.PNIM ---
Subjective Interval history: Complaints of right leg pain after surgery. No complaint of chest pain shortness of breath. Overall doing okay and wants to eat more. Physical Exam Vital signs: Last Vital Signs Temp 99.2 F 02/11/18 08:00 Pulse 98 H 02/11/18 08:00 Resp 14 02/11/18 08:00 BP 166/79 H 02/11/18 08:00 Pulse Ox 99 02/11/18 08:00 Intake & Output 02/09/18 02/10/18 02/11/18 02/12/18 06:59 06:59 06:59 06:59 Intake Total 3240 / 3240 4293 / 4293 3397 / 3397 Output Total 2400 / 2400 4160 / 4160 2875 / 2875 Balance 840 / 840 133 / 133 522 / 522 Weight 75.9 kg 86.8 kg 86.9 kg Narrative: GENERAL: Well-nourished well-developed male no acute distress CARDIOVASCULAR: Regular rate and rhythm without murmurs, gallops, or rubs. RESPIRATORY: Breath sounds equal bilaterally. No accessory muscle use. GASTROINTESTINAL: Abdomen soft, non-tender, nondistended. 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 clean dry and intact Urinary Catheter Management Straight: Cath placed during this visit: no Indwelling Urethral Catheter: Cath placed during this visit: no Results Labs CBC & Chem 7: 02/11/18 04:47 02/11/18 04:47 Labs: Microbiology 02/06/18 19:50 Blood - Peripheral Aerobic Blood Culture - Final No growth in 5 days 02/06/18 19:50 Blood - Peripheral Anaerobic Blood Culture - Final No growth in 5 days 02/06/18 19:45 Blood - Peripheral Aerobic Blood Culture - Final No growth in 5 days 02/06/18 19:45 Blood - Peripheral Anaerobic Blood Culture - Final No growth in 5 days 02/09/18 10:17 Wound - Foot Gram Stain - Final 02/09/18 10:17 Wound - Foot Wound Culture - Preliminary Enterobacter cloacae Enterococcus faecalis S. aureus MRSA 02/09/18 10:17 Wound - Foot Acid Fast Bacilli Smear - Final No acid fast bacilli seen 02/09/18 10:17 Wound - Foot Fungal Smear - Final No fungal elements seen Imaging Imaging: Impressions Extremity Arterial Study 02/08/18 00:00 CONCLUSION: 1. Moderately decreased ankle-brachial indices with significant pressure gradients across the thighs bilaterally consistent with femoral outflow disease. 2. Additional decreased pressures across the calves and left toe consistent with some degree of small vessel disease. 3. Recommend CT angiography for further evaluation. Assessment and Plan (1) Gangrene: Code(s): I96 - Gangrene, not elsewhere classified Status: Acute (2) Abscess of right foot: Code(s): L02.611 - Cutaneous abscess of right foot Status: Acute (3) Traumatic hematoma of right foot: Code(s): S90.31XA - Contusion of right foot, initial encounter Status: Acute Plan 82-year-old male admitted secondary to A. fib RVR and evidence of necrotic right lower extremity A. fib RVRcurrently rate controlled Cardiology following Amlodipine discontinued Diltiazem initiated Follow on telemetry Right lower extremity gangrene status post operative day #1 right BKA with vascular surgery Continue postoperative care, pain control, rehab. Had evaluated previously by podiatry Hypertension, uncontrolled possibly due to the pain Continue baseline treatment for now on metoprolol and Cardizem and increased pain medication. Follow blood pressures Anemia due to chronic kidney disease stage III Hemoglobin remained stable postoperatively Chronic kidney disease stage III-avoid nephrotoxins and monitor creatinine. Currently on Bumex Generalized weakness Failure to thrive Physical therapy following DVT prophylaxis Heparin Progress Note: Quality VTE Deep Vein Thrombosis/Pulmonary Embolism Present on Admission: No _ (1) Traumatic hematoma of right foot Qualifiers: Encounter type:
--- NOTE | 2018-02-11 13:57 | P.PNVS ---
Subjective Subjective/Hospital Course: Referral received today I discussed the case with Dr Mcfarlane and I fully agree with her assessment and approach. Patient is not a candidate for an angiogram in face of renal insufficiency, so there is limited potential for vascular assessment. 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 Chandler on that this is a situation that cannot be remedied by anything but right below-knee amputation Full consult has been dictated and patient is scheduled to go to the OR today 02/11/2018 Patient status post right below-knee amputation Dressing is dry Hemodynamically patient remained stable We will remove the original dressing tomorrow Objective Vital Signs / I&O: Vital Signs 02/10/18 16:00 02/10/18 17:25 02/10/18 17:40 Temperature 98.1 F Pulse Rate 57 L 69 67 Respiratory Rate 20 20 Blood Pressure 129/58 L 129/59 L Pulse Oximetry 100 100 02/10/18 17:55 02/10/18 20:00 02/11/18 00:00 Temperature 97.8 F 98.4 F 97.8 F Pulse Rate 72 73 65 Respiratory Rate 18 20 18 Blood Pressure 133/63 126/60 128/63 Pulse Oximetry 100 99 98 02/11/18 04:00 02/11/18 08:00 Temperature 98.3 F 99.2 F Pulse Rate 77 98 H Respiratory Rate 18 14 Blood Pressure 150/77 H 166/79 H Pulse Oximetry 97 99 Intake & Output 02/10/18 02/11/18 02/11/18 18:59 06:59 18:59 Intake Total 2397 / 2397 1000 / 1000 Output Total 2175 / 2175 700 / 700 Balance 222 / 222 300 / 300 Weight 86.9 kg Intake: IV 1297 / 1297 1000 / 1000 NS Inj 1,000 ML @ 100 mls/hr IV 1297 / 1297 1000 / 1000 .CONT .Q10H JORGE Rx#:[id number] Anesthesia Amount 1100 / 1100 Output: Urine 1000 / 1000 700 / 700 Estimated Blood Loss 100 / 100 Urine Amount (Catheter) 1075 / 1075 Indwelling Urethral Catheter 1075 / 1075 Other: # Bowel Movements 0 Laboratory Results - last 24 hr 02/11/18 02/11/18 04:47 04:47 WBC 10.0 RBC 2.89 L Hgb 9.3 L Hct 26.8 L MCV 92.6 MCH 32.1 MCHC 34.7 RDW 13.6 Plt Count 345 MPV 6.8 L Sodium 138 Potassium 3.7 Chloride 106 Carbon Dioxide 25.8 Anion Gap 6 BUN 27 H Creatinine 2.18 H Estimated GFR 35 L Random Glucose 118 H Calcium 7.8 L Microbiology 02/06/18 19:50 Aerobic Blood Culture - Final Blood - Peripheral No growth in 5 days Anaerobic Blood Culture - Final No growth in 5 days 02/06/18 19:45 Aerobic Blood Culture - Final Blood - Peripheral No growth in 5 days Anaerobic Blood Culture - Final No growth in 5 days 02/09/18 10:17 Gram Stain - Final Wound - Foot Wound Culture - Preliminary Enterobacter cloacae Enterococcus faecalis S. aureus MRSA 02/09/18 10:17 Acid Fast Bacilli Smear - Final Wound - Foot No acid fast bacilli seen 02/09/18 10:17 Fungal Smear - Final Wound - Foot No fungal elements seen Impressions Extremity Arterial Study 02/08/18 00:00 CONCLUSION: 1. Moderately decreased ankle-brachial indices with significant pressure gradients across the thighs bilaterally consistent with femoral outflow disease. 2. Additional decreased pressures across the calves and left toe consistent with some degree of small vessel disease. 3. Recommend CT angiography for further evaluation.
[2018-02-12] MEDS: Sod Chloride 0.9% Inj 1,000 ML IV.CONT SCH ×2 (00:39→09:16)
[2018-02-12] MEDS: Metoprolol Tartrate 25 MG Tablet PO SCH ×2 (09:11→21:29)
[2018-02-12] MEDS: Heparin - SQ 10,000 UNITS/ML Vial SQ SCH ×2 (09:11→21:28)
[2018-02-12] MEDS: Senna/Docusate Sodium 8.6/50 MG Tablet PO SCH ×2 (09:11→21:30)
[2018-02-12] MEDS: dilTIAZem CD 240 MG Capsule PO SCH (09:11)
--- NOTE | 2018-02-12 11:02 | P.PNIM ---
Subjective Interval history: Patient reports right lower leg pain is much better overnight. Tolerating diet. Open to going to rehab. No other complaints at this time. Physical Exam Vital signs: Last Vital Signs Temp 97.9 F 02/12/18 08:00 Pulse 93 H 02/12/18 08:00 Resp 20 02/12/18 08:00 BP 136/79 02/12/18 08:00 Pulse Ox 100 02/12/18 08:00 Intake & Output 02/10/18 02/11/18 02/12/18 02/13/18 06:59 06:59 06:59 06:59 Intake Total 4293 / 4293 3397 / 3397 3550 / 3550 410 / 410 Output Total 4160 / 4160 2875 / 2875 650 / 650 Balance 133 / 133 522 / 522 2900 / 2900 410 / 410 Weight 86.8 kg 86.9 kg 89.3 kg Narrative: GENERAL: Well-nourished well-developed male no acute distress CARDIOVASCULAR: Regular rate and rhythm without murmurs, gallops, or rubs. RESPIRATORY: Breath sounds equal bilaterally. No accessory muscle use. GASTROINTESTINAL: Abdomen soft, non-tender, nondistended. 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 clean dry and intact SKIN: Dry skin over the left lower leg Urinary Catheter Management Straight: Cath placed during this visit: no Indwelling Urethral Catheter: Cath placed during this visit: no Results Labs CBC & Chem 7: 02/11/18 04:47 02/11/18 04:47 Labs: Microbiology 02/09/18 10:17 Wound - Foot Gram Stain - Final 02/09/18 10:17 Wound - Foot Wound Culture - Final Enterobacter cloacae Enterococcus faecalis S. aureus MRSA 02/06/18 19:50 Blood - Peripheral Aerobic Blood Culture - Final No growth in 5 days 02/06/18 19:50 Blood - Peripheral Anaerobic Blood Culture - Final No growth in 5 days 02/06/18 19:45 Blood - Peripheral Aerobic Blood Culture - Final No growth in 5 days 02/06/18 19:45 Blood - Peripheral Anaerobic Blood Culture - Final No growth in 5 days Assessment and Plan (1) Gangrene: Code(s): I96 - Gangrene, not elsewhere classified Status: Acute (2) Abscess of right foot: Code(s): L02.611 - Cutaneous abscess of right foot Status: Acute (3) Traumatic hematoma of right foot: Code(s): S90.31XA - Contusion of right foot, initial encounter Status: Acute Plan 82-year-old male admitted secondary to A. fib RVR and evidence of necrotic right lower extremity A. fib RVRcurrently rate controlled Cardiology following Amlodipine discontinued Continue diltiazem Follow on telemetry Right lower extremity gangrene status post operative day #2 right BKA with vascular surgery Continue postoperative care, wound care, pain control, rehab. Had evaluated previously by podiatry Hypertension, better controlled now with better pain control. Continue baseline treatment for now on metoprolol and Cardizem and increased pain medication. 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 Patient tolerating p.o. we will discontinue IV fluid hydration. Generalized weakness Failure to thrive Physical therapy following DVT prophylaxis Heparin Will need inpatient rehab versus detention facility placement Progress Note: Quality VTE Deep Vein Thrombosis/Pulmonary Embolism Present on Admission: No _ (1) Traumatic hematoma of right foot Qualifiers: Encounter type:
--- NOTE | 2018-02-12 14:19 | P.PNVS ---
Subjective Subjective/Hospital Course: Referral received today I discussed the case with Dr Mcfarlane and I fully agree with her assessment and approach. Patient is not a candidate for an angiogram in face of renal insufficiency, so there is limited potential for vascular assessment. 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 Chandler on that this is a situation that cannot be remedied by anything but right below-knee amputation Full consult has been dictated and patient is scheduled to go to the OR today 02/11/2018 Patient status post right below-knee amputation Dressing is dry Hemodynamically patient remained stable We will remove the original dressing tomorrow 02/12/2018 Dressing from right BKA stump removed Stump is clean and dry healing nicely Will redressed lightly and from my point patient can be discharged anytime Stitches will remain in place for about 3 weeks total Objective Vital Signs / I&O: Vital Signs 02/11/18 15:30 02/11/18 16:00 02/11/18 20:00 Temperature 98.6 F 98.4 F Pulse Rate 92 H 100 H Respiratory Rate 20 16 19 Blood Pressure 142/66 H 138/65 Pulse Oximetry 99 98 02/12/18 00:00 02/12/18 04:00 02/12/18 08:00 Temperature 98.3 F 97.9 F 97.9 F Pulse Rate 80 88 93 H Respiratory Rate 18 17 20 Blood Pressure 141/61 H 134/66 136/79 Pulse Oximetry 97 96 100 02/12/18 12:00 Temperature 98.9 F Pulse Rate 85 Respiratory Rate 18 Blood Pressure 140/73 Pulse Oximetry 100 Intake & Output 02/11/18 02/12/18 02/12/18 18:59 06:59 18:59 Intake Total 1840 / 1840 1710 / 1710 1410 / 1410 Output Total 350 / 350 300 / 300 Balance 1490 / 1490 1410 / 1410 1410 / 1410 Weight 89.3 kg Intake: IV 1000 / 1000 1590 / 1590 1410 / 1410 NS Inj 1,000 ML @ 100 mls/hr IV 1000 / 1000 1590 / 1590 1410 / 1410 .CONT .Q10H JORGE Rx#:[id number] Oral 840 / 840 120 / 120 Output: Urine 350 / 350 300 / 300 Other: Date of Last Bowel Movement 02/09/18 02/11/18 # Bowel Movements 0 Microbiology 02/09/18 10:17 Gram Stain - Final Wound - Foot Wound Culture - Final Enterobacter cloacae Enterococcus faecalis S. aureus MRSA 02/06/18 19:50 Aerobic Blood Culture - Final Blood - Peripheral No growth in 5 days Anaerobic Blood Culture - Final No growth in 5 days 02/06/18 19:45 Aerobic Blood Culture - Final Blood - Peripheral No growth in 5 days Anaerobic Blood Culture - Final No growth in 5 days Impressions Extremity Arterial Study 02/08/18 00:00 CONCLUSION: 1. Moderately decreased ankle-brachial indices with significant pressure gradients across the thighs bilaterally consistent with femoral outflow disease. 2. Additional decreased pressures across the calves and left toe consistent with some degree of small vessel disease. 3. Recommend CT angiography for further evaluation.
[2018-02-12] MEDS: Lactic Acid (Ammonium Lactate) 12% Lotion 225 GM Bottle TOPICAL SCH (21:28)
[2018-02-13] MEDS: Heparin - SQ 10,000 UNITS/ML Vial SQ SCH ×2 (08:19→20:45)
[2018-02-13] MEDS: dilTIAZem CD 240 MG Capsule PO SCH (08:19)
[2018-02-13] MEDS: Senna/Docusate Sodium 8.6/50 MG Tablet PO SCH ×2 (08:21→21:21)
[2018-02-13] MEDS: Metoprolol Tartrate 25 MG Tablet PO SCH ×2 (08:21→20:45)
[2018-02-13] MEDS: Lactic Acid (Ammonium Lactate) 12% Lotion 225 GM Bottle TOPICAL SCH ×2 (08:22→21:27)
--- NOTE | 2018-02-13 10:10 | P.PNIM ---
Subjective Interval history: Patient reports pain controlled. Tolerating diet. Understands he needs to go to rehab to get stronger and later get fitted for prosthesis when wound heals. Physical Exam Vital signs: Last Vital Signs Temp 98.1 F 02/13/18 08:00 Pulse 83 02/13/18 08:10 Resp 16 02/13/18 08:00 BP 138/68 02/13/18 08:00 Pulse Ox 98 02/13/18 08:00 Intake & Output 02/11/18 02/12/18 02/13/18 02/14/18 06:59 06:59 06:59 06:59 Intake Total 3397 / 3397 3550 / 3550 2970 / 2970 Output Total 2875 / 2875 650 / 650 4000 / 4000 Balance 522 / 522 2900 / 2900 -1030 / -1030 Weight 86.9 kg 89.3 kg 86.2 kg Narrative: GENERAL: Well-nourished well-developed male no acute distress CARDIOVASCULAR: Irregular rhythm regular rate RESPIRATORY: Breath sounds equal bilaterally. No accessory muscle use. GASTROINTESTINAL: Abdomen soft, non-tender, nondistended. 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 clean dry and intact SKIN: Dry skin over the left lower leg Urinary Catheter Management Straight: Cath placed during this visit: no Indwelling Urethral Catheter: Cath placed during this visit: no Results Labs CBC & Chem 7: 02/11/18 04:47 02/11/18 04:47 Labs: Microbiology 02/09/18 10:17 Wound - Foot Gram Stain - Final 02/09/18 10:17 Wound - Foot Wound Culture - Final Enterobacter cloacae Enterococcus faecalis S. aureus MRSA Assessment and Plan (1) Gangrene: Code(s): I96 - Gangrene, not elsewhere classified Status: Acute (2) Abscess of right foot: Code(s): L02.611 - Cutaneous abscess of right foot Status: Acute (3) Traumatic hematoma of right foot: Code(s): S90.31XA - Contusion of right foot, initial encounter Status: Acute Plan 82-year-old male admitted secondary to A. fib RVR and evidence of necrotic right lower extremity A. fib RVRcurrently rate controlled Cardiology has seen the patient and recommended diltiazem Amlodipine discontinued Continue diltiazem Follow on telemetry Right lower extremity gangrene status post operative day #3 right BKA with vascular surgery Continue postoperative care, wound care, pain control, rehab. Vascular surgery has cleared the patient for discharge. Had evaluated previously by podiatry Hypertension, better controlled now with better pain control. Continue baseline treatment for now on metoprolol and Cardizem and increased pain medication. 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 Patient tolerating p.o. we will discontinue IV fluid hydration. Generalized weakness Failure to thrive Physical therapy following DVT prophylaxis [facility]arin [facility] facility. Per case management, son does not have time to visit and select a choice today. Progress Note: Quality VTE Deep Vein Thrombosis/Pulmonary Embolism Present on Admission: No _ (1) Traumatic hematoma of right foot Qualifiers: Encounter type:
[2018-02-14] MEDS: Heparin - SQ 10,000 UNITS/ML Vial SQ SCH ×2 (08:28→21:42)
[2018-02-14] MEDS: dilTIAZem CD 240 MG Capsule PO SCH (08:29)
[2018-02-14] MEDS: Senna/Docusate Sodium 8.6/50 MG Tablet PO SCH ×2 (08:30→21:42)
[2018-02-14] MEDS: Metoprolol Tartrate 25 MG Tablet PO SCH ×2 (08:30→21:42)
[2018-02-14] MEDS: Lactic Acid (Ammonium Lactate) 12% Lotion 225 GM Bottle TOPICAL SCH ×2 (08:32→21:42)
--- NOTE | 2018-02-14 10:09 | P.PNIM ---
Subjective Interval history: Reports pain control. Trying to eat breakfast. No other concerns at this time. Physical Exam Vital signs: Last Vital Signs Temp 97.9 F 02/14/18 08:00 Pulse 90 02/14/18 08:10 Resp 18 02/14/18 08:10 BP 155/86 H 02/14/18 08:00 Pulse Ox 99 02/14/18 08:00 Intake & Output 02/12/18 02/13/18 02/14/18 02/15/18 06:59 06:59 06:59 06:59 Intake Total 3550 / 3550 2970 / 2970 480 / 480 Output Total 650 / 650 4000 / 4000 2430 / 2430 Balance 2900 / 2900 -1030 / -1030 -1950 / -1950 Weight 89.3 kg 86.2 kg 84.2 kg Narrative: GENERAL: Well-nourished well-developed male no acute distress CARDIOVASCULAR: Irregular rhythm regular rate RESPIRATORY: Breath sounds equal bilaterally. No accessory muscle use. GASTROINTESTINAL: Abdomen soft, non-tender, nondistended. 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 clean dry and intact SKIN: Dry skin over the left lower leg Urinary Catheter Management Straight: Cath placed during this visit: no Indwelling Urethral Catheter: Cath placed during this visit: no Condom: Cath placed during this visit: no Results Labs CBC & Chem 7: 02/11/18 04:47 02/11/18 04:47 Assessment and Plan (1) Gangrene: Code(s): I96 - Gangrene, not elsewhere classified Status: Acute (2) Abscess of right foot: Code(s): L02.611 - Cutaneous abscess of right foot Status: Acute (3) Traumatic hematoma of right foot: Code(s): S90.31XA - Contusion of right foot, initial encounter Status: Acute Plan 82-year-old male admitted secondary to A. fib RVR and evidence of necrotic right lower extremity A. fib RVRcurrently rate controlled Cardiology has seen the patient and recommended diltiazem Continue diltiazem Follow on telemetry Right lower extremity gangrene status post operative day #4 right BKA with vascular surgery Continue postoperative care, wound care, pain control, rehab. Vascular surgery has cleared the patient for discharge. Had evaluated previously by podiatry Hypertension, better controlled now with better pain control. Continue baseline treatment for now on metoprolol and Cardizem and increased pain medication. 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 Patient tolerating p.o. we will discontinue IV fluid hydration. Generalized weakness Failure to thrive add Ensure to the supplement. Physical therapy following DVT prophylaxis Heparin Discharge to detention facility. I discussed with the son today, he will call back later this afternoon or evening when he and his family decides on a detention facility. I assured the son that the patient is doing well to be discharged to the detention facility for continued rehab. Progress Note: Quality VTE Deep Vein Thrombosis/Pulmonary Embolism Present on Admission: No _ (1) Traumatic hematoma of right foot Qualifiers: Encounter type:
[2018-02-15] MEDS: Metoprolol Tartrate 25 MG Tablet PO SCH ×2 (09:39→20:52)
[2018-02-15] MEDS: dilTIAZem CD 240 MG Capsule PO SCH (09:39)
[2018-02-15] MEDS: Heparin - SQ 10,000 UNITS/ML Vial SQ SCH ×2 (09:39→20:52)
[2018-02-15] MEDS: Senna/Docusate Sodium 8.6/50 MG Tablet PO SCH ×2 (09:39→20:53)
[2018-02-15] MEDS: Lactic Acid (Ammonium Lactate) 12% Lotion 225 GM Bottle TOPICAL SCH ×2 (09:40→20:53)
--- NOTE | 2018-02-15 11:06 | P.PNIM ---
Subjective Interval history: States that he has better appetite and wants to eat the breakfast. Is motivated to do physical therapy today and would like to be fit in the future for prosthesis and walk again. Physical Exam Vital signs: Last Vital Signs Temp 97.2 F L 02/15/18 08:00 Pulse 84 02/15/18 08:00 Resp 18 02/15/18 08:00 BP 164/79 H 02/15/18 08:00 Pulse Ox 97 02/15/18 08:00 Intake & Output 02/13/18 02/14/18 02/15/18 02/16/18 06:59 06:59 06:59 06:59 Intake Total 2970 / 2970 480 / 480 360 / 360 Output Total 4000 / 4000 2430 / 2430 1250 / 1250 Balance -1030 / -1030 -1950 / -1950 -890 / -890 Weight 86.2 kg 84.2 kg 82.6 kg Narrative: GENERAL: Well-nourished well-developed male no acute distress CARDIOVASCULAR: Irregular rhythm regular rate RESPIRATORY: Breath sounds equal bilaterally. No accessory muscle use. GASTROINTESTINAL: Abdomen soft, non-tender, nondistended. 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 clean dry and intact SKIN: Dry skin over the left lower leg Urinary Catheter Management Straight: Cath placed during this visit: no Indwelling Urethral Catheter: Cath placed during this visit: no Condom: Cath placed during this visit: no Results Labs CBC & Chem 7: 02/11/18 04:47 02/11/18 04:47 Assessment and Plan (1) Gangrene: Code(s): I96 - Gangrene, not elsewhere classified Status: Acute (2) Abscess of right foot: Code(s): L02.611 - Cutaneous abscess of right foot Status: Acute (3) Traumatic hematoma of right foot: Code(s): S90.31XA - Contusion of right foot, initial encounter Status: Acute Plan 82-year-old male admitted secondary to A. fib RVR and evidence of necrotic right lower extremity A. fib RVRcurrently rate controlled on diltiazem Cardiology has seen the patient and recommended diltiazem Follow on telemetry Right lower extremity gangrene status post operative day #5 right BKA with vascular surgery Continue postoperative care, wound care, pain control, rehab. Vascular surgery has cleared the patient for discharge. Had evaluated previously by podiatry Hypertension, better controlled now with better pain control. Continue baseline treatment for now on metoprolol and Cardizem and increased pain medication. 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 Patient tolerating p.o. we will discontinue IV fluid hydration. Generalized weakness Failure to thrive add Ensure to the supplement. Physical therapy following DVT prophylaxis Heparin [facility]. I discussed with the son yesterday, he is working to [facility] I assured the son that the patient is doing well to be discharged to the [facility]iary facility for continued rehab. Progress Note: Quality VTE Deep Vein Thrombosis/Pulmonary Embolism Present on Admission: No _ (1) Traumatic hematoma of right foot Qualifiers: Encounter type:
[2018-02-16] MEDS: Heparin - SQ 10,000 UNITS/ML Vial SQ SCH ×2 (10:32→22:05)
[2018-02-16] MEDS: dilTIAZem CD 240 MG Capsule PO SCH (10:32)
[2018-02-16] MEDS: Lactic Acid (Ammonium Lactate) 12% Lotion 225 GM Bottle TOPICAL SCH ×2 (10:32→22:05)
[2018-02-16] MEDS: Senna/Docusate Sodium 8.6/50 MG Tablet PO SCH ×2 (10:32→22:05)
[2018-02-16] MEDS: Metoprolol Tartrate 25 MG Tablet PO SCH ×2 (10:32→22:05)
--- NOTE | 2018-02-16 10:42 | P.PNIM ---
Subjective Interval history: Pain control. Will be eating breakfast. Still would like to go to rehab. No other concerns at this time. Physical Exam Vital signs: Last Vital Signs Temp 97.3 F L 02/16/18 04:00 Pulse 76 02/16/18 04:00 Resp 18 02/16/18 04:00 BP 133/63 02/16/18 04:00 Pulse Ox 97 02/16/18 04:00 Intake & Output 02/14/18 02/15/18 02/16/18 02/17/18 06:59 06:59 06:59 06:59 Intake Total 480 / 480 360 / 360 600 / 600 Output Total 2430 / 2430 1250 / 1250 2200 / 2200 Balance -1950 / -1950 -890 / -890 -1600 / -1600 Weight 84.2 kg 82.6 kg 82.1 kg Narrative: GENERAL: Well-nourished well-developed male no acute distress CARDIOVASCULAR: Irregular rhythm regular rate RESPIRATORY: Breath sounds equal bilaterally. No accessory muscle use. GASTROINTESTINAL: Abdomen soft, non-tender, nondistended. 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 clean dry and intact, right lower extremity with SCD Urinary Catheter Management Straight: Cath placed during this visit: no Indwelling Urethral Catheter: Cath placed during this visit: no Condom: Cath placed during this visit: no Results Labs CBC & Chem 7: 02/11/18 04:47 02/11/18 04:47 Assessment and Plan (1) Gangrene: Code(s): I96 - Gangrene, not elsewhere classified Status: Acute (2) Abscess of right foot: Code(s): L02.611 - Cutaneous abscess of right foot Status: Acute (3) Traumatic hematoma of right foot: Code(s): S90.31XA - Contusion of right foot, initial encounter Status: Acute Plan 82-year-old male admitted secondary to A. fib RVR and evidence of necrotic right lower extremity A. fib RVRcurrently rate controlled on diltiazem Cardiology has seen the patient and recommended diltiazem Patient has been stable, discontinue telemetry Right lower extremity gangrene status post operative day #6 right BKA with vascular surgery Continue postoperative care, wound care, pain control, rehab. Vascular surgery has cleared the patient for discharge. Had evaluated previously by podiatry Hypertension, better controlled now with better pain control. Continue baseline treatment for now on metoprolol and Cardizem and increased pain medication. 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 Patient tolerating p.o. we will discontinue IV fluid hydration. Generalized weakness Failure to thrive add Ensure to the supplement. Physical therapy following DVT prophylaxis Heparin Discharge to [facility] facility. I discussed with the son 02/14, he is working to [facility] and now has chosen [facility] and rehab I assured the son that the patient is doing well to be discharged to the [facility] facility for continued rehab. Progress Note: Quality VTE Deep Vein Thrombosis/Pulmonary Embolism Present on Admission: No _ (1) Traumatic hematoma of right foot Qualifiers: Encounter type:
[2018-02-17] MEDS: dilTIAZem CD 240 MG Capsule PO SCH (08:10)
[2018-02-17] MEDS: Metoprolol Tartrate 25 MG Tablet PO SCH ×2 (08:11→21:55)
[2018-02-17] MEDS: Heparin - SQ 10,000 UNITS/ML Vial SQ SCH ×2 (08:11→21:55)
[2018-02-17] MEDS: Lactic Acid (Ammonium Lactate) 12% Lotion 225 GM Bottle TOPICAL SCH (08:14)
[2018-02-17] MEDS: Senna/Docusate Sodium 8.6/50 MG Tablet PO SCH ×2 (08:14→21:56)
--- NOTE | 2018-02-17 10:34 | P.PNIM ---
Subjective Interval history: Doing okay with no complaints. Eating better and participating with physical therapy. Physical Exam Vital signs: Last Vital Signs Temp 97.9 F 02/17/18 08:00 Pulse 85 02/17/18 08:00 Resp 19 02/17/18 08:00 BP 123/59 L 02/17/18 08:00 Pulse Ox 98 02/17/18 08:00 Intake & Output 02/15/18 02/16/18 02/17/18 02/18/18 06:59 06:59 06:59 06:59 Intake Total 360 / 360 600 / 600 760 / 760 Output Total 1250 / 1250 2200 / 2200 1125 / 1125 Balance -890 / -890 -1600 / -1600 -365 / -365 Weight 82.6 kg 82.1 kg 81.4 kg Narrative: GENERAL: Well-nourished well-developed male no acute distress CARDIOVASCULAR: Irregular rhythm regular rate RESPIRATORY: Breath sounds equal bilaterally. No accessory muscle use. GASTROINTESTINAL: Abdomen soft, non-tender, nondistended. 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 clean dry and intact, right lower extremity with SCD Urinary Catheter Management Straight: Cath placed during this visit: no Indwelling Urethral Catheter: Cath placed during this visit: no Condom: Cath placed during this visit: no Results Labs CBC & Chem 7: 02/11/18 04:47 02/11/18 04:47 Labs: Microbiology 02/09/18 10:17 Wound - Foot Fungal Smear - Final No fungal elements seen 02/09/18 10:17 Wound - Foot Fungal Culture - Preliminary No growth in 1 week 02/09/18 10:17 Wound - Foot Acid Fast Bacilli Smear - Final No acid fast bacilli seen 02/09/18 10:17 Wound - Foot Mycobacterial Culture - Preliminary No growth in 1 week Assessment and Plan (1) Gangrene: Code(s): I96 - Gangrene, not elsewhere classified Status: Acute (2) Abscess of right foot: Code(s): L02.611 - Cutaneous abscess of right foot Status: Acute (3) Traumatic hematoma of right foot: Code(s): S90.31XA - Contusion of right foot, initial encounter Status: Acute Plan 82-year-old male admitted secondary to A. fib RVR and evidence of necrotic right lower extremity A. fib RVRcurrently rate controlled on diltiazem Cardiology has seen the patient and recommended diltiazem Patient has been stable, discontinue telemetry yesterday Right lower extremity gangrene status post operative day #7 right BKA with vascular surgery Continue postoperative care, wound care, pain control, rehab. Vascular surgery has cleared the patient for discharge. Had evaluated previously by podiatry Follow-up with rehab medicine in 1-2-week with evaluation for prosthesis Hypertension, better controlled now with better pain control. Continue baseline treatment for now on metoprolol and Cardizem and increased pain medication. 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 Patient tolerating p.o. we will discontinue IV fluid hydration. Generalized weakness Failure to thrive add Ensure to the supplement. Physical therapy following DVT prophylaxis Heparin Discharge to shelter facility. I discussed with the son 02/14, he is working to [facility] and now has chosen [facility] I assured the son that the patient is doing well to be discharged to the shelter facility for continued rehab. Progress Note: Quality VTE Deep Vein Thrombosis/Pulmonary Embolism Present on Admission: No _ (1) Traumatic hematoma of right foot Qualifiers: Encounter type:
[2018-02-17] MEDS ORDERED: Polyethylene Glycol 3350 17 GM Packet PO ONE (14:28)
[2018-02-18] MEDS: Senna/Docusate Sodium 8.6/50 MG Tablet PO SCH (08:30)
[2018-02-18] MEDS: dilTIAZem CD 240 MG Capsule PO SCH (08:30)
[2018-02-18] MEDS: Metoprolol Tartrate 25 MG Tablet PO SCH (08:31)
[2018-02-18] MEDS: Heparin - SQ 10,000 UNITS/ML Vial SQ SCH (08:32)
--- NOTE | 2018-02-18 12:16 | P.PNIM ---
Subjective Interval history: Patient reports pain is controlled. Wants help opening his milk to put in the cup. Otherwise ready to go to rehab. Had a large stool yesterday. Physical Exam Vital signs: Last Vital Signs Temp 98.2 F 02/18/18 08:00 Pulse 97 H 02/18/18 08:00 Resp 20 02/18/18 08:00 BP 108/55 L 02/18/18 08:00 Pulse Ox 97 02/18/18 08:00 Intake & Output 02/16/18 02/17/18 02/18/18 02/19/18 06:59 06:59 06:59 06:59 Intake Total 600 / 600 760 / 760 590 / 590 Output Total 2200 / 2200 1125 / 1125 1000 / 1000 Balance -1600 / -1600 -365 / -365 -410 / -410 Weight 82.1 kg 81.4 kg 81.4 kg Narrative: GENERAL: Well-nourished well-developed male no acute distress CARDIOVASCULAR: Irregular rhythm regular rate RESPIRATORY: Breath sounds equal bilaterally. No accessory muscle use. GASTROINTESTINAL: Abdomen soft, non-tender, nondistended. 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 clean dry and intact, right lower extremity with SCD Urinary Catheter Management Straight: Cath placed during this visit: no Indwelling Urethral Catheter: Cath placed during this visit: no Condom: Cath placed during this visit: no Results Labs CBC & Chem 7: 02/11/18 04:47 02/11/18 04:47 Assessment and Plan (1) Gangrene: Code(s): I96 - Gangrene, not elsewhere classified Status: Acute (2) Abscess of right foot: Code(s): L02.611 - Cutaneous abscess of right foot Status: Acute (3) Traumatic hematoma of right foot: Code(s): S90.31XA - Contusion of right foot, initial encounter Status: Acute Plan 82-year-old male admitted secondary to A. fib RVR and evidence of necrotic right lower extremity A. fib RVRcurrently rate controlled on diltiazem Cardiology has seen the patient and recommended diltiazem Right lower extremity gangrene status post operative day #8 right BKA with vascular surgery Continue postoperative care, wound care, pain control, rehab. Vascular surgery has cleared the patient for discharge. Had evaluated previously by podiatry Follow-up with rehab medicine in 1-2-week with evaluation for prosthesis Hypertension, better controlled now with better pain control. Continue baseline treatment for now on metoprolol and Cardizem and increased pain medication. 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 Generalized weakness Failure to thrive add Ensure to the supplement. Physical therapy following DVT prophylaxis Heparin Discharge to correction facility. I discussed with the son 02/14, [facility] [employer] [facility] and now has chosen [facility] I assured the son that the patient is doing well to be discharged to the correction facility for continued rehab. Patient is scheduled to be discharged today to correction facility Progress Note: Quality VTE Deep Vein Thrombosis/Pulmonary Embolism Present on Admission: No _ (1) Traumatic hematoma of right foot Qualifiers: Encounter type:
== END 2018-02-18 13:51 ==
LOC: NEPE 18:57 → NEDA 22:50 → HCIS 02-07 00:30 → N04 02-09 21:11
PROVIDERS: ADMIT Family Medicine; ATTEND Family Medicine
DX: D52.9 Folate deficiency anemia, unspecified; L97.419 Non-pressure chronic ulcer of right heel and midfoot with unspecified severity; R62.7 Adult failure to thrive; Z86.73 Personal history of transient ischemic attack (TIA), and cerebral infarction without residual deficits; N18.4 Chronic kidney disease, stage 4 (severe); I16.0 Hypertensive urgency; I25.10 Atherosclerotic heart disease of native coronary artery without angina pectoris; Z79.899 Other long term (current) drug therapy; I12.9 Hypertensive chronic kidney disease with stage 1 through stage 4 chronic kidney disease, or unspecified chronic kidney disease; T81.49XA Infection following a procedure, other surgical site, initial encounter; I48.91 Unspecified atrial fibrillation; B95.62 Methicillin resistant Staphylococcus aureus infection as the cause of diseases classified elsewhere; Z87.891 Personal history of nicotine dependence; D63.1 Anemia in chronic kidney disease; S90.31XA Contusion of right foot, initial encounter; I70.234 Atherosclerosis of native arteries of right leg with ulceration of heel and midfoot; L02.611 Cutaneous abscess of right foot; D50.9 Iron deficiency anemia, unspecified; D51.9 Vitamin B12 deficiency anemia, unspecified; L97.429 Non-pressure chronic ulcer of left heel and midfoot with unspecified severity; L03.116 Cellulitis of left lower limb; I70.262 Atherosclerosis of native arteries of extremities with gangrene, left leg; M96.840 Postprocedural hematoma of a musculoskeletal structure following a musculoskeletal system procedure; D61.9 Aplastic anemia, unspecified; I47.1 Supraventricular tachycardia; D58.9 Hereditary hemolytic anemia, unspecified